=== PATIENT | female | born 1940 | race Caucasian/White ===

== ENCOUNTER → 2019-03-27 | Outpatient (CLI) | payer MEDICARE, OTHER ==
--- NOTE | 2019-03-27 15:55 | XR ---
EXAMINATION TYPE: XR Hip Complete RT DATE OF EXAM: 03/27/2019 CLINICAL HISTORY: Right hip pain and osteoarthritis. TECHNIQUE: Single AP portable view of right hip is obtained immediately postoperatively. COMPARISON: None. FINDINGS: Metallic hardware from right hip arthroplasty is seen and appears satisfactory in alignment and position. There is evidence of recent surgery with subcutaneous gas noted laterally. IMPRESSION: Metallic hardware from right hip arthroplasty is satisfactory in position.
== END | disposition home or self-care (01) ==
LOC: RADXRYALE 15:31
PROVIDERS: ATTEND Orthopaedic Surgery
DX: Z47.1 Aftercare following joint replacement surgery (principal); Z96.641 Presence of right artificial hip joint
CPT/HCPCS: 73502

== ENCOUNTER → 2021-08-08 | Outpatient (CLI) | payer MEDICARE ==
--- NOTE | 2021-08-08 14:10 | CT ---
EXAMINATION TYPE: CT cervical spine wo/w con DATE OF EXAM: 08/08/2021 COMPARISON: None HISTORY: Cspine disorder at C4/5 CT DLP: 606.7 mGycm CONTRAST: Performed without and with IV Contrast, patient injected with 100 mL of Isovue M300. CT of the cervical spine is performed in the axial plane at 2 mm thick sections. Reconstructed image s in the coronal, and sagittal plane are reviewed on the computer. No acute fractures are evident. Vertebral body alignment is normal. There is loss of disc height to the cervical spine. Some endplate Schmorl's node formation may be pre sent at C3. Vertebral body heights are preserved. No spinal canal stenosis is evident Uncovertebral joint hypertrophy is present on the right at C4-C5 with moderate foraminal stenosis. Mi ld bilateral foraminal narrowing is present C5-6 and on the left mildly at C6-7. Following contrast administration no suspicious enhancement is evident. Note is made of calcification of bilateral carotid bifurcations. IMPRESSIONS: 1. Degenerative disc changes through the cervical spine. 2. Some uncovertebral joint hypertrophy is contributing to mild foraminal narrowing discussed above
== END | disposition home or self-care (01) ==
LOC: RADCTMAIN 12:26
PROVIDERS: ATTEND Internal Medicine
DX: M50.30 Other cervical disc degeneration, unspecified cervical region (principal); M50.121 Cervical disc disorder at C4-C5 level with radiculopathy; N28.9 Disorder of kidney and ureter, unspecified
CPT/HCPCS: 82565; 84520; 72127; 36415; Q9967

== ENCOUNTER → 2021-12-10 | Outpatient (CLI) | payer MEDICARE ==
[2021-12-10 11:52] VITALS: BP 145/65; PULSE 62; RESP 18; TEMP 97.7
--- NOTE | 2021-12-10 11:58 | P.CON ---
Consult Note - . Consult date: 12/10/21 Assessment/Plan:: HISTORY OF PRESENT ILLNESS: 81 yr old female as a referral from Dr Le presents today for neck pain. States pain is generally a 5 /10 in intensity, dull and achy in the base of the neck, but sometimes shoots towards the shoulders. With lateral flexion and rotation to the left side, she will feel a cramp & spasm that can last for hours or days. Also admits to on & off tingling in the fingers bilaterally. States this pain has been on & off for about a year. Pt is palliated with medications, patches, heat, physical therapy, massage integrated with physical therapy and use of a soft C collar. PMH: Obesity, Hypothyroidism PSH: Bilateral knee surgeries, Gastric bypass, Hysterectomy, SBO SH: . Denies tobacco or ETOH abuse FH: DM All: See list Meds: See list REVIEW OF ORGAN SYSTEMS: CONSTITUTIONAL: No fevers or chills. No recent weight loss. HEENT: No visual acuity loss, eye pain, difficulties with hearing. No nosebleeds. No difficulty swallowing. RESPIRATORY: Denies any troubles with breathing or dyspnea on exertion. CARDIOVASCULAR: Denies any chest pain, palpitations, or recent heart attacks. GASTROINTESTINAL: Denies fatty food intolerance. Has change in bowel habits and gas bloat. GENITOURINARY: Denies any blood in urine. Has increased urinary frequency. NEUROLOGICAL: + numbness and tingling along the distal extremities. No seizure disorders or headaches. MUSCULOSKELETAL: + back pain SKIN: No skin cancer. No rash. PSYCHIATRIC: Denies current depression or suicidal thoughts. ENDOCRINE: Denies current thyroid disorders. Denies any blood sugar glucose intolerance. HEME/LYMPHATIC: Denies any lumps and bumps around the neck. History of deep venous thrombosis. ALLERGY/IMMUNOLOGY: No immunoglobulin therapy. No immune deficiencies. BREAST: Denies current breast lumps, pain or nipple discharge. Physical Examinations : Constitutional : Cooperative , not in acute distress . HEENT: Neck supple. No Lymphadenopathy. Normal thyroid size . Eyes no ptosis , no icterus, no photophobia . Hearing intact. Normal oropharynx. No Thrush. Respiratory : Chest clear to auscultations bilaterally. No wheezing. No rhonchi. Cardiovascular : Regular rate and rhythm , S1 / S2. No S3 . No S4. Gastrointestinal : Abdomen soft. No tenderness. Bowel sounds x 4. No organomegaly . Genitourinary : Deferred. Neurologic : Cranial nerve II to XII intact. No focal neurological deficits. Psychiatric : alert & oriented x 3. Matching mood & appropriate affect. Judgment & insight intact. Lymphatic No Lymphadenopathy. Musculoskeletal : Cervical Spine Motor strength in the deltoid and biceps: Normal right side. Normal Left side Motor strength biceps and the wrist extensors: Normal right side . Normal left side Motor strength in the triceps muscle: Normal right side. Normal left side Deep tendon reflexes: Normal at the biceps. Normal at Brachioradialis. Normal at triceps Cervical facet loading test: positive on the left at C6 & C7 Spurling test: positive bilaterally Neck distraction test: positive bilaterally Barry sign: positive bilaterally Lumbar spine Motor strength lower extremities ,thigh and legs 5/5 Right side , 5/5 Left side Deep tendon reflexes : Normal Knee Jerk. Normal Ankle Jerk Lumbar facet Loading Test: positive Right / positive Left Range of motion of the lumbar spine Flexion 30 degrees, extension 10 degrees Straight Leg Raise test: Left/ Right positive at degree Lauryn test: positive right / positive left. Severe tenderness over the Sacroiliac joint on the Right / Left sides Gaenslen test: positive bilaterally Seated flexion test: positive bilaterally. Imaging of cervical spine reviewed. Assessment/ Plan : Recommendation of MBB of left C5-C6, C6-C7 Discontinue ASA 5 days prior to procedure May need additional MBBs and/ or RFA based on results Risks/ benefits of procedure discussed and pt verbalized understanding Will follow up 2-4 weeks post procedure for assessment & re evaluation I have spent greater than 50 minutes on patient care today. Dr Graham was available by phone for the evaluation of this patient. The time was used to review the medical records including relevant urine studies and Prescription history (MAPs), review of the available imaging, evaluation and examination of the patient, coordination of care with the medical staff and if applicable referring physicians, as well as creation of the medical record PQRS Measure Charge Sheet Mode of Arrival: Ambulatory - Pain Location Neck Non-Pharmacological Interventions: Heat, Inactivity, Position/Reposition Pharmacological Interventions: PRN Medication, Topical Medication PQRS Narrative: Smoking Status Never smoker Blood Pressure 145/65 Pain Intensity [Neck] 5 Scale Used Numeric (1 - 10) Hx Alcohol Use (MH) Yes Home Medications: Ambulatory Orders Acetaminophen/Diphenhydramine [Tylenol PM 500-25mg] 2 tab PO HS PRN 11/11/15 Multivitamins, Thera [Theragran] 1 each PO DAILY 11/11/15 traMADol HCL [Ultram] 50 mg PO RT-Q12H PRN 11/20/21
== END ==
LOC: PNWHC3 10:24
PROVIDERS: ATTEND Physician Assistant Medical
DX: M54.12 Radiculopathy, cervical region (principal); E03.9 Hypothyroidism, unspecified; Z91.040 Latex allergy status; Z88.8 Allergy status to other drugs, medicaments and biological substances; Z88.6 Allergy status to analgesic agent; Z88.5 Allergy status to narcotic agent; Z91.041 Radiographic dye allergy status
CPT/HCPCS: 99211

== ENCOUNTER 2022-01-23 12:44 | Day surgery (SDC) | payer MEDICARE ==
[2022-01-22 09:42] VITALS: BMI 33.3
--- NOTE | 2022-01-23 13:28 | P.PCN ---
Date of Procedure: 01/23/22 Description of Procedure: Procedure: Cervical Medial Branch Block at left C5 6 and C6-C7 Indications: Neck Pain Diagnosis: Cervical spondylosis without myelopathy Imaging: Fluoroscopy was used, images where saved to the medical record Anesthesia: Per nurse anesthesia please see anesthesia record Description of procedure: The patient was seen and examined in the PO. Symptoms were discussed. I made it very clear that the neck pain and only the neck pain would improve from this procedure, Procedure risks and benefits were fully reviewed with patient. The patient understands this is a diagnostic as well as a therapeutic procedure and that the goal of the procedure is to inject medication on to the medial branch or small nerves that go into the facet joints. In this way, we can hopefully identify which of these joints, if any, may be contributing to their pain. Informed consent for the procedure was obtained. The patient was taken into the office fluoroscopy procedure room and placed supine on the table. Vital signs were closely monitored during the procedure. The skin over the area was prepped with chlorhexidine and draped in usual ster ile manner. Sterile technique was observed throughout procedure. Under fluoroscopic guidance, the target injection areas of the the above noted level's medial branches were visualized in lateral views. Using biplanar fluoroscopy, a 25 gauge 2 inch needle was inserted into proper position where the tip of the needle was located at the midpoint of the quadrangle at each level. After negative aspiration for blood and CSF, 0.5cc of 0.5 % Ropivacaine was injected into each of the targeted areas. The needles were withdrawn intact. No complications were noted during the procedure. The patient tolerated procedure well. The patient was placed in supine position and transferred to the recovery area for observation and remained stable until discharged home. Home discharge instructions given to the patient by the staff. The patient was reexamined prior to discharge. Follow up/plan: If the patient has greater than 80% relief, she should have a second medial branch block done.
[2022-01-23] MEDS ORDERED: LACTATED RINGERS 900 ML IV ONE (13:31)
[2022-01-23] MEDS ORDERED: ROPIVACAINE 5MG/ML 20ML VIAL ONE (13:33)
[2022-01-23] MEDS ORDERED: MIDAZOLAM 2 MG/2 ML VIAL ONE (13:33)
[2022-01-23 13:34] VITALS: TEMP 97.4
[2022-01-23] MEDS ORDERED: IV FLUID CONTINUATION 1,000 ML IV ONE ×2 (13:48)
--- NOTE | 2022-01-23 14:02 | FL ---
Fluoroscopy History: Cervical pain management 5 SEC FL TIME USED CERVICAL FACET
[2022-01-23 14:16] VITALS: BP 139/79; PULSE 75; RESP 16
== END 2022-01-23 14:27 | disposition home or self-care (01) ==
LOC: ORPAIN 12:44
PROVIDERS: ATTEND Hospitalist
DX: M47.812 Spondylosis without myelopathy or radiculopathy, cervical region (principal); Z87.442 Personal history of urinary calculi; Z79.891 Long term (current) use of opiate analgesic; Z88.5 Allergy status to narcotic agent; Z88.8 Allergy status to other drugs, medicaments and biological substances; Z88.6 Allergy status to analgesic agent; Z91.040 Latex allergy status
CPT/HCPCS: 64490; 64491; J2250; J2795

== ENCOUNTER → 2022-03-13 | Day surgery (SDC) | payer MEDICARE ==
[~2022-03-13] MED LIST: DEXAMETHASONE SOD PHOSPHATE 10 MG/ML 1 ML VIAL ONE; IV FLUID CONTINUATION 1,000 ML IV ONE; LACTATED RINGERS 1,000 ML IV SCH; LIDOCAINE 1% (10MG/ML) FOR IV START INTRADERMA PRN; MIDAZOLAM 2 MG/2 ML VIAL ONE; ROPIVACAINE 5MG/ML 20ML VIAL ONE; fentaNYL (PF) 50 MCG/ML 2 ML AMP ONE
[2022-03-13 12:39] VITALS: TEMP 97.2
--- NOTE | 2022-03-13 13:39 | P.PCN ---
Date of Procedure: 03/13/22 Procedure(s) Performed: PREOPERATIVE DIAGNOSIS: 1-Cervical Spondylosis with Facet Arthropathy.without myelopathy. 2-cervical degenerative disc disease POSTOPERATIVE DIAGNOSIS: Same as preoperative diagnosis. PROCEDURES: Diagnostic Left C5 , C6 , C7 medial branch blocks, with fluorosc opic guidance (fluoroscopy images available in radiology department ) ( to target the facet joint at C5- 6, C6-7 )# 2nd ANESTHESIA: Monitored anesthesia care as per anesthesia department . EBL: Minimal PROCEDURE INDICATION: The patient with neck pain secondary to cervical arthropathy unresponsive to more conservative treatments. PROCEDURE DESCRIPTION / TECHNIQUE: The patient was seen and identified in the preoperative area. Risks, benefits, complications, and alternatives were discussed with the patient, the patient agreed to proceed with the procedure and signed the consent. IV was started. Vital signs remained stable throughout the procedure. Patient was taken to the OR and time out was completed. The patient was placed in the lateral position ( left side up )on the procedure table. The cervical area was prepped and draped in the usual sterile fashion. Critical pause was taken. Vital signs were closely monitored during the procedure. Conscious sedation was used during the procedure to decrease patients anxiety. Using cross-table lateral fluoroscopy, the centroid of the trapezoid of left C5 , C6, C7 was identified, marked, and localized with 1% lidocaine 1 ml at each level for skin and Sub Q infiltrations . Subsequently, a 25 G 3spinal needle was advanced guided by fluoroscopy to the centroid of the trapezoid of left C5, C6, C7 . [place] tip position was confirmed at the centroid of the trapezoids of left C5 ,C6, C7 with anteroposterior fluoroscopy. Subsequently, 1.5 ml of preservative-free Ropivacaine 0.5% mixed with Dexamethasone 10 mg and half ml of the mixture was injected after negative aspiration for blood and CSF. [place] was then removed intact. COMPLICATIONS: No acute complications. DISPOSITION / PLANS: The patient was placed in a supine position and transferred to the recovery area in a stable condition for observation and was discharged from the recovery room after meeting discharge criteria. Home discharge instructions given to the patient by the staff. The patient was reexamined prior to discharge. The patient will schedule a follow up in the clinic in 2-4 weeks.
[2022-03-13 13:45] VITALS: BP 148/70; PULSE 78; RESP 12
--- NOTE | 2022-03-13 13:47 | FL ---
Fluoroscopy INDICATION: Pain FINDINGS: Fluoroscopy time: 12 seconds. Images obtained: 2. IMPRESSIONS: 1. Documentation of fluoroscopy.
== END | disposition home or self-care (01) ==
LOC: ORPAIN 12:21
PROVIDERS: ATTEND Specialist
DX: M47.812 Spondylosis without myelopathy or radiculopathy, cervical region (principal); M50.322 Other cervical disc degeneration at C5-C6 level; M19.90 Unspecified osteoarthritis, unspecified site; Z91.040 Latex allergy status; Z88.5 Allergy status to narcotic agent; Z88.2 Allergy status to sulfonamides; Z91.048 Other nonmedicinal substance allergy status; Z79.891 Long term (current) use of opiate analgesic
CPT/HCPCS: 64490; 64491; J2250; J1100; J3010; J2795

== ENCOUNTER → 2022-04-02 | Outpatient (CLI) | payer MEDICARE ==
[2022-04-02 14:18] VITALS: BP 152/88; PULSE 88; RESP 16; TEMP 98.3
--- NOTE | 2022-04-02 14:27 | P.PN ---
Subjective Progress Note Date: 04/02/22 Principal diagnosis: A 82 yr old female with a history of severe and chronic neck pain secondary to cervical degenerative disc diseases and spondylosis with facet arthropathy presents today for evaluation status post facet blocks of the medial branches left C5- C6, C6 -C7 #2. She states she experienced 100% pain relief for 2 days status post procedure. Pain level is currently at 2 out of 10 in intensity, pressure type sensation in the lower aspect of the cervical spine but escalates as high as 10 out of 10 in intensity with extension or with sedentary position. Pain is alleviated with medications, injections, repositioning, stretching and rest. Interventional pain procedures completed include facet blocks of the medial branches left C5-C6, C6-C7 2 Patient is currently on tramadol Patient denies any side effects of the medication(s), denies excessive drowsiness or sleepiness, denies suicidal ideation and reports that the current pain medication is helping to control the pain and improve activities of daily living. Patient denies any motor or sensory deficits. Patient denies any fever or night sweats, denies any change in the bowel movements or urination. Physical Examination: -Constitutional: Cooperative. Not in acute distress . -HEENT: Neck is supple. No lymphadenopathy. No thyromegaly. Normal thyroid size. Eyes: No ptosis , no icterus, no photophobia. ENT: No auditory deficits. Normal oropharynx. No Thrush. - Respiratory: Chest clear to auscultations bilaterally. No wheezing. No rhonchi. - Cardiovascular: Regular rate and rhythm. S1 / S2 , no S3 , no S4. - Gastrointestinal: Abdomen soft no tenderness. Bowel sounds positive in all four quadrants. No organomegaly. - Genitourinary: Deferred. - Neurologic: Cranial nerve II to XII intact. No focal neurological deficits. - Psychatric: Alert & oriented x 3. Matching mood & appropriate affect. Judgment and insight intact. - Lymphatic: No Lymphadenopathy. - Musculoskeletal: Cervical spine: Muscle bulk/ tone/ strength in the bilateral upper extremities normal. Facet loading test cervical area positive on the left Lumbar spine: Motor bulk/ tone/ strength lower extremities , thigh and legs : 5/5 Deep tendon reflexes : Normal Knee Jerk. Normal Ankle Jerk . Vertebral body tenderness to palpation over Lumbar Facet Loading Test positive Straight Leg Raise: positive at 30 degrees right side/ left side Gaenslen's Test positive Sacral spine : Severe tenderness over the Sacroiliac joint: right side / left side Range of motion: Flexion of the lumbar spine <60 degrees Range of motion: Extension of the lumbar spine <20 degrees Gaenslen's Test positive Lauryn test: positive right side / left side Assessment and plan: Chronic neck pain secondary to cervical degenerative disc disease , spondylosis with facet arthropathy without myelopathy Recommendation of R RFA of the left C5-C6, C6 to C7. Risks, benefits of procedure discussed and patient verbalized understanding. Tach coagulant use or medical history of diabetes. All patient questions answered MAPS reviewed and it was appropriate. I have spent 31 minutes on patient care today. Dr Graham was available by phone for the evaluation of this patient. The time was used to review the medical records including relevant urine studies and Prescription history (MAPs), review of the available imaging, evaluation and examination of the patient, coordination of care with the medical staff and if applicable referring physicians, as well as creation of the medical record Objective - Vital Signs Vital signs: Vital Signs Temp 98.3 F 04/02/22 14:01 Pulse 88 04/02/22 14:01 Resp 16 04/02/22 14:01 BP 152/88 04/02/22 14:01 Pulse Ox 95 04/02/22 14:01 Intake & Output 04/01/22 04/02/22 04/02/22 18:59 06:59 18:59 Weight 103.419 kg PQRS Measure Charge Sheet Mode of Arrival: Ambulatory - Pain Location Neck Non-Pharmacological Interventions: Heat, Home Exercise, Inactivity, Physical Therapy, Position/Reposition, Relaxation Technique, Stretching Pharmacological Interventions: Block, Epidural, PRN Medication PQRS Narrative: Smoking Status Never smoker Blood Pressure 152/88 Pain Intensity [Neck] 2 Scale Used Numeric (1 - 10) Hx Alcohol Use (MH) Yes Home Medications: Ambulatory Orders Multivitamins, Thera [Theragran] 2 each PO DAILY 11/11/15 Acetaminophen [Tylenol Extra Strength] 500 mg PO DIRECTED PRN 01/22/22 Vitamin C/Biotin [Hair, Skin and Nails Chew] 1 tab PO DAILY 01/22/22 traMADol HCL [Ultram] 50 mg PO RT-Q6H PRN 3 Days #10 tab 02/09/22 Collagen Powder 1 dose PO DAILY 03/12/22
== END ==
LOC: PNWHC3 13:12
PROVIDERS: ATTEND Specialist
DX: M50.30 Other cervical disc degeneration, unspecified cervical region (principal); G89.29 Other chronic pain; M47.812 Spondylosis without myelopathy or radiculopathy, cervical region; E11.9 Type 2 diabetes mellitus without complications; Z91.040 Latex allergy status; Z88.5 Allergy status to narcotic agent; Z88.2 Allergy status to sulfonamides; Z88.6 Allergy status to analgesic agent; Z88.8 Allergy status to other drugs, medicaments and biological substances; Z91.041 Radiographic dye allergy status
CPT/HCPCS: 99211

== ENCOUNTER 2022-05-08 10:49 | Day surgery (SDC) | payer MEDICARE ==
[2022-05-08] MEDS ORDERED: LACTATED RINGERS 1,000 ML IV SCH (11:02)
[2022-05-08] MEDS ORDERED: LIDOCAINE 1% (10MG/ML) FOR IV START INTRADERMA PRN (11:02)
[2022-05-08 11:14] VITALS: TEMP 97.7
[2022-05-08] MEDS ORDERED: ROPIVACAINE 5MG/ML 20ML VIAL ONE (12:28)
[2022-05-08] MEDS ORDERED: methylPREDNISolone ACETATE 40 MG/ML 1 ML VIAL ONE (12:28)
[2022-05-08] MEDS ORDERED: fentaNYL (PF) 50 MCG/ML 2 ML AMP ONE (12:28)
[2022-05-08] MEDS ORDERED: MIDAZOLAM 2 MG/2 ML VIAL ONE (12:28)
--- NOTE | 2022-05-08 12:59 | P.PCN ---
Date of Procedure: 05/08/22 Procedure(s) Performed: PREOPERATIVE DIAGNOSIS: Cervical spondylosis with Facet Arthropathy without myelopathy. POSTOPERATIVE DIAGNOSIS: Cervical spondylosis with Facet Arthropathy without myelopathy. PROCEDURES: Radiofrequency thermocoagulation, Left C5, C6 , C7 medial branch with Fluroscopy [place](fluoroscopy was available in Radiology department ) (to denervate the facet joint at Left C5- 6, C6-7 ) ANESTHESIA: Monitored anesthesia care as per anesthesia department . EBL: Minimal PROCEDURE INDICATION: The patient with neck pain secondary to cervical arthropathy who had more than 50% relief of her pain with previous diagnostic cervical medial branch block. PROCEDURE DESCRIPTION / TECHNIQUE: The patient was seen and identified in the preoperative area. Risks, benefits, complications, and alternatives were discussed with the patient, the patient agreed to proceed with the procedure and signed the consent. IV was started. Vital signs remained stable throughout the procedure. Patient was taken to the OR and time out was completed. The patient was placed in the Lateral position on the procedure table ( Left side up ). The cervical area was prepped and draped in the usual sterile fashion. Critical pause was taken. Vital signs were closely monitored during the procedure. Conscious sedation was used during the procedure to decrease patients anxiety. Using cross-table lateral fluoroscopy, the centroid of the trapezoid of Left C5, C6 , C7 were identified, marked, and localized with 1% lidocaine. Subsequently, a 20 [id number] radiofrequency cannula with a 10-mm active tip was advanced guided by fluoroscopy to the centroid of the trapezoid of Left C5, C6,C7. Needle tip position was confirmed at the centroid of the trapezoids of Left C5, C6, C7 with anteroposterior fluoroscopy. Each site then underwent sensory testing at 50 Hz and 0 to 1 volt and motor testing at 2 Hz and 0 to 3 volt with local stimulation, but no radicular symptoms down the arm. Thereafter each sites underwent radiofrequency thermocoagulation at 80 degrees celsius for 90 seconds after injecting 0.5 ml of PF Ropivacaine 0.5 %. After thermocoagulation, 1 ml of the block solution containing Depo-Medrol 40 mg and 3 mL of preservative-free normal saline was injected at the Left C5,C6 , C7 levels after negative aspiration of CSF and blood and with no paresthesias. Cannulas were retracted while injecting lidocaine 1% until the needle is out. Skin was cleansed and bandages were applied. COMPLICATIONS: No acute complications. DISPOSITION / PLANS: The patient was placed in a supine position and transferred to the recovery area in a stable condition for observation and was discharged from the recovery room after meeting discharge criteria. Home discharge instructions given to the patient by the staff. The patient was reexamined prior to discharge. The patient will schedule a follow up in the clinic in 2-4 weeks.
[2022-05-08] MEDS ORDERED: IV FLUID CONTINUATION 500 ML IV ONE (13:00)
--- NOTE | 2022-05-08 13:10 | FL ---
EXAMINATION TYPE: FL guided pain mgmt statistic DATE OF EXAM: 05/08/2022 HISTORY: Cerv Rad Freq 7sec fluoro time,2 images to PACS
[2022-05-08 13:22] VITALS: RESP 20
[2022-05-08 13:24] VITALS: BP 152/70; PULSE 70
== END 2022-05-08 13:30 | disposition home or self-care (01) ==
LOC: ORPAIN 10:49
PROVIDERS: ATTEND Specialist
DX: M47.22 Other spondylosis with radiculopathy, cervical region (principal); Z88.2 Allergy status to sulfonamides; Z88.3 Allergy status to other anti-infective agents; Z91.040 Latex allergy status; Z88.5 Allergy status to narcotic agent; Z88.6 Allergy status to analgesic agent; Z91.09 Other allergy status, other than to drugs and biological substances
CPT/HCPCS: 64633; 64634; J2250; J1030; J3010; J2795

== ENCOUNTER → 2022-05-28 | Outpatient (CLI) | payer MEDICARE ==
[2022-05-28 13:27] VITALS: BP 132/90; PULSE 78; RESP 16; TEMP 98
--- NOTE | 2022-05-28 14:12 | P.PAINPG ---
PQRS Measure Charge Sheet Comment: A 82 yr old female with a history of severe and chronic low back pain secondary to lumbar degenerative disc diseases and lumbar spondylosis with facet arthropathy presents today for evaluation status post L RFA C5- C6, C6- C7. She states she experienced approximately 100% pain relief s/p procedure. Pain level is is currently at 1/10 in intensity, localized to the lower aspect of her cervical spine, intermittent, dull/ achy in character. Pain is provoked by L flexion /rotation. Pain is alleviated with medications ( Tramadol, Tylenol ), [place] patches, use of a soft C collar, repositioning and rest. Interventional pain procedures completed include L RFA C5-C6, C6-C7. Patient is currently on Tramadol prn Patient denies any side effects of the medication(s), denies excessive drowsiness or sleepiness, denies suicidal ideation and reports that the current pain medication is helping to control the pain and improve activities of daily living. Patient denies any motor or sensory deficits. Patient denies any fever or night sweats, denies any change in the bowel movements or urination. Physical Examination: -Constitutional: Cooperative. Not in acute distress . - Neurologic: Cranial nerve II to XII intact. No focal neurological deficits. - Psychatric: Alert & oriented x 3. Matching mood & appropriate affect. Judgment and insight intact. - Musculoskeletal: Cervical spine: Muscle bulk/ tone/ strength in the bilateral upper extremities normal Vertebral body tenderness to palpation over C6, C7 Spurling test positive Distraction test positive Facet loading test positive Thoracic spine Muscle bulk / tone/ strength in the bilateral paraspinal muscles normal Vertebral body tender to palpation over Facet loading test positive Lumbar spine: Motor bulk/ tone/ strength lower extremities , thigh and legs : 5/5 Deep tendon reflexes : Normal Knee Jerk. Normal Ankle Jerk . Vertebral body tenderness to palpation over Lumbar Facet Loading Test positive Straight Leg Raise: positive at 30 degrees right side/ left side Gaenslen's Test positive Sacral spine : Severe tenderness over the Sacroiliac joint: right side / left side Range of motion: Flexion of the lumbar spine <60 degrees Range of motion: Extension of the lumbar spine <20 degrees Gaenslen's Test positive Jeremy's Test positive Lauryn test: positive right side / left side Thigh Thrust Test Sacral Thrust Test Assessment and plan: Chronic low back pain secondary to lumbar degenerative disc disease , lumbar spondylosis with facet arthropathy without myelopathy Recommendation of JU C6-C7. May need a series of injections, up to 3 within a 6 mo period for optimal pain relief. Risks, benefits of procedure discussed and pt verbalized understanding. Denies anticoagulant use or medical history of diabetes. All patient questions answered MAPS reviewed and it was appropriate. Prescription for Lidoderm 5% patches QAM #30, 1 refill. Use, side effects and interactions discussed and pt verbalized understanding. I have spent less than 30 minutes on patient care today. Dr Graham was available by phone for the evaluation of this patient. The time was used to review the medical records including relevant urine studies and Prescription history (MAPs), review of the available imaging, evaluation and examination of the patient, coordination of care with the medical staff and if applicable referring physicians, as well as creation of the medical record - Pain Location Lower Neck Non-Pharmacological Interventions: Darkened Room, Distraction, Environmental Control, Heat, Home Exercise, Ice, Physical Therapy, Stretching Pharmacological Interventions: PRN Medication PQRS Narrative: Smoking Status Never smoker Hx Alcohol Use (MH) Yes Home Medications: Ambulatory Orders Multivitamins, Thera [Theragran] 2 each PO DAILY 11/11/15 Acetaminophen [Tylenol Extra Strength] 500 mg PO DIRECTED PRN 01/22/22 Vitamin C/Biotin [Hair, Skin and Nails Chew] 1 tab PO DAILY 01/22/22 traMADol HCL [Ultram] 50 mg PO RT-Q6H PRN 3 Days #10 tab 02/09/22 Collagen Powder 1 dose PO DAILY 03/12/22 Controlled Substance Measures - Controlled Substance Measures Is patient prescribed a controlled substance at discharge?: No
== END ==
LOC: PNWHC3 12:39
PROVIDERS: ATTEND Specialist
DX: M51.36 Other intervertebral disc degeneration, lumbar region (principal); M47.816 Spondylosis without myelopathy or radiculopathy, lumbar region; G89.29 Other chronic pain; Z91.040 Latex allergy status; Z91.041 Radiographic dye allergy status; Z88.5 Allergy status to narcotic agent; Z88.2 Allergy status to sulfonamides; Z88.6 Allergy status to analgesic agent
CPT/HCPCS: 99211

== ENCOUNTER 2022-11-10 09:52 | Emergency (ER) | payer MEDICARE ==
[2022-11-10 10:28] VITALS: RESP 18
--- NOTE | 2022-11-10 11:19 | ED ---
Fall HPI - General Chief Complaint: Fall Stated Complaint: fall - facial injury Time Seen by Provider: 11/10/22 10:52 Source: patient, RN notes reviewed Mode of arrival: ambulatory Limitations: no limitations - History of Present Illness Initial Comments: This an 82-year-old female presents emergency Department chief complaint of trip and fall. Patient states her foot caught causing her fall she did strike her face she has abrasion on the right side of her nose she states her tetanus is up-to-date. She does complain of mild frontal headache, a total pain. Denies any epistaxis. Patient does admit she fell onto her right knee complains of right knee pain. Denies any hip pain or any difficulty ambulating. Patient denies neck pain, back pain upper extremity injury. - Related Data Home Medications Medication Instructions Recorded Confirmed Multivitamins, Thera [Theragran] 2 each PO DAILY 11/11/15 05/28/22 Acetaminophen [Tylenol Extra 500 mg PO DIRECTED PRN 01/22/22 05/28/22 Strength] Vitamin C/Biotin [Hair, Skin and 1 tab PO DAILY 01/22/22 05/28/22 Nails Chew] Collagen Powder 1 dose PO DAILY 03/12/22 05/28/22 Previous Rx's Medication Instructions Recorded traMADol HCL [Ultram] 50 mg PO RT-Q6H PRN 3 Days #10 tab 02/09/22 Allergies Allergy/AdvReac Type Severity Reaction Status Date / Time latex Allergy Severe Swelling Verified 11/10/22 10:28 of Lips, Nodules on skin. povidone-iodine Allergy Unknown Rash/Hives/ Verified 11/10/22 10:28 [From Betadine] itching soap [From Betadine] Allergy Unknown Rash/Hives Verified 11/10/22 10:28 hydrocodone [From [place]] Allergy Itching Verified 11/10/22 10:28 sulfamethoxazole Allergy Rash/Hives Verified 11/10/22 10:28 [From Bactrim] trimethoprim [From Bactrim] Allergy Rash/Hives Verified 11/10/22 10:28 NSAIDS (Non-Steroidal AdvReac Unknown HX OF Verified 11/10/22 10:28 Anti-Inflamma STOMACH ULCER Review of Systems ROS Statement: Those systems with pertinent positive or pertinent negative responses have been documented in the HPI. ROS Other: All systems not noted in ROS Statement are negative. Past Medical History Past Medical History: Osteoarthritis (OA) Additional Past Medical History / Comment(s): HX OF KIDNEY STONES, PEPTIC ULCER , jose m cataracts, COVID VACCINE MODERNA 2ND DOSE 04/08/21, BOOSTER DOSE 10/10/21. History of Any Multi-Drug Resistant Organisms: None Reported Past Surgical History: Bariatric Surgery, Hysterectomy, Joint Replacement, Orthopedic Surgery, Tonsillectomy Additional Past Surgical History / Comment(s): IVC FILTER RIGHT GROIN, GASTRIC BYPASS (NOV 2009) AND 9 DAYS LATER SURGERY FOR BOWEL OBSTRUCTION., JOSE M KNEE REPLACEMENT, CYST LEFT WRIST. RIGHT ROTATOR CUFF REPAIR, rt hip replacement Past Anesthesia/Blood Transfusion Reactions: Motion Sickness Past Psychological History: No Psychological Hx Reported Smoking Status: Never smoker Past Alcohol Use History: None Reported Past Drug Use History: None Reported - Past Family History Mother Family Medical History: Cancer Additional Family Medical History / Comment(s): OVARIAN Sister(s) Family Medical History: Cancer Additional Family Medical History / Comment(s): breast Brother(s) Family Medical History: Cancer Additional Family Medical History / Comment(s): BONE CANCER General Exam Limitations: no limitations General appearance: alert, in no apparent distress Head exam: Present: atraumatic, normocephalic, normal inspection Eye exam: Present: normal appearance, PERRL, EOMI, periorbital swelling (Right ecchymosis), periorbital tenderness (Right). Absent: scleral icterus, conju nctival injection ENT exam: Present: normal oropharynx, mucous membranes moist. Absent: normal exam (Right nasal abrasion, no active bleeding) Neck exam: Present: normal inspection, full ROM. Absent: tenderness, meningismus, lymphadenopathy Respiratory exam: Present: normal lung sounds bilaterally. Absent: respiratory distress, wheezes, rales, rhonchi, stridor Cardiovascular Exam: Present: regular rate, normal rhythm, normal heart sounds. Absent: systolic murmur, diastolic murmur, rubs, gallop, clicks Extremities exam: Present: other (Small area of ecchymosis abrasion to the right knee, tenderness palpation neurovascular intact remaining extremity exam within normal limits) Back exam: Present: full ROM. Absent: tenderness Neurological exam: Present: alert, oriented X3, CN II-XII intact, reflexes normal. Absent: motor sensory deficit Skin exam: Present: warm, dry, intact, normal color. Absent: rash Course Vital Signs 11/10/22 10:25 Temperature 98.5 F Pulse Rate 66 Respiratory 18 Rate Blood Pressure 157/72 O2 Sat by Pulse 98 Oximetry Medical Decision Making - Medical Decision Making 82-year-old presented after a fall. CT and x-rays are obtained no acute abnormality. Patient has a facial abrasion will be cleaned, bacitracin applied. Disposition Clinical Impression: Fall, Closed head injury, Facial contusion, Nasal abrasion Disposition: HOME SELF-CARE Condition: Stable Instructions (If sedation given, give patient instructions): Head Injury (ED) Additional Instructions: Please return to the Emergency Department if symptoms worsen or any other concerns. Is patient prescribed a controlled substance at d/c from ED?: No Referrals: Jackie Perez MD [Primary Care Provider] - 1-2 days Time of Disposition: 11:59
--- NOTE | 2022-11-10 11:41 | CT ---
EXAMINATION TYPE: CT brain lety herndon con DATE OF EXAM: 11/10/2022 COMPARISON: 08/08/2021 HISTORY: Fall-facial injury CT DLP: 1153.[address] of the brain was performed. The ventricles, basal cisterns and sulci overlying the cerebral convexities demonstrate mild enlargem ent. There is no evidence for intracranial hemorrhage or sulcal effacement. There is decreased attenuatio n about the periventricular white matter and deep white matter of both cerebral hemispheres, compatib le with chronic small vessel ischemia. No mass effects are seen. If symptoms persist consider MRI. Osseous calvarium is intact. IMPRESSION: 1. Age related atrophic and chronic small vessel ischemic change without acute intracranial process seen at this time. CT Cervical Spine: Unenhanced CT of the cervical spine was performed with bone and soft tissue window settings submitted . Coronal and sagittal reconstruction is obtained. There is normal alignment and prevertebral soft tissues. No evidence for acute cervical fracture . Scattered degenerative disc disease and spondylosis. Biapical scarring. IMPRESSION: 1. No evidence for acute fracture or subluxation of the cervical spine.
--- NOTE | 2022-11-10 11:45 | CT ---
EXAMINATION TYPE: CT facial bones wo con DATE OF EXAM: 11/10/2022 COMPARISON: None HISTORY: Fall-Facial injury CT DLP: 1153.[address] of the facial bones was performed in the axial and coronal planes. Bone and soft tissu e window settings are submitted. Mild soft tissue swelling about the nasion. I do not see evidence for displaced facial bone fracture or depressed facial bone fracture. The globes are intact. Paranasal sinuses are well-aerated. IMPRESSION: 1. No evidence for depressed or displaced facial bone fracture.
--- NOTE | 2022-11-10 11:47 | XR ---
EXAMINATION TYPE: XR knee complete RT DATE OF EXAM: 11/10/2022 11:33 AM INDICATION: Patient age:Female; 82 years old; Reason for study: trauma; PHH. COMPARISON: None. TECHNIQUE: The Right knee(s) was examined in frontal, lateral, and crosstable lateral projections. FINDINGS: Limited examination due to patient's body habitus. Post surgical changes from the arthroplasty with distal femoral and proximal tibial components. Hardw are appears intact with appropriate alignment. Diffuse bone demineralization was limits evaluation. N o acute fracture or dislocation. No joint effusion. Vascular sclerosis. Diffuse subcutaneous edema. IMPRESSION: 1. No acute osseous pathology. 2. Postsurgical changes from arthroplasty. Hardware appears intact with appropriate alignment. 3. Diffuse subcutaneous edema.
[2022-11-10] MEDS ORDERED: BACITRACIN OINT 1 EACH PACKET TOPICAL ONE (12:05)
[2022-11-10 12:27] VITALS: BP 147/82; PULSE 74; TEMP 98
== END 2022-11-10 12:29 | disposition home or self-care (01) ==
LOC: EC 09:52
DX: S00.83XA Contusion of other part of head, initial encounter (principal); S00.31XA Abrasion of nose, initial encounter; S09.90XA Unspecified injury of head, initial encounter; Z88.1 Allergy status to other antibiotic agents; Z88.2 Allergy status to sulfonamides; Z88.5 Allergy status to narcotic agent; Z88.6 Allergy status to analgesic agent; Z91.040 Latex allergy status; Z88.8 Allergy status to other drugs, medicaments and biological substances; W01.0XXA Fall on same level from slipping, tripping and stumbling without subsequent striking against object, initial encounter
CPT/HCPCS: 70450; 70486; 72125; 99284

== ENCOUNTER 2022-12-01 17:20 | Emergency (ER) | payer MEDICARE ==
[2022-12-01 17:27] VITALS: RESP 18; TEMP 98
[2022-12-01 18:28] LABS: Basophils % (A) 1 %; Eosinophils # (A) 0.1 k/uL (0-0.7); Eosinophils % (A) 3 %; HCT 41.2 % (34.0-46.0); HGB 13.3 gm/dL (11.4-16.0); Hypochromasia Slight; Lymphocytes % (A) 20 %; MCHC 32.4 g/dL (31.0-37.0); Mean Platelet Volume 8.3; Monocytes # (A) 0.4 k/uL (0-1.0); Monocytes % (A) 7 %; Neutrophils # (A) 3.5 k/uL (1.3-7.7); Neutrophils % (A) 68 %; Platelet Count 252 k/uL (150-450); RBC 4.16 m/uL (3.80-5.40); RDW 13.5 % (11.5-15.5); WBC 5.1 k/uL (3.8-10.6)
[2022-12-01 18:40] LABS: Albumin 3.8 g/dL (3.5-5.0); Calcium 8.6 mg/dL (8.4-10.2); Magnesium 2.1 mg/dL (1.6-2.3); Potassium 4.5 mmol/L (3.5-5.1); Total Bilirubin 0.5 mg/dL (0.2-1.3); Total Protein 7.3 g/dL (6.3-8.2)
--- NOTE | 2022-12-01 18:52 | CT ---
EXAMINATION TYPE: CT brain wo con CT DLP: 1190.4 mGycm, Automated exposure control for dose reduction was used. DATE OF EXAM: 12/01/2022 6:39 PM COMPARISON: 11/10/2022 CLINICAL INDICATION:Female, 82 years old with history of fall injury, fall TECHNIQUE: Brain: Axial CT images of the brain were obtained with coronal and sagittal reformats created and rev iewed. Contrast used: None. Oral contrast used: None. FINDINGS: Brain: Extra-axial spaces: No abnormal extra-axial fluid collections. Ventricular system: Within normal limits Cerebral parenchyma: No acute intraparenchymal hemorrhage or mass effect. The suazo-white junction is well differentiated. Scattered hypoattenuating areas are seen within the white matter. Cerebellum: Unremarkable. Mass effect: No evidence of midline shift. Intracranial vasculature: Atherosclerotic calcifications of the intracranial vessels. Soft tissues: Normal. Calvarium/osseous structures: No depressed skull fracture. Paranasal sinuses and mastoid air cells: Mild scattered paranasal sinus disease. Visualized orbits: Bilateral aphakia IMPRESSION: 1. No acute intracranial process. 2. Nonspecific white matter changes, likely secondary to chronic small vessel ischemic disease.
[2022-12-01 18:57] LABS: Partial Thromboplastin Time 24.9 sec (22.0-30.0); Prothrombin Time 10.2 sec (9.0-12.0)
[2022-12-01 19:44] LABS: Appearance,Urine Clear (Clear); Bilirubin,Urine Negative (Negative); Blood,Urine Small (Negative); Color,Urine Light Yellow; Glucose,Urine (UA) Negative (Negative); Ketones,Urine 1+ (Negative); Leukocyte Esterase,Urine Moderate (Negative); Mucus,Urine Rare /hpf; Nitrite,Urine Negative (Negative); PH, Urine 5.5 (5.0-8.0); Protein,Urine Negative (Negative); RBC,Urine 15 /hpf (0-5); Specific Gravity,Urine 1.013 (1.001-1.035); Squamous Epithelial Cell,Urine 1 /hpf (0-4); Urobilinogen,Urine <2.0 mg/dL (<2.0); WBC,Urine 7 /hpf (0-5)
[2022-12-01] MEDS ORDERED: SODIUM CHLORIDE 0.9% 500 ML 500 ML IV STA (20:21)
--- NOTE | 2022-12-01 20:30 | ED ---
Weakness HPI - General Chief complaint: Weakness Stated complaint: dizziness, nausea - post fall Time Seen by Provider: 12/01/22 17:36 Source: patient Mode of arrival: ambulatory Limitations: no limitations - History of Present Illness Initial comments: Patient is an 82-year-old woman who presents to have reevaluation for possible head injury. The patient had a fall and was seen here earlier within the week. She states she had ground level fall did have head injury. No loss consciousness. She has continued to have fatigue, generalized weakness, and some nausea with decreased oral intake. Patient denies change in vision or hearing. No focal weakness or sensory change. MD Complaint: generalized weakness Onset/Timin -: days(s) Location: generalized Severity: mild Quality: dull (Headache) Improves with: none Worsens with: none Associated Symptoms: nausea/vomiting, other (Headache) - Related Data Home Medications Medication Instructions Recorded Confirmed Multivitamins, Thera [Theragran] 1 tab PO DAILY 11/11/15 12/01/22 Acetaminophen [Tylenol Extra 1,000 mg PO HS 01/22/22 12/01/22 Strength] Sleep Aid 2 tab PO HS 12/01/22 12/01/22 Vit C/E/Zn/Coppr/Lutein/Zeaxan 1 cap PO DAILY 12/01/22 12/01/22 [Preservision Areds 2 Softgel] Allergies Allergy/AdvReac Type Severity Reaction Status Date / Time latex Allergy Severe Swelling Verified 12/01/22 20:19 of Lips, Nodules on skin. povidone-iodine Allergy Unknown Rash/Hives/ Verified 12/01/22 20:19 [From Betadine] itching soap [From Betadine] Allergy Unknown Rash/Hives Verified 12/01/22 20:19 hydrocodone [From [place]] Allergy Itching Verified 12/01/22 20:19 sulfamethoxazole Allergy Rash/Hives Verified 12/01/22 20:19 [From Bactrim] trimethoprim [From Bactrim] Allergy Rash/Hives Verified 12/01/22 20:19 NSAIDS (Non-Steroidal AdvReac Unknown HX OF Verified 12/01/22 20:19 Anti-Inflamma STOMACH ULCER Review of Systems ROS Statement: Those systems with pertinent positive or pertinent negative responses have been documented in the HPI. ROS Other: All systems not noted in ROS Statement are negative. Constitutional: Reports: weakness. Denies: fever, chills Eyes: Denies: eye pain, vision change ENT: Denies: epistaxis Respiratory: Denies: cough, dyspnea Cardiovascular: Denies: chest pain, palpitations, syncope Gastrointestinal: Reports: nausea. Denies: abdominal pain, vomiting, diarrhea, melena, hematochezia Genitourinary: Denies: dysuria, hematuria Musculoskeletal: Denies: back pain Skin: Denies: rash Neurological: Reports: headache. Denies: weakness, numbness, paresthesias Past Medical History Past Medical History: Osteoarthritis (OA) Additional Past Medical History / Comment(s): HX OF KIDNEY STONES, PEPTIC ULCER , jose m cataracts, COVID VACCINE MODERNA 2ND DOSE 04/08/21, BOOSTER DOSE 10/10/21. History of Any Multi-Drug Resistant Organisms: None Reported Past Surgical History: Bariatric Surgery, Hysterectomy, Joint Replacement, Orthopedic Surgery, Tonsillectomy Additional Past Surgical History / Comment(s): IVC FILTER RIGHT GROIN, GASTRIC BYPASS (NOV 2009) AND 9 DAYS LATER SURGERY FOR BOWEL OBSTRUCTION., JOSE M KNEE REPLACEMENT, CYST LEFT WRIST. RIGHT ROTATOR CUFF REPAIR, rt hip replacement Past Anesthesia/Blood Transfusion Reactions: Motion Sickness Past Psychological History: No Psychological Hx Reported Smoking Status: Never smoker Past Alcohol Use History: None Reported Past Drug Use History: None Reported - Past Family History Mother Family Medical History: Cancer Additional Family Medical History / Comment(s): OVARIAN Sister(s) Family Medical History: Cancer Additional Family Medical History / Comment(s): breast Brother(s) Family Medical History: Cancer Additional Family Medical History / Comment(s): BONE CANCER General Exam Limitations: no limitations General appearance: alert, in no apparent distress Head exam: Present: atraumatic, normocephalic Eye exam: Present: normal appearance, PERRL, EOMI. Absent: scleral icterus, conjunctival injection ENT exam: Present: normal oropharynx, TM's normal bilaterally, normal external ear exam Neck exam: Present: normal inspection, full ROM. Absent: tenderness Respiratory exam: Present: normal lung sounds bilaterally. Absent: respiratory distress, wheezes, rales, rhonchi, stridor Cardiovascular Exam: Present: regular rate, normal rhythm, normal heart sounds. Absent: systolic murmur, diastolic murmur, rubs, gallop GI/Abdominal exam: Present: soft. Absent: distended, tenderness, guarding, rebound, rigid, mass Extremities exam: Present: normal inspection, normal capillary refill. Absent: pedal edema, calf tenderness Back exam: Present: normal inspection. Absent: CVA tenderness (R), CVA tenderness (L) Neurological exam: Present: alert, oriented X3, CN II-XII intact. Absent: motor sensory deficit Skin exam: Present: warm, dry, intact, normal color. Absent: rash Course Vital Signs 12/01/22 12/01/22 12/01/22 17:22 19:07 20:49 Temperature 98 F Pulse Rate 64 75 77 Respiratory 18 18 18 Rate Blood Pressure 145/75 152/72 144/65 O2 Sat by Pulse 99 98 97 Oximetry Medical Decision Making - Medical Decision Making Reviewed the results with patient. She denies having any urinary symptoms. She states that whenever she has a urine specimen checked there is always a trace of blood in it. She declines treatment related to this. Patient is sent for computed tomography scan of the head, which is interpreted by myself as not showing cranial fracture or intracranial hemorrhage. Patient's 82-year-old woman here to have evaluation if she is having continuing symptoms of nausea, fatigue, generalized weakness following ground-level fall. Symptoms may indeed be accounting representative of mild concussion and will have patient follow with neurology for further evaluation and treatment. Discussed appropriate return parameters and follow-up Was pt. sent in by a medical professional or institution? @ -[No Did you speak to anyone other than the patient for history? @ -[Family Did you review nursing and triage notes? @ -[agree Were old charts reviewed? @ -[Previous emergency visit Differential Diagnosis? @ -[Differential Weakness: Hypoglycemia, shock, sepsis, hyponatremia, anemia, infection, RI, ETOH, adverse medicine reaction, overdose, stroke, head injury, this is not meant to be an all-inclusive list. EKG interpreted by me (3pts min.)? @ -[none] X-rays interpreted by me (1pt min.)? @ -[none] CT interpreted by me (1pt min.)? @ -[See above U/S interpreted by me (1pt. min.)? @ -[none] What testing was considered but not performed? (CT, X-rays, U/S, labs)? Why? @ [ What meds were considered but not given? Why? @ -[none] Did you discuss the management of the patient with other professionals? @ -[None Did you reconcile home meds? @ -[none] Was smoking cessation discussed for >3mins.? @ -[none] Was critical care preformed (if so, how long)? @ -[none] Were there social determinants of health that impacted care today? How? (Homelessness, low income, unemployed, alcoholism, drug addiction, transportation, low edu. Level, literacy, decrease access to med. care, nursing home, rehab)? @ -[None Was there de-escalation of care discussed even if they declined? (Discuss DNR or withdrawal of care, Hospice)? @ -[No What co-morbidities impacted this encounter? (DM, HTN, Smoking, COPD, CAD, Cancer, CVA, Hep., AIDS, mental health diagnosis, sleep apnea, morbid obesity)? @ -[None Was patient admitted / discharged? @ -[Discharged Undiagnosed new problem with uncertain prognosis? @ -[none] Drug Therapy requiring intensive monitoring for toxicity (Heparin, Nitro, Insulin, Cardizem)? @ -[none] Were any procedures done? @ -[none] Diagnosis/symptom? @ -[Closed head injury/concussion Acute, or Chronic, or Acute on Chronic? @ -[Acute Uncomplicated (without systemic symptoms) or Complicated (systemic symptoms)? @ -[Conjugated Side effects of treatment? @ -[none] Exacerbation, Progression, or Severe Exacerbation] @ -[no] Poses a threat to life or bodily function? @ -[no] - Lab Data Result diagrams: 12/01/22 18:18 12/01/22 18:18 Lab Results 12/01/22 12/01/22 12/01/22 Range/Units 18:18 18:18 18:18 WBC 5.1 (3.8-10.6) k/uL RBC 4.16 (3.80-5.40) m/uL Hgb 13.3 (11.4-16.0) gm/dL Hct 41.2 (34.0-46.0) % MCV 99.0 (80.0-100.0) fL MCH 32.0 (25.0-35.0) pg MCHC 32.4 (31.0-37.0) g/dL RDW 13.5 (11.5-15.5) % Plt Count 252 (150-450) k/uL MPV 8.3 Neutrophils % 68 % Lymphocytes % 20 % Monocytes % 7 % Eosinophils % 3 % Basophils % 1 % Neutrophils # 3.5 (1.3-7.7) k/uL Lymphocytes # 1.0 (1.0-4.8) k/uL Monocytes # 0.4 (0-1.0) k/uL Eosinophils # 0.1 (0-0.7) k/uL Basophils # 0.0 (0-0.2) k/uL Hypochromasia Slight PT 10.2 (9.0-12.0) sec INR 1.0 (<1.2) APTT 24.9 (22.0-30.0) sec Sodium 139 (137-145) mmol/L Potassium 4.5 (3.5-5.1) mmol/L Chloride 106 (98-107) mmol/L Carbon Dioxide 28 (22-30) mmol/L Anion Gap 5 mmol/L BUN 23 H (7-17) mg/dL Creatinine 0.86 (0.52-1.04) mg/dL Est GFR (CKD-EPI)AfAm 73 (>60 ml/min/1.73 sqM) Est GFR (CKD-EPI)NonAf 64 (>60 ml/min/1.73 sqM) Glucose 109 H (74-99) mg/dL Plasma Lactic Acid Dao (0.7-2.0) mmol/L Calcium 8.6 (8.4-10.2) mg/dL Magnesium 2.1 (1.6-2.3) mg/dL Total Bilirubin 0.5 (0.2-1.3) mg/dL AST 33 (14-36) U/L ALT 20 (4-34) U/L Alkaline Phosphatase 93 (38-126) U/L Troponin I (0.000-0.034) ng/mL Total Protein 7.3 (6.3-8.2) g/dL Albumin 3.8 (3.5-5.0) g/dL Urine Color Urine Appearance (Clear) Urine pH (5.0-8.0) Ur Specific [place] (1.001-1.035) Urine Protein (Negative) Urine Glucose (UA) (Negative) Urine Ketones (Negative) Urine Blood (Negative) Urine Nitrite (Negative) Urine Bilirubin (Negative) Urine Urobilinogen (<2.0) mg/dL Ur Leukocyte Esterase (Negative) Urine RBC (0-5) /hpf Urine WBC (0-5) /hpf Ur Squamous Epith Cells (0-4) /hpf Urine Mucus (None) /hpf Influenza Type A (PCR) (Not Detectd) Influenza Type B (PCR) (Not Detectd) RSV (PCR) (Not Detectd) SARS-CoV-2 (PCR) (Not Detectd) 12/01/22 12/01/22 12/01/22 Range/Units 18:18 18:18 18:26 WBC (3.8-10.6) k/uL RBC (3.80-5.40) m/uL Hgb (11.4-16.0) gm/dL Hct (34.0-46.0) % MCV (80.0-100.0) fL MCH (25.0-35.0) pg MCHC (31.0-37.0) g/dL RDW (11.5-15.5) % Plt Count (150-450) k/uL MPV Neutrophils % % Lymphocytes % % Monocytes % % Eosinophils % % Basophils % % Neutrophils # (1.3-7.7) k/uL Lymphocytes # (1.0-4.8) k/uL Monocytes # (0-1.0) k/uL Eosinophils # (0-0.7) k/uL Basophils # (0-0.2) k/uL Hypochromasia PT (9.0-12.0) sec INR (<1.2) APTT (22.0-30.0) sec Sodium (137-145) mmol/L Potassium (3.5-5.1) mmol/L Chloride (98-107) mmol/L Carbon Dioxide (22-30) mmol/L Anion Gap mmol/L BUN (7-17) mg/dL Creatinine (0.52-1.04) mg/dL Est GFR (CKD-EPI)AfAm (>60 ml/min/1.73 sqM) Est GFR (CKD-EPI)NonAf (>60 ml/min/1.73 sqM) Glucose (74-99) mg/dL Plasma Lactic Acid Dao 0.9 (0.7-2.0) mmol/L Calcium (8.4-10.2) mg/dL Magnesium (1.6-2.3) mg/dL Total Bilirubin (0.2-1.3) mg/dL AST (14-36) U/L ALT (4-34) U/L Alkaline Phosphatase (38-126) U/L Troponin I <0.012 (0.000-0.034) ng/mL Total Protein (6.3-8.2) g/dL Albumin (3.5-5.0) g/dL Urine Color Urine Appearance (Clear) Urine pH (5.0-8.0) Ur Specific [place] (1.001-1.035) Urine Protein (Negative) Urine Glucose (UA) (Negative) Urine Ketones (Negative) Urine Blood (Negative) Urine Nitrite (Negative) Urine Bilirubin (Negative) Urine Urobilinogen (<2.0) mg/dL Ur Leukocyte Esterase (Negative) Urine RBC (0-5) /hpf Urine WBC (0-5) /hpf Ur Squamous Epith Cells (0-4) /hpf Urine Mucus (None) /hpf Influenza Type A (PCR) Not Detected (Not Detectd) Influenza Type B (PCR) Not Detected (Not Detectd) RSV (PCR) Not Detected (Not Detectd) SARS-CoV-2 (PCR) Not Detected (Not Detectd) 12/01/22 Range/Units 19:07 WBC (3.8-10.6) k/uL RBC (3.80-5.40) m/uL Hgb (11.4-16.0) gm/dL Hct (34.0-46.0) % MCV (80.0-100.0) fL MCH (25.0-35.0) pg MCHC (31.0-37.0) g/dL RDW (11.5-15.5) % Plt Count (150-450) k/uL MPV Neutrophils % % Lymphocytes % % Monocytes % % Eosinophils % % Basophils % % Neutrophils # (1.3-7.7) k/uL Lymphocytes # (1.0-4.8) k/uL Monocytes # (0-1.0) k/uL Eosinophils # (0-0.7) k/uL Basophils # (0-0.2) k/uL Hypochromasia PT (9.0-12.0) sec INR (<1.2) APTT (22.0-30.0) sec Sodium (137-145) mmol/L Potassium (3.5-5.1) mmol/L Chloride (98-107) mmol/L Carbon Dioxide (22-30) mmol/L Anion Gap mmol/L BUN (7-17) mg/dL Creatinine (0.52-1.04) mg/dL Est GFR (CKD-EPI)AfAm (>60 ml/min/1.73 sqM) Est GFR (CKD-EPI)NonAf (>60 ml/min/1.73 sqM) Glucose (74-99) mg/dL Plasma Lactic Acid Dao (0.7-2.0) mmol/L Calcium (8.4-10.2) mg/dL Magnesium (1.6-2.3) mg/dL Total Bilirubin (0.2-1.3) mg/dL AST (14-36) U/L ALT (4-34) U/L Alkaline Phosphatase (38-126) U/L Troponin I (0.000-0.034) ng/mL Total Protein (6.3-8.2) g/dL Albumin (3.5-5.0) g/dL Urine Color Light Yellow Urine Appearance Clear (Clear) Urine pH 5.5 (5.0-8.0) Ur Specific [place] 1.013 (1.001-1.035) Urine Protein Negative (Negative) Urine Glucose (UA) Negative (Negative) Urine Ketones 1+ H (Negative) Urine Blood Small H (Negative) Urine Nitrite Negative (Negative) Urine Bilirubin Negative (Negative) Urine Urobilinogen <2.0 (<2.0) mg/dL Ur Leukocyte Esterase Moderate H (Negative) Urine RBC 15 H (0-5) /hpf Urine WBC 7 H (0-5) /hpf Ur Squamous Epith Cells 1 (0-4) /hpf Urine Mucus Rare H (None) /hpf Influenza Type A (PCR) (Not Detectd) Influenza Type B (PCR) (Not Detectd) RSV (PCR) (Not Detectd) SARS-CoV-2 (PCR) (Not Detectd) - EKG Data -: EKG Interpreted by [place] EKG shows normal: sinus rhythm, axis (Normal), intervals (Normal), QRS complexes (Normal), ST-T waves (Normal) Rate: normal (Rate 67 bpm) Interpretation: normal EKG Disposition Clinical Impression: Closed head injury, Dizziness Disposition: HOME SELF-CARE Condition: Good Instructions (If sedation given, give patient instructions): Dizziness (ED) Is patient prescribed a controlled substance at d/c from ED?: No Referrals: Jackie Perez MD [Primary Care Provider] - 1-2 days Jay Hugo MD [STAFF PHYSICIAN] - 1-2 days
[2022-12-01 20:49] VITALS: BP 144/65; PULSE 77
== END 2022-12-01 20:53 | disposition home or self-care (01) ==
LOC: EC 17:20
DX: S09.90XA Unspecified injury of head, initial encounter (principal); R42 Dizziness and giddiness; M19.90 Unspecified osteoarthritis, unspecified site; Z91.040 Latex allergy status; Z88.2 Allergy status to sulfonamides; Z88.8 Allergy status to other drugs, medicaments and biological substances; Z88.6 Allergy status to analgesic agent; Z20.822 Contact with and (suspected) exposure to COVID-19; W01.0XXA Fall on same level from slipping, tripping and stumbling without subsequent striking against object, initial encounter
CPT/HCPCS: 36415; 70450; 80053; 81001; 83605; 83735; 84484; 85025; 85610; 85730; 87636; 93005; 99285

== ENCOUNTER → 2023-02-05 | Outpatient (CLI) | payer MEDICARE ==
--- NOTE | 2023-02-05 12:57 | US ---
EXAMINATION TYPE: US carotid duplex BILAT DATE OF EXAM: 02/05/2023 COMPARISON: NONE CLINICAL HISTORY: G45.1 CAROTID ARTERY SYNDROME (HEMISPHERIC). TECHNIQUE: Carotid duplex ultrasound examination. Indirect Doppler criteria was utilized. FINDINGS: EXAM MEASUREMENTS: RIGHT: Peak Systolic Velocity (PSV) cm/sec ----- Right CCA: 68.6 ----- Right ICA: 99.1 ----- Right ECA: 66.8 ICA/CCA ratio: 1.4 RIGHT: End Diastole cm/sec ----- Right CCA: 16.4 ----- Right ICA: 42.2 ----- Right ECA: 0.0 LEFT: Peak Systolic Velocity (PSV) cm/sec ----- Left CCA: 83.9 ----- Left ICA: 72.1 ----- Left ECA: 63.0 ICA/CCA ratio: 0.9 LEFT: End Diastole cm/sec ----- Left CCA: 20.9 ----- Left ICA: 20.9 ----- Left ECA: 6.4 VERTEBRALS (direction of flow): Right Vertebral: Antegrade Left Vertebral: Antegrade Rhythm: Normal SOLUTION ANALYST NOTES: Mild plaque visualized bilateral carotid bulbs. No significant velocity elevation s IMPRESSION: Mild bilateral atherosclerotic plaque within the carotid bulbs. No ultrasound evidence for clinically significant stenosis of the bilateral internal carotid arteries. Criteria for Assigning % of Stenosis / Diameter reduction (Estimation based on the indirect measurements of the internal carotid artery velocities (ICA PSV). 1. Normal (no stenosis)=ICA PSV < 125 cm/s: ratio < 2.0: ICA EDV<40 cm/s. 2. Less than 50% stenosis=ICA PSV < 125 cm/s: ratio < 2.0: ICA EDV<40 cm/s. 3. 50 to 69% stenosis=ICA PSV of 125 to 230 cm/s: ration 2.0 ? 4.0: ICA EDV 40-100 cm/s. 4. Greater than 70% stenosis to near occlusion= ICA PSV > 230 cm/s: ratio > 4.0: ICA EDV > 100 cm/s. 5. Near occlusion= ICA PSV velocities may be low or undetectable: variable ratio and ICA EDV. 6. Total occlusion=unable to detect flow.
== END | disposition home or self-care (01) ==
LOC: RADUSWWP 12:16
PROVIDERS: ATTEND Internal Medicine
DX: I65.23 Occlusion and stenosis of bilateral carotid arteries (principal)
CPT/HCPCS: 93880

== ENCOUNTER → 2023-05-04 | Outpatient (CLI) | payer MEDICARE ==
--- NOTE | 2023-05-04 15:59 | US ---
EXAMINATION TYPE: US kidneys/renal and bladder DATE OF EXAM: 05/04/2023 COMPARISON: CT abdomen pelvis 06/20/2013 CLINICAL INDICATION: Female, 83 years old with history of N23 UNSPECIFIED RENAL COLIC; EXAM MEASUREMENTS: Right Kidney: 9.4 x 4.9 x 5.0 cm Left Kidney: 9.4 x 4.9 x 4.6 cm Multiple grayscale ultrasound images of the kidneys and bladder were obtained. Right Kidney: multiple stones with shadowing noted, mild hydro seen Left Kidney: multiple stones with shadowing, lower pole cyst measures 1.9 x 1.9 x 2.3 cm. Bladder: wnl Mild right hydronephrosis. Multiple calculi identified within the right kidney with shadowing. No hyd ronephrosis involving left kidney. Lower pole cyst identified. Multiple calculi identified within the left kidney with shadowing. Urine bladder is anechoic and underdistended. IMPRESSION: 1. Mild right hydronephrosis. 2. Nonobstructive bilateral renal calculi.
--- NOTE | 2023-05-04 16:41 | XR ---
EXAMINATION TYPE: XR KUB DATE OF EXAM: 05/04/2023 COMPARISON: KUB 06/12/2015, CT abdomen and pelvis 06/20/2015, renal ultrasound 05/04/2023. HISTORY: Renal colic TECHNIQUE: Supine KUB view of the abdomen is obtained with 2 radiographs. FINDINGS: Small bowel demonstrates no evidence for dilatation or air fluid levels. Gas and fecal material is seen in non-distended colon. Multiple pelvic phlebolith redemonstrated. At least right renal calculi identified with largest measuring up to 1.4 cm in the mid to lower pole. At least 4 left renal calculi identified with largest measuring up to 1.8 cm. Redemonstration of sev eral calcification along the course of the right ureter which are favored to represent phleboliths se condary to lack of change from prior CT in 2014. Multiple pelvic phleboliths identified. IVC filter demonstrated. Surgical clips at the GE junction. The lung bases are clear. The osseous structures are intact. Postsurgical changes right total hip arthroplasty. Degenerative ch anges of the lumbar spine. IMPRESSION: 1. Multiple bilateral renal calculi. 2. Redemonstration of several calcification along the course of the right ureter which are favored to represent phleboliths secondary to lack of change from prior CT in 2014. This can be further evaluat ed with CT abdomen pelvis as clinically indicated.
== END | disposition home or self-care (01) ==
LOC: RADUSWWP 15:20
PROVIDERS: ATTEND Urology
DX: N13.2 Hydronephrosis with renal and ureteral calculous obstruction (principal); N23 Unspecified renal colic; N85.8 Other specified noninflammatory disorders of uterus
CPT/HCPCS: 74018; 76770

== ENCOUNTER → 2023-05-14 | Outpatient (CLI) | payer MEDICARE, OTHER ==
--- NOTE | 2023-05-16 23:10 | CT ---
EXAMINATION TYPE: CT abdomen pelvis wo con DATE OF EXAM: 05/14/2023 HISTORY: hydronephrosis and renal stones. CT DLP: 1014.5 mGycm. Automated Exposure Control for Dose Reduction was Utilized. TECHNIQUE: CT scan of the abdomen and pelvis is performed without oral or IV contrast. COMPARISON: Prior CT June 20, 2015 and recent ultrasound May 04, 2023 FINDINGS: Within the limitations of a non-contrast study, the following observations are made. LUNG BASES: Prominent calcification at level of mitral and aortic valves are redemonstrated. Coronary artery calcification is redemonstrated. LIVER/GB: Tiny dependent calcified gallstone axial image 38 new from prior. PANCREAS: No significant abnormality is seen. SPLEEN: No significant abnormality is seen. ADRENALS: Low dense thickening to left adrenal gland consistent with benign lipid rich hyperplasia is redemonstrated. KIDNEYS: Bilateral nephrolithiasis redemonstrated. At least 10 calculi bilaterally including several larger calculi. For reference there is 15 mm calculus upper pole right kidney coronal image 57 and a dominant 19 mm calculus in the left renal pelvis coronal image 52. Possible parapelvic cysts bilatera lly and/or mild to moderate right greater than left hydronephrosis. There are additional right ureter calculi and/or phleboliths redemonstrated. No intraluminal calculi and poorly distended bladder. BOWEL: Surgical changes from gastric bypass procedure redemonstrated. No suspicious small or large willam wel dilatation. GENITAL ORGANS: Suboptimal evaluation. Uterus may be surgically absent or atrophic in size LYMPH NODES: No greater than 1cm abdominal or pelvic lymph nodes are appreciated. OSSEOUS STRUCTURES: Metallic artifact from right hip arthroplasty now causes streak artifact limiting evaluation of pelvic structures. Multilevel vacuum disc phenomenon and disc space narrowing. OTHER: Mild to moderate calcified plaque in the ectatic abdominal aorta with more prominent calcified plaque extending within smaller branch vessels of the pelvis. IMPRESSION: Extensive bilateral nephrolithiasis redemonstrated. Mild to moderate bilateral hydronephr osis felt present and/or central parapelvic cysts. Possible right ureter calculi.
== END | disposition home or self-care (01) ==
LOC: RADCTMAIN 14:45
PROVIDERS: ATTEND Urology
DX: N13.2 Hydronephrosis with renal and ureteral calculous obstruction (principal)
CPT/HCPCS: 74176

== ENCOUNTER 2023-07-29 20:28 | Emergency (ER) | payer MEDICARE, OTHER ==
[2023-07-29 20:57] VITALS: BP 125/71; PULSE 90; RESP 18; TEMP 97.9
[2023-07-29] MEDS ORDERED: KETOROLAC 15 MG/ML 1 ML VIAL IVP STA (21:19)
[2023-07-29] MEDS ORDERED: SODIUM CHLORIDE 0.9% 500 ML 500 ML IV STA (21:19)
[2023-07-29 22:31] LABS: ALT 24 U/L (4-34); AST 43 U/L (14-36); African American GFR (CKD) 55 (>60 ml/min/1.73 sqM); Albumin 4.1 g/dL (3.5-5.0); Alkaline Phosphatase 95 U/L (38-126); Anion Gap 11 mmol/L; Blood Urea Nitrogen 34 mg/dL (7-17); Calcium 9.5 mg/dL (8.4-10.2); Carbon Dioxide 24 mmol/L (22-30); Chloride 101 mmol/L (98-107); Glucose 103 mg/dL (74-99); Lipase 249 U/L (23-300); Non-African American GFR(CKD) 47 (>60 ml/min/1.73 sqM); Potassium 4.4 mmol/L (3.5-5.1); Sodium 136 mmol/L (137-145); Total Bilirubin 0.6 mg/dL (0.2-1.3); Total Protein 7.7 g/dL (6.3-8.2)
[2023-07-29 22:40] LABS: Basophils % (A) 0 %; Eosinophils # (A) 0.2 k/uL (0-0.7); Eosinophils % (A) 3 %; HCT 43.7 % (34.0-46.0); HGB 13.7 gm/dL (11.4-16.0); Lymphocytes # (A) 1.4 k/uL (1.0-4.8); Lymphocytes % (A) 17 %; MCH 30.6 pg (25.0-35.0); MCHC 31.4 g/dL (31.0-37.0); MCV 97.2 fL (80.0-100.0); Mean Platelet Volume 9.8; Monocytes # (A) 0.7 k/uL (0-1.0); Monocytes % (A) 8 %; Neutrophils # (A) 5.8 k/uL (1.3-7.7); Neutrophils % (A) 70 %; Platelet Count 223 k/uL (150-450); RDW 14.3 % (11.5-15.5); WBC 8.2 k/uL (3.8-10.6)
--- NOTE | 2023-07-29 23:02 | CT ---
EXAM: CT Abdomen and Pelvis Without Intravenous Contrast CLINICAL HISTORY: ITS.REASON CT Reason: abdominal pain TECHNIQUE: Axial computed tomography images of the abdomen and pelvis without intravenous contrast. CTDI is 22.2 mGy and DLP is 1274 mGy-cm. This CT exam was performed using one or more of the following dose reduction techniques: automated exposure control, adjustment of the mA and/or kV according to patient size, and/or use of iterative reconstruction technique. COMPARISON: No relevant prior studies available. FINDINGS: Lung bases: Unremarkable. No mass. No consolidation. ABDOMEN: Liver: Unremarkable. Gallbladder and bile ducts: Unremarkable. No calcified stones. No ductal dilation. Pancreas: Unremarkable. No ductal dilation. Spleen: Unremarkable. No splenomegaly. Adrenals: Unremarkable. No mass. Kidneys and ureters: 3 sequentially obstructing calculi and LEFT to see order measuring 5 mm, 6 mm, and 5 mm. See coronal image 62. Mild hydronephrosis of the LEFT kidney. Multiple bilateral nonobstructive renal calculi. Stomach and bowel: Diverticulosis, without acute diverticulitis. No small bowel obstruction. No free intraperitoneal air. PELVIS: Appendix: Normal appendix. Bladder: Unremarkable. No stones. Reproductive: Unremarkable as visualized. ABDOMEN and PELVIS: Intraperitoneal space: Unremarkable. No free air. No significant fluid collection. Bones/joints: Evaluation of the RIGHT UPJ is limited due to streak artifact from the patient's RIGHT hip arthroplasty. Degenerative changes of the spine. No acute fracture. No dislocation. Soft tissues: Unremarkable. Vasculature: Atherosclerotic changes of the aorta. IVC filter. No abdominal aortic aneurysm. Lymph nodes: Unremarkable. No enlarged lymph nodes. IMPRESSION: 3 sequentially obstructing calculi and LEFT to see order measuring 5 mm, 6 mm, and 5 mm. See coronal image 62. Mild hydronephrosis of the LEFT kidney. Multiple bilateral nonobstructive renal calculi.
[2023-07-29 23:42] LABS: Appearance,Urine Clear (Clear); Color,Urine Orange
[2023-07-29 23:45] LABS: Bacteria,Urine Rare /hpf; Mucus,Urine Rare /hpf; RBC,Urine 5 /hpf (0-5); Squamous Epithelial Cell,Urine 1 /hpf (0-4); WBC,Urine 5 /hpf (0-5)
--- NOTE | 2023-07-30 00:25 | ED ---
Female Urogenital HPI - General Chief complaint: Urogenital Stated complaint: Kidney stones Time Seen by Provider: 07/29/23 21:05 Source: patient Mode of arrival: wheelchair Limitations: no limitations - History of Present Illness Initial comments: 83-year-old female past history of nephrolithiasis who presents emergency department reporting left-sided flank pain. States that the pain started last night and progressed throughout the day today. It began up in her left flank and now radiates to her left groin. States the pain feels similar when she has passed previous kidney stones. She has never required surgery. States that she is supposed to be having upcoming surgery to remove some kidney stones that are within her kidneys and are quite large in size. She follows with Dr. Villegas. The patient has had increased frequency of urination today. Denies hematuria or dysuria. Denies diarrhea, constipation, black or bloody stools. No fevers. No other alleviating, precipitating or modifying factors - Related Data Home Medications Medication Instructions Recorded Confirmed Multivitamins, Thera [Theragran] 1 tab PO DAILY 11/11/15 12/01/22 Acetaminophen [Tylenol Extra 1,000 mg PO HS 01/22/22 12/01/22 Strength] Sleep Aid 2 tab PO HS 12/01/22 12/01/22 Vit C/E/Zn/Coppr/Lutein/Zeaxan 1 cap PO DAILY 12/01/22 12/01/22 [Preservision Areds 2 Softgel] Previous Rx's Medication Instructions Recorded Ketorolac [Toradol] 10 mg PO Q8HR #15 tab 07/30/23 Allergies Allergy/AdvReac Type Severity Reaction Status Date / Time latex Allergy Severe Swelling Verified 07/29/23 20:57 of Lips, Nodules on skin. povidone-iodine Allergy Unknown Rash/Hives/ Verified 07/29/23 20:57 [From Betadine] itching soap [From Betadine] Allergy Unknown Rash/Hives Verified 07/29/23 20:57 hydrocodone [From [place]] Allergy Itching Verified 07/29/23 20:57 sulfamethoxazole Allergy Rash/Hives Verified 07/29/23 20:57 [From Bactrim] trimethoprim [From Bactrim] Allergy Rash/Hives Verified 07/29/23 20:57 NSAIDS (Non-Steroidal AdvReac Unknown HX OF Verified 07/29/23 20:57 Anti-Inflamma STOMACH ULCER Review of Systems ROS Statement: Those systems with pertinent positive or pertinent negative responses have been documented in the HPI. ROS Other: All systems not noted in ROS Statement are negative. Past Medical History Past Medical History: Osteoarthritis (OA) Additional Past Medical History / Comment(s): HX OF KIDNEY STONES, PEPTIC ULCER , jose m cataracts, COVID VACCINE MODERNA 2ND DOSE 04/08/21, BOOSTER DOSE 10/10/21. History of Any Multi-Drug Resistant Organisms: None Reported Past Surgical History: Bariatric Surgery, Hysterectomy, Joint Replacement, Orthopedic Surgery, Tonsillectomy Additional Past Surgical History / Comment(s): IVC FILTER RIGHT GROIN, GASTRIC BYPASS (NOV 2009) AND 9 DAYS LATER SURGERY FOR BOWEL OBSTRUCTION., JOSE M KNEE REPLACEMENT, CYST LEFT WRIST. RIGHT ROTATOR CUFF REPAIR, rt hip replacement Past Anesthesia/Blood Transfusion Reactions: Motion Sickness Past Psychological History: No Psychological Hx Reported Smoking Status: Never smoker Past Alcohol Use History: None Reported Past Drug Use History: None Reported - Past Family History Mother Family Medical History: Cancer Additional Family Medical History / Comment(s): OVARIAN Sister(s) Family Medical History: Cancer Additional Family Medical History / Comment(s): breast Brother(s) Family Medical History: Cancer Additional Family Medical History / Comment(s): BONE CANCER General Exam Limitations: no limitations General appearance: alert, in no apparent distress Head exam: Present: atraumatic, normocephalic, normal inspection Eye exam: Present: normal appearance, PERRL, EOMI. Absent: scleral icterus, conjunctival injection, periorbital swelling ENT exam: Present: normal exam, mucous membranes moist Neck exam: Present: normal inspection. Absent: tenderness, meningismus, lymphadenopathy Respiratory exam: Present: normal lung sounds bilaterally. Absent: respiratory distress, wheezes, rales, rhonchi, stridor Cardiovascular Exam: Present: regular rate, normal rhythm, normal heart sounds. Absent: systolic murmur, diastolic murmur, rubs, gallop, clicks GI/Abdominal exam: Present: soft, normal bowel sounds. Absent: distended, tend erness, guarding, rebound, rigid Extremities exam: Present: normal inspection, full ROM, normal capillary refill. Absent: tenderness, pedal edema, joint swelling, calf tenderness Back exam: Present: normal inspection Neurological exam: Present: alert, oriented X3, CN II-XII intact Psychiatric exam: Present: normal affect, normal mood Skin exam: Present: warm, dry, intact, normal color. Absent: rash Course Vital Signs 07/29/23 20:52 Temperature 97.9 F Pulse Rate 90 Respiratory 18 Rate Blood Pressure 125/71 O2 Sat by Pulse 96 Oximetry Medical Decision Making - Medical Decision Making Was pt. sent in by a medical professional or institution (, PA, EPITAXIAL REACTOR OPERATOR, urgent care, hospital, or care home...) When possible be specific @ -No Did you speak to anyone other than the patient for history (EMS, parent, family, police, friend...)? What history was obtained from this source @ -No Did you review nursing and triage notes (agree or disagree)? Why? @ -I reviewed and agree with nursing and triage notes Were old charts reviewed (outside hosp., previous admission, EMS record, old EKG, old radiological studies, urgent care reports/EKG's, care home records)? Report findings @ -No old charts were reviewed Differential Diagnosis (chest pain, altered mental status, abdominal pain women, abdominal pain men, vaginal bleeding, weakness, fever, dyspnea, syncope, headache, dizziness, GI bleed, back pain, seizure, CVA, palpatations, mental health, musculoskeletal)? @ -Differential Abdominal Pain Women: Appendicitis, Cholecystitis, diverticulosis, ischemic bowel, pancreatitis, hepatitis, UTI, gastroenteritis, AAA, incarcerated hernia, bowel obstruction, constipation, inflammatory bowel, hepatitis, peptic ulcer disease, splenic infarction, perforated viscus, vulvitis, ovarian torsion, PID, kidney stone, placenta abruption, this is not meant to be an all-inclusive list EKG interpreted by me (3pts min.). @ -Not completed X-rays interpreted by me (1pt min.). @ -None done CT interpreted by me (1pt min.). @ -Yes and demonstrates multiple renal nephrolithiasis. Also demonstrates ureterolithiasis on the left U/S interpreted by me (1pt. min.). @ -None done What testing was considered but not performed or refused? (CT, X-rays, U/S, labs)? Why? @ -None What meds were considered but not given or refused? Why? @ -None Did you discuss the management of the patient with other professionals (professionals i.e. , PA, EPITAXIAL REACTOR OPERATOR, lab, RT, psych nurse, social professionals, care specialist, teacher, freedom of information officer, director case)? Give summary @ -I discussed the patient's case with Dr. Allred. Requesting that the patient have a KUB performed and strain all her urine. She is to call the office in the morning to make an appointment Was smoking cessation discussed for >3mins.? @ -No Was critical care preformed (if so, how long)? @ -No Were there social determinants of health that impacted care today? How? (Brittney elessness, low income, unemployed, alcoholism, drug addiction, transportation, low edu. Level, literacy, decrease access to med. care, [place] [facility], rehab)? @ -No Was there de-escalation of care discussed even if they declined (Discuss DNR or withdrawal of care, Hospice)? DNR status @ -No What co-morbidities impacted this encounter? (DM, HTN, Smoking, COPD, CAD, Cancer, CVA, ARF, Chemo, Hep., AIDS, mental health diagnosis, sleep apnea, morbid obesity)? @ -Nephrolithiasis Was patient admitted / discharged? Hospital course, mention meds given and route, prescriptions, significant lab abnormalities, going to OR and other pertinent info. @ -Upon arrival patient was placed into room 6. A thorough history and physical exam was performed. IV access is established. Laboratory studies are conducted. Patient does provide a urine sample. She is given 15 mg of Toradol for pain control and sent for a CT of her abdomen and pelvis without contrast. Creatinine is mildly bumped. Urinalysis demonstrates rare bacteria. CT demonstrates multiple ureteral stones on the left with mild [place]. She is reevaluated and reports that her pain is almost completely resolved. I did call and speak with Dr. Allred who is on-call for urology. States that if the patient's pain is under control without signs of infection and severe [place] that she may be discharged home. She will be placed on Toradol for pain control. She may take Flomax for which she does have a prescription at home. She is to call the office in the morning to make an appointment with the urologists. Ret urn for any new or worsening symptoms to include fever or inability to urinate. Patient was agreeable to this plan and she was discharged in stable condition Undiagnosed new problem with uncertain prognosis? @ -No Drug Therapy requiring intensive monitoring for toxicity (Heparin, Nitro, Insulin, Cardizem)? @ -No Were any procedures done? @ -No Diagnosis/symptom? @ -Acute left flank pain, acute ureteralithiasis with mild hydronephrosis Acute, or Chronic, or Acute on Chronic? @ -Acute Uncomplicated (without systemic symptoms) or Complicated (systemic symptoms)? @ -complicated Side effects of treatment? @ -No Exacerbation, Progression, or Severe Exacerbation? @ -No Poses a threat to life or bodily function? How? (Chest pain, [place], [place], pneumonia, PE, COPD, DKA, ARF, appy, cholecystitis, CVA, Diverticulitis, Homicidal, Suicidal, threat to staff... and all critical care pts) @ -No - Lab Data Result diagrams: 07/29/23 21:45 07/29/23 21:45 Lab Results 07/29/23 07/29/23 07/29/23 Range/Units 21:45 21:45 23:29 WBC 8.2 (3.8-10.6) k/uL RBC 4.50 (3.80-5.40) m/uL Hgb 13.7 (11.4-16.0) gm/dL Hct 43.7 (34.0-46.0) % MCV 97.2 (80.0-100.0) fL MCH 30.6 (25.0-35.0) pg MCHC 31.4 (31.0-37.0) g/dL RDW 14.3 (11.5-15.5) % Plt Count 223 (150-450) k/uL MPV 9.8 Neutrophils % 70 % Lymphocytes % 17 % Monocytes % 8 % Eosinophils % 3 % Basophils % 0 % Neutrophils # 5.8 (1.3-7.7) k/uL Lymphocytes # 1.4 (1.0-4.8) k/uL Monocytes # 0.7 (0-1.0) k/uL Eosinophils # 0.2 (0-0.7) k/uL Basophils # 0.0 (0-0.2) k/uL Sodium 136 L (137-145) mmol/L Potassium 4.4 (3.5-5.1) mmol/L Chloride 101 (98-107) mmol/L Carbon Dioxide 24 (22-30) mmol/L Anion Gap 11 mmol/L BUN 34 H (7-17) mg/dL Creatinine 1.09 H (0.52-1.04) mg/dL Est GFR (CKD-EPI)AfAm 55 (>60 ml/min/1.73 sqM) Est GFR (CKD-EPI)NonAf 47 (>60 ml/min/1.73 sqM) Glucose 103 H (74-99) mg/dL Calcium 9.5 (8.4-10.2) mg/dL Total Bilirubin 0.6 (0.2-1.3) mg/dL AST 43 H (14-36) U/L ALT 24 (4-34) U/L Alkaline Phosphatase 95 (38-126) U/L Total Protein 7.7 (6.3-8.2) g/dL Albumin 4.1 (3.5-5.0) g/dL Lipase 249 (23-300) U/L Urine Color [place] Urine Appearance Clear (Clear) Urine RBC 5 (0-5) /hpf Urine WBC 5 (0-5) /hpf Ur Squamous Epith Cells 1 (0-4) /hpf Urine Bacteria Rare H (None) /hpf Urine Mucus Rare H (None) /hpf Disposition Clinical Impression: Ureteral stone with hydronephrosis, Flank pain Disposition: HOME SELF-CARE Condition: Stable Instructions (If sedation given, give patient instructions): Kidney Stones (ED) Additional Instructions: Please call the urology office tomorrow to make an appointment. Strain all of your urine. Take the Flomax and Toradol as directed. Return should you have uncontrolled pain or develop a fever Prescriptions: Ketorolac [Toradol] 10 mg PO Q8HR #15 tab Is patient prescribed a controlled substance at d/c from ED?: No Referrals: Jackie Perez MD [Primary Care Provider] - 1-2 days Zafar Villegas MD [STAFF PHYSICIAN] - 1-2 days Time of Disposition: 00:25
--- NOTE | 2023-07-30 00:28 | XR ---
EXAM: XR Abdomen, 1 View CLINICAL HISTORY: ITS.REASON XR Reason: urologist request for management TECHNIQUE: Frontal supine view of the abdomen/pelvis. COMPARISON: No relevant prior studies available. FINDINGS: Gastrointestinal tract: Nonobstructed bowel gas pattern. Organs: Multiple, large bilateral nonobstructing renal calculi. Bones/joints: RIGHT hip arthroplasty. Vasculature: IVC filter. IMPRESSION: 1. Multiple, large bilateral nonobstructing renal calculi. 2. Nonobstructed bowel gas pattern.
== END 2023-07-30 00:44 | disposition home or self-care (01) ==
LOC: EC 20:28
DX: N13.2 Hydronephrosis with renal and ureteral calculous obstruction (principal); Z88.1 Allergy status to other antibiotic agents; Z88.2 Allergy status to sulfonamides; Z88.5 Allergy status to narcotic agent; Z88.6 Allergy status to analgesic agent; Z91.040 Latex allergy status; Z88.8 Allergy status to other drugs, medicaments and biological substances; Z91.09 Other allergy status, other than to drugs and biological substances
CPT/HCPCS: 36415; 80053; 83690; 85025; 81001; 74018; 74176; 99285; 96374; J1885

== ENCOUNTER → 2023-08-05 | Day surgery (SDC) | payer MEDICARE, OTHER ==
[2023-08-04 14:01] VITALS: BMI 34.3
--- NOTE | 2023-08-04 21:59 | P.GSHP ---
History of Present Illness H&P Date: 08/04/23 Chief Complaint: Left renal calculi The patient is an 83-year-old white female with a history of urolithiasis. She presented with right flank pain early this summer, which resolved after she passed a calculus. CT scan showed bilateral large renal calculi. She recently presented with left flank pain and was found to have left hydronephrosis due to 3 ureteral calculi. She has been advised to undergo bilateral percutaneous nephrolithotomies, starting with the left side due to the fact that she has a large renal pelvic calculus on that side. She has passed the left ureteral calculi. - Constitutional Constitutional: Denies chills, Denies fever - Genitourinary (Female) Genitourinary: Reports flank pain, Reports hematuria, Reports kidney stones Past Medical History Past Medical History: GERD/Reflux, Hyperlipidemia, Osteoarthritis (OA) Additional Past Medical History / Comment(s): Current kidney stones. 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 History of Any Multi-Drug Resistant Organisms: None Reported Past Surgical History: Bariatric Surgery, Hysterectomy, Joint Replacement, Orthopedic Surgery, Tonsillectomy Additional Past Surgical History / Comment(s): IVC FILTER RIGHT GROIN, GASTRIC BYPASS (NOV 2009) AND 9 DAYS LATER SURGERY FOR BOWEL OBSTRUCTION, BILATERAL KNEE REPLACEMENTS, CYST REOVED FROM LEFT WRIST, RIGHT ROTATOR CUFF REPAIR, right hip replacement. Past Anesthesia/Blood Transfusion Reactions: No Reported Reaction, Motion Sickness Past Psychological History: Anxiety Additional Psychological History / Comment(s): Some anxiety when son was sick and and when lost her 06/25/23. Smoking Status: Never smoker Past Alcohol Use History: None Reported Past Drug Use History: None Reported - Past Family History Mother Family Medical History: Cancer Additional Family Medical History / Comment(s): OVARIAN Cancer. Sister(s) Family Medical History: Cancer Additional Family Medical History / Comment(s): 2 sisters had cancer. Brother(s) Family Medical History: Cancer Additional Family Medical History / Comment(s): BONE CANCER. Medications and Allergies Home Medications Medication Instructions Recorded Confirmed Type Multivitamins, Thera [Theragran] 2 tab PO DAILY 11/11/15 08/04/23 History Vit C/E/Zn/Coppr/Lutein/Zeaxan 2 cap PO BID 12/01/22 08/04/23 History [Preservision Areds 2 Softgel] [place]/Mag/Vit D/[place] 1 tab PO DAILY 08/04/23 08/04/23 History Ketorolac [Toradol] 10 mg PO Q8HR PRN 08/04/23 08/04/23 History Melatonin (Unknown Dose) 2 tab PO HS 08/04/23 08/04/23 History [place]. 1 tab PO DAILY 08/04/23 08/04/23 History Rosuvastatin Calcium 5 mg PO QAM 08/04/23 08/04/23 History traMADol HCL 50 mg PO Q6H PRN 08/04/23 08/04/23 History Allergies Allergy/AdvReac Type Severity Reaction Status Date / Time latex Allergy Severe Swelling Verified 08/04/23 13:35 of Lips, Nodules on skin. povidone-iodine Allergy Unknown Rash/Hives/ Verified 08/04/23 13:35 [From Betadine] itching soap [From Betadine] Allergy Unknown Rash/Hives Verified 08/04/23 13:35 hydrocodone [From [place]] Allergy Itching Verified 08/04/23 13:35 sulfamethoxazole Allergy Rash/Hives Verified 08/04/23 13:35 [From Bactrim] trimethoprim [From Bactrim] Allergy Rash/Hives Verified 08/04/23 13:35 NSAIDS (Non-Steroidal AdvReac Unknown HX OF Verified 08/04/23 13:35 Anti-Inflamma STOMACH ULCER Surgical - Exam - General well developed, well nourished, no distress - Respiratory normal respiratory effort - Psychiatric oriented to time, oriented to person, oriented to place, speech is normal, memory intact Results - Imaging CT scan - abdomen: report reviewed, image reviewed Assessment and Plan (1) Calculus of kidney Status: Acute Code(s): N20.0 - CALCULUS OF KIDNEY SNOMED Code(s): 61798540 Plan: The patient will undergo insertion of a left percutaneous nephrostomy tube. This will serve to prevent future episodes of left renal colic and expedite the scheduling of a left percutaneous nephrolithotomy. The rationale for this has been reviewed in detail with the patient.
--- NOTE | 2023-08-05 10:06 | US ---
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 Patient states she passed multiple stones last night. EXAM MEASUREMENTS: Right Kidney: 10.4 x 4.8 x 5.1 cm Left Kidney: 9.8 x 4.5 x 4.2 cm Right Kidney: No hydronephrosis. Multiple echogenic foci seen, largest upper pole = 1.6 cm Left Kidney: Multiple echogenic foci seen. Largest lower pole = 1.2 cm. Lower pole cystic appearing lesion = 1.8 x 1.7 x 1.6 cm Bladder: distended, anechoic Bilateral Jets not seen IMPRESSION: 1. Interval resolution of left-sided hydronephrosis. Nephrostomy tube insertion deferred. 2. Bilateral nephrolithiasis.
[2023-08-05 15:58] VITALS: BP 182/77; PULSE 77; RESP 16; TEMP 97.6
== END ==
LOC: CATHCVL 08:17
PROVIDERS: ATTEND Radiology Diagnostic Radiology
DX: N20.0 Calculus of kidney (principal); E78.5 Hyperlipidemia, unspecified; K21.9 Gastro-esophageal reflux disease without esophagitis; M19.90 Unspecified osteoarthritis, unspecified site; Z87.442 Personal history of urinary calculi; Z88.1 Allergy status to other antibiotic agents; Z88.2 Allergy status to sulfonamides; Z88.5 Allergy status to narcotic agent; Z88.6 Allergy status to analgesic agent; Z91.040 Latex allergy status; Z98.84 Bariatric surgery status; Z79.899 Other long term (current) drug therapy; Z88.8 Allergy status to other drugs, medicaments and biological substances
CPT/HCPCS: 76770

== ENCOUNTER → 2023-08-26 | Outpatient (CLI) | payer MEDICARE, OTHER ==
[2023-08-26 16:54] LABS: ALT 32 U/L (8-44); AST 42 U/L (13-35); Blood Urea Nitrogen 37.7 mg/dL (9.0-27.0); Calcium 9.7 mg/dL (8.7-10.3); Carbon Dioxide 24.9 mmol/L (21.6-31.8); Chloride 103 mmol/L (96-109); Chol/HDL Ratio 2.52 Ratio; Glucose 95 mg/dL (70-110); LDL Cholesterol,Calculated 63.3 mg/dL (0.0-131.0); Sodium 140 mmol/L (135-145); VLDL Calculation 16.44 mg/dL (5.00-40.00)
[2023-08-26 17:04] LABS: HCT 40.7 % (37.2-46.3); HGB 12.6 d/dL (12.0-15.0); MCH 30.6 pg (27.0-32.0); MCV 98.8 FL (80.0-97.0); Mean Platelet Volume 12.5 FL (9.5-12.2); NRBC Per 100 WBC 0 X 10*3/uL (0.00-0.01); Platelet Count 208 X 10*3/uL (140-440); RBC 4.12 X 10*6/uL (4.10-5.20); RDW 15.9 % (11.5-14.5); WBC 6.67 X 10*3/uL (4.50-10.00)
== END | disposition home or self-care (01) ==
LOC: LABWHC1 09:23
PROVIDERS: ATTEND Internal Medicine Cardiovascular Disease
DX: E78.2 Mixed hyperlipidemia (principal)
CPT/HCPCS: 36415; 80048; 80061; 84443; 84450; 84460; 85027

== ENCOUNTER → 2023-09-20 | Outpatient (CLI) | payer MEDICARE, OTHER ==
[2023-09-20 16:09] LABS: ALT 26 U/L (8-44); AST 32 U/L (13-35); Albumin 4.2 d/dL (3.8-4.9); Alkaline Phosphatase 91 U/L (41-126); BUN/Creat Ratio 29.33 Ratio (12.00-20.00); Blood Urea Nitrogen 26.4 mg/dL (9.0-27.0); Calcium 9.6 mg/dL (8.7-10.3); Carbon Dioxide 24.7 mmol/L (21.6-31.8); Chloride 103 mmol/L (96-109); Glucose 97 mg/dL (70-110); Potassium 4.5 mmol/L (3.5-5.5); Sodium 140 mmol/L (135-145); Total Bilirubin 0.5 mg/dL (0.3-1.2); Total Protein 7.2 d/dL (6.2-8.2)
[2023-09-20 16:26] LABS: HCT 42.9 % (37.2-46.3); HGB 13.5 d/dL (12.0-15.0); MCH 30.9 pg (27.0-32.0); MCHC 31.5 d/dL (32.0-37.0); MCV 98.2 FL (80.0-97.0); Mean Platelet Volume 12.3 FL (9.5-12.2); NRBC Per 100 WBC 0 X 10*3/uL (0.00-0.01); Platelet Count 224 X 10*3/uL (140-440); RBC 4.37 X 10*6/uL (4.10-5.20); RDW 15.9 % (11.5-14.5); WBC 6.85 X 10*3/uL (4.50-10.00)
[2023-09-20 16:32] LABS: Appearance,Urine Clear (Clear); Bilirubin,Urine Negative (Negative); Blood,Urine Negative (Negative); Color,Urine Yellow (Yellow); Ketones,Urine Negative (Negative); Nitrite,Urine Negative (Negative); Specific Gravity,Urine 1.016 (1.001-1.030); Urobilinogen,Urine 0.2 E.U./DL
[2023-09-20 16:39] LABS: Bacteria,Urine None Seen (None Seen)
== END | disposition home or self-care (01) ==
LOC: LABWHC1 11:06
PROVIDERS: ATTEND Urology
DX: Z01.812 Encounter for preprocedural laboratory examination (principal); N20.0 Calculus of kidney; R31.29 Other microscopic hematuria
CPT/HCPCS: 36415; 80053; 81001; 85027; 86850; 86900; 86901; 87086

== ENCOUNTER 2023-09-27 10:15 | Observation (INO) | payer MEDICARE, OTHER ==
[2023-09-22 15:52] VITALS: BMI 33.1
--- NOTE | 2023-09-26 08:45 | P.GSHP ---
History of Present Illness H&P Date: 09/26/23 83 yo female with a history of stones. She has greater than 3 cm f stone in the left renal pelvis, upper and lower poles. She comes for a pcnl left. the alternatives have been discussed. the risks have been discussed. - Constitutional Constitutional: Denies chills, Denies fever - EENT Eyes: denies blurred vision, denies pain Ears, nose, mouth and throat: Denies headache, Denies sore throat - Cardiovascular Cardiovascular: Denies chest pain, Denies shortness of breath - Respiratory Respiratory: Denies cough, Denies 7 - Gastrointestinal Gastrointestinal: Denies abdominal pain, Denies diarrhea, Denies nausea, Denies vomiting - Genitourinary (Female) Genitourinary: Denies dysuria, Denies hematuria - Genitourinary (Male) Genitourinary: Denies dysuria, Denies hematuria - Musculoskeletal Musculoskeletal: Denies myalgias - Integumentary Integumentary: Denies pruritus, Denies rash - Neurological Neurological: Denies numbness, Denies weakness - Psychiatric Psychiatric: Denies anxiety, Denies depression - Endocrine Endocrine: Denies fatigue, Denies weight change Past Medical History Past Medical History: GERD/Reflux, Hyperlipidemia, Osteoarthritis (OA) Additional Past Medical History / Comment(s): Current kidney stones. HX OF KIDNEY STONES, hx PEPTIC ULCER-resolved,reflux resolved, "bone on bone in neck". History of Any Multi-Drug Resistant Organisms: None Reported Past Surgical History: Bariatric Surgery, Hysterectomy, Joint Replacement, Orthopedic Surgery, Tonsillectomy Additional Past Surgical History / Comment(s): IVC FILTER RIGHT GROIN, GASTRIC BYPASS (NOV 2009) AND 9 DAYS LATER SURGERY FOR BOWEL OBSTRUCTION, BILATERAL KNEE REPLACEMENTS, CYST REOVED FROM LEFT WRIST, RIGHT ROTATOR CUFF REPAIR, right hip replacement. Past Anesthesia/Blood Transfusion Reactions: No Reported Reaction, Motion Sickness Additional Past Anesthesia/Blood Transfusion Reaction / Comment(s): no problems with prior blood transfusion Smoking Status: Never smoker - Past Family History Son(s) Family Medical History: Cancer Mother Family Medical History: Cancer Additional Family Medical History / Comment(s): OVARIAN Cancer. Sister(s) Family Medical History: Cancer Additional Family Medical History / Comment(s): 2 sisters had cancer.(breast,lung) Brother(s) Family Medical History: Cancer Additional Family Medical History / Comment(s): BONE CANCER. Medications and Allergies Home Medications Medication Instructions Recorded Confirmed Type Multivitamins, Thera [Theragran] 2 tab PO DAILY 11/11/15 09/22/23 History Vit C/E/Zn/Coppr/Lutein/Zeaxan 2 cap PO BID 12/01/22 09/22/23 History [Preservision Areds 2 Softgel] Rosuvastatin Calcium 5 mg PO DAILY 08/04/23 09/22/23 History traMADol HCL 50 mg PO BID PRN 08/04/23 09/22/23 History Metoprolol Succinate [Metoprolol 25 mg PO HS 09/22/23 09/22/23 History Succinate ER] Omeprazole [PriLOSEC] 20 mg PO AC-BRKFST PRN 09/22/23 09/22/23 History diphenhydrAMINE [Benadryl] 25 mg PO HS PRN 09/22/23 09/22/23 History Allergies Allergy/AdvReac Type Severity Reaction Status Date / Time latex Allergy Severe Swelling Verified 09/22/23 14:50 of Lips povidone-iodine Allergy Unknown Rash/Hives/ Verified 09/22/23 14:50 [From Betadine] itching soap [From Betadine] Allergy Unknown Rash/Hives Verified 09/22/23 14:50 hydrocodone [From [place]] Allergy Itching Verified 09/22/23 14:50 sulfamethoxazole Allergy Rash/Hives Verified 09/22/23 14:50 [From Bactrim] trimethoprim [From Bactrim] Allergy Rash/Hives Verified 09/22/23 14:50 NSAIDS (Non-Steroidal AdvReac Unknown HX OF Verified 09/22/23 14:50 Anti-Inflamma STOMACH ULCER Surgical - Exam - General well developed, well nourished, no distress - Eyes normal ocular movement, no icteric - ENT no hearing loss, no congestion - Neck no masses, trachea midline - Respiratory normal respiratory effort, clear to auscultation - Abdomen Abdomen: soft, non tender, no guarding, no rigid, no rebound - Integumentary no rash, no abnormal pigmentation - Neurologic no disoriented, no combative - Psychiatric oriented to time, oriented to person, oriented to place, speech is normal, memory intact Results - Imaging CT scan - abdomen: report reviewed, image reviewed CT scan - pelvis: report reviewed, image reviewed Assessment and Plan Assessment: Impression: left clara stones, large, > 3cm Plan: Pcnl left.
[~2023-09-27 10:15] MED LIST changes: +AMPICILLIN 1,000 MG in SODIUM CHLORIDE 0.9% 50 ML IVPB PRN; -DEXAMETHASONE SOD PHOSPHATE 10 MG/ML 1 ML VIAL ONE; +DEXAMETHASONE SOD PHOSPHATE 4 MG/ML 1 ML VIAL IV ONE; +GENTAMICIN 120 MG in SODIUM CHLORIDE 0.9% 100 ML IVPB PRN; +HYDROmorphone 0.5 MG/0.5 ML SYRINGE IVP PRN; -IV FLUID CONTINUATION 1,000 ML IV ONE; -LACTATED RINGERS 1,000 ML IV SCH; -LIDOCAINE 1% (10MG/ML) FOR IV START INTRADERMA PRN; -MIDAZOLAM 2 MG/2 ML VIAL ONE; +ONDANSETRON 4 MG/2 ML VIAL IVP ONE; -ROPIVACAINE 5MG/ML 20ML VIAL ONE; -fentaNYL (PF) 50 MCG/ML 2 ML AMP ONE
--- NOTE | 2023-09-27 10:47 | XR ---
EXAMINATION TYPE: XR KUB DATE OF EXAM: 09/27/2023 COMPARISON: 07/30/2023 INDICATION: Left-sided renal stone TECHNIQUE: Single view abdomen frontal projection FINDINGS: There is a normal bowel gas pattern. Psoas margins are normal. No organomegaly is present. Filters within the midline. There are multiple bilateral renal stones. The largest on the left may be near the renal pelvis measu ring 2.0 x 2 point were centimeters. There are multiple calcifications along the right psoas muscle c ould be ureteral stones. Probable phleboliths within the pelvis. Distal left ureteral stone is not ex cluded IMPRESSION: 1. Multiple bilateral renal stones. 2. Right ureteral stones may be present. 3. Distal left ureteral stone is not excluded.
[2023-09-27] MEDS: LACTATED RINGERS 1,000 ML IV SCH (11:14)
[2023-09-27] MEDS ORDERED: ONDANSETRON 4 MG/2 ML VIAL IVP ONE ×2 (11:15→15:35)
[2023-09-27] MEDS ORDERED: DEXAMETHASONE SOD PHOSPHATE 4 MG/ML 1 ML VIAL IVP ONE (11:15)
[2023-09-27] MEDS ORDERED: GLYCOPYRROLATE 0.2 MG/ML 2 ML VIAL ONE (13:00)
[2023-09-27] MEDS ORDERED: LIDOCAINE 1% INJ 10MG/ML (20 ML MDV) ONE (13:00)
[2023-09-27] MEDS ORDERED: PROPOFOL 10 MG/ML 20 ML VIAL IV ONE (13:00)
[2023-09-27] MEDS ORDERED: SUCCINYLCHOLINE CHLORIDE 200 MG/10 ML VIAL IV ONE (13:00)
[2023-09-27] MEDS ORDERED: ROCURONIUM 10 MG/ML (5 ML VIAL) IV ONE (13:00)
[2023-09-27] MEDS ORDERED: NEOSTIGMINE 1 MG/ML 10 ML VIAL ONE (13:00)
[2023-09-27] MEDS ORDERED: fentaNYL (PF) 50 MCG/ML 2 ML AMP ONE (13:00)
[2023-09-27] MEDS ORDERED: PANTOPRAZOLE 40 MG TABLET PO PRN (14:30)
[2023-09-27] MEDS ORDERED: ACETAMINOPHEN TAB 325 MG TAB PO PRN (14:32)
[2023-09-27] MEDS ORDERED: ONDANSETRON 4 MG/2 ML VIAL IVP PRN (14:32)
[2023-09-27] MEDS ORDERED: MAG HYDROX/AL HYDROX/SIMETH 30 ML CUP PO PRN (14:32)
[2023-09-27] MEDS ORDERED: NALOXONE 0.4 MG/ML 1 ML VIAL IV PRN (14:33)
[2023-09-27] MEDS ORDERED: HYDROmorphone PCA 10 MG/50 ML BAG IV PRN (14:33)
--- NOTE | 2023-09-27 14:36 | FL ---
EXAMINATION TYPE: FL Perc Nephrostomy New Access DATE OF EXAM: 09/27/2023 COMPARISON: 07/29/2023 HISTORY: Left renal stones Procedure had been discussed with the patient by Dr. Villegas, risks, benefits, alternatives, were dis cussed and any questions were answered. Informed consent was obtained. The patient was in a semipro ne position prepped and draped on the OR table in the usual sterile fashion. Utilizing a 15 cm lengt h [place] needle a single pass was made into a lower pole posterior calyx under fluoroscopic guidance. An 0.018 guidewire is passed through the needle and there was placement of a 6-Nigerien catheter sheat h system. There was conversion to a 0.035 system was performed with passage of a guidewire into the ureter utilizing a directional catheter. A second safety wire was placed. Remaining portion of pro cedure performed by . Approximately 4 minutes 49 seconds of fluoroscopy was provided. DAP is 15.684. IMPRESSION: 1. Successful intraoperative left nephrostomy prior to nephrolithotomy.
--- NOTE | 2023-09-27 14:39 | P.OP ---
Date of Procedure: 09/27/23 Preoperative Diagnosis: Left renal stone, large, greater than 2.5 cm Postoperative Diagnosis: Same Procedure(s) Performed: Cystoscopy, placement of occluding balloon catheter, percutaneous nephrostomy left (Dr. phillips), percutaneous nephrostolithotomy with ultrasound left, placement of 10 J nephrostomy tube left Anesthesia: ANNABEL Surgeon: Zafar Villegas Estimated Blood Loss (ml): 50 Pathology: other (Stone) Condition: stable Disposition: PACU Indications for Procedure: The patient is 83. She has bilateral painful renal stones. On the left side there is a 2 cm renal pelvic stone plus several other stones throughout the collecting system of the bifid renal pelvis. She comes for percutaneous nephrostolithotomy left Description of Procedure: Patient brought to the operative suite. Given a general anesthetic. On the transport gurney placed in a frog position with a sterile prep and drape. Cystoscopy Foroblique lens identifies the left ureteral orifice is intubated with a 5-Norwegian occluding balloon catheter passed up into the left renal pelvis. This is secured to a 16-Norwegian Echols. Patient's placed in a prone position with care to airways and extremities. Dr. Phillips of radiology performed percutaneous access to the left upper pole calyx. I then dilate the tract to 30-Norwegian and introduced the rigid sheath into the left collecting system. A few small stones or grasp and removed. The large 200 cm stone was seen in the renal pelvis and using the ultrasonic technique the stone was broken into larger fragments, removed from the collecting system. I then looked throughout the collecting system and identify stone in a posterior lower pole calyx as well as a very difficult located anterior pole calyx and basket multiple 5-7 mm stones. At the end of the procedure I looked throughout the collecting system and see no remaining stone. There is no stone on fluoroscopy. A left 10 J nephrostomy tube was placed over the working wire and irrigates freely. The patient is awakened and returned to recovery in good condition. Blood loss is less than 50 mL.
[2023-09-27] MEDS: DEXTROSE 5%-0.45% NACL 1,000 ML IV SCH (16:30)
[2023-09-27] MEDS: METOPROLOL SUCCINATE (ER) 25 MG TAB.ER.24H PO SCH (20:08)
[2023-09-28] MEDS: DEXTROSE 5%-0.45% NACL 1,000 ML IV SCH ×3 (00:59→20:23)
[2023-09-28] MEDS: LACTATED RINGERS 1,000 ML IV SCH (01:00)
--- NOTE | 2023-09-28 09:10 | P.PN ---
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 She is now reasonably comfortable. Objective - Vital Signs Vital signs: Vital Signs Temp 98.2 F 09/28/23 02:25 Pulse 67 09/28/23 02:25 Resp 18 09/28/23 02:25 BP 104/52 09/28/23 02:25 Pulse Ox 93 L 09/28/23 02:25 FiO2 Intake & Output 09/27/23 09/28/23 09/28/23 18:59 06:59 18:59 Intake Total 450 Output Total 50 500 Balance 400 -500 Weight 101.2 kg Intake: IV 450 Output: Urine 0 500 Estimated Blood Loss 50 Other: Voiding Method Indwelling Catheter - Constitutional General appearance: Present: average body habitus, no acute distress - Gastrointestinal Gastrointestinal Comment(s): Soft, non-tender, non-distended. The nephrostomy tube is draining a small amount of bloody urine without clots. The Echols catheter is draining blood- tinged urine. Assessment and Plan (1) Calculus of kidney Current Visit: No Status: Acute Code(s): N20.0 - CALCULUS OF KIDNEY SNOMED Code(s): 57211781 Plan: - D/C Echols - Continue IV hydration and parenteral analgesics - Irrigate nephrostomy tube as needed - Anticipate discharge home tomorrow
[2023-09-28] MEDS: METOPROLOL SUCCINATE (ER) 25 MG TAB.ER.24H PO SCH (20:24)
[2023-09-29 04:08] VITALS: RESP 18
[2023-09-29] MEDS: DEXTROSE 5%-0.45% NACL 1,000 ML IV SCH (04:14)
--- NOTE | 2023-09-29 09:08 | P.DS ---
Providers Date of admission: 09/28/23 14:01 Expected date of discharge: 09/29/23 Attending physician: Zafar Villegas Primary care physician: Jackie Perez - Discharge Diagnosis(es) (1) Calculus of kidney Current Visit: No Status: Acute Hospital Course: On the day of admission, the patient underwent an uncomplicated left percutaneous nephrolithotomy. The perioperative course was unremarkable. She remained afebrile with stable vital signs. On the first postoperative day, the Echols catheter was removed. At the time of discharge, the nephrostomy tube was draining blood-tinged urine. Her pain was controlled. She stated that her voided urine was bloody without clots. She denied nausea and was tolerating diet. Procedures: Left PCNL on 09/27/2023 Patient Condition at Discharge: Good Plan - Discharge Summary Discharge Rx Participant: No New Discharge Prescriptions: New traMADol HCL 50 mg PO Q6H PRN 3 Days #10 tab PRN Reason: Pain No Action Multivitamins, Thera [Theragran] 2 tab PO DAILY Rosuvastatin Calcium 5 mg PO DAILY diphenhydrAMINE [Benadryl] 25 mg PO HS PRN PRN Reason: sleep Vit C/E/Zn/Coppr/Lutein/Zeaxan [Preservision Areds 2 Softgel] 2 cap PO BID traMADol HCL 50 mg PO BID PRN PRN Reason: Pain Omeprazole [PriLOSEC] 20 mg PO AC-BRKFST PRN PRN Reason: reflux Metoprolol Succinate [Metoprolol Succinate ER] 25 mg PO HS Discharge Medication List Multivitamins, Thera [Theragran] 2 tab PO DAILY 11/11/15 [History] Vit C/E/Zn/Coppr/Lutein/Zeaxan [Preservision Areds 2 Softgel] 2 cap PO BID 12/01/22 [History] Rosuvastatin Calcium 5 mg PO DAILY 08/04/23 [History] traMADol HCL 50 mg PO BID PRN 08/04/23 [History] Metoprolol Succinate [Metoprolol Succinate ER] 25 mg PO HS 09/22/23 [History] Omeprazole [PriLOSEC] 20 mg PO AC-BRKFST PRN 09/22/23 [History] diphenhydrAMINE [Benadryl] 25 mg PO HS PRN 09/22/23 [History] traMADol HCL 50 mg PO Q6H PRN 3 Days #10 tab 09/29/23 [Rx] Follow up Appointment(s)/Referral(s): Zafar Villegas MD [STAFF PHYSICIAN] - 10/01/23 Activity/Diet/Wound Care/Special Instructions: Discharge home with nephrostomy tube. No bathing. Drink plenty of fluids. Discharge Disposition: HOME SELF-CARE
[2023-09-29 14:51] VITALS: BP 118/71; PULSE 89; TEMP 98.9
== END 2023-09-29 17:43 | disposition home or self-care (01) ==
LOC: OR 10:15 → 4SSUR 15:00 → OR 09-28 14:01
PROVIDERS: ADMIT Urology; ATTEND Urology
DX: N20.0 Calculus of kidney (principal); I10 Essential (primary) hypertension; E78.5 Hyperlipidemia, unspecified; K21.9 Gastro-esophageal reflux disease without esophagitis; M19.90 Unspecified osteoarthritis, unspecified site; Z79.899 Other long term (current) drug therapy; Z88.6 Allergy status to analgesic agent; Z88.1 Allergy status to other antibiotic agents; Z91.040 Latex allergy status; Z88.5 Allergy status to narcotic agent; Z88.2 Allergy status to sulfonamides; Z91.048 Other nonmedicinal substance allergy status; Z87.11 Personal history of peptic ulcer disease; Z87.442 Personal history of urinary calculi; Z98.84 Bariatric surgery status; Z90.710 Acquired absence of both cervix and uterus; Z96.653 Presence of artificial knee joint, bilateral; Z96.641 Presence of right artificial hip joint; Z87.19 Personal history of other diseases of the digestive system; Z95.828 Presence of other vascular implants and grafts; Z80.41 Family history of malignant neoplasm of ovary; Z80.3 Family history of malignant neoplasm of breast; Z80.1 Family history of malignant neoplasm of trachea, bronchus and lung; Z80.8 Family history of malignant neoplasm of other organs or systems
CPT/HCPCS: 82365; 50432; 74018; 50080; G0378 ×2; C1769 ×4; C2628; C1894; C1729; J0330; J1100; J2710; J2405; J2001; J3010; J1580; J0290; J2704; J1170

== ENCOUNTER 2023-10-19 13:20 | Emergency (ER) | payer MEDICARE ==
[2023-10-19 14:08] VITALS: RESP 18; TEMP 97.8
--- NOTE | 2023-10-19 14:44 | ED ---
Recheck HPI - General Source: patient, RN notes reviewed Mode of arrival: ambulatory Limitations: no limitations <Efrem Gibson - Last Filed: 10/19/23 14:43> - General Source: patient, RN notes reviewed, old records reviewed <Luis Manuel Lima - Last Filed: 10/20/23 06:59> - General Chief Complaint: Recheck/Abnormal Lab/Rx Stated Complaint: nausea, painful stomach when eating Time Seen by Provider: 10/19/23 14:43 - History of Present Illness Initial Comments: 83-year-old female presents emergency Department chief complaint of nausea, weakness. Patient states that she had a kidney stone removed. Patient states this was performed here inpatient. She states she had multiple stones patient states that she's had increasing nausea, weakness as she's not been able to drink. (Efrem Gibson) Patient originally evaluated as a quick note. I evaluated the patient after she was placed in a room. She is an 83-year-old female with past medical history remarkable for hyperlipidemia, history of kidney stones with recent nephrostomy tube that has been reversed approximately 1 month ago, as well as recent loss of her . Is a history of peptic ulcers as well. Presents complaining of epigastric abdominal discomfort that has been on and off for the last approximate month with intermittent nausea. Saw her PCP was placed on Zofran. She took a Zofran tablet yesterday and she states that this made her symptoms worse. She presents for further evaluation. I evaluated her when she was placed in a room. Currently asymptomatic. States that when she eats, the pain worsens in the epigastric region and improves when she does not. Family and patient were concerned for possible dehydration, presents for further evaluation at this time. (Luis Manuel Lima) - Related Data Home Medications Medication Instructions Recorded Confirmed Multivitamins, Thera [Theragran] 2 tab PO DAILY 11/11/15 09/22/23 Vit C/E/Zn/Coppr/Lutein/Zeaxan 2 cap PO BID 12/01/22 09/22/23 [Preservision Areds 2 Softgel] Rosuvastatin Calcium 5 mg PO DAILY 08/04/23 09/27/23 traMADol HCL 50 mg PO BID PRN 08/04/23 09/27/23 Metoprolol Succinate [Metoprolol 25 mg PO HS 09/22/23 09/27/23 Succinate ER] Omeprazole [PriLOSEC] 20 mg PO AC-BRKFST PRN 09/22/23 09/27/23 diphenhydrAMINE [Benadryl] 25 mg PO HS PRN 09/22/23 09/22/23 Previous Rx's Medication Instructions Recorded traMADol HCL 50 mg PO Q6H PRN 3 Days #10 tab 09/29/23 Cephalexin [Keflex] 500 mg PO Q12HR 5 Days #10 cap 10/20/23 Metoclopramide [Reglan] 5 mg PO BID PRN 5 Days #10 tab 10/20/23 Allergies Allergy/AdvReac Type Severity Reaction Status Date / Time latex Allergy Severe Swelling Verified 10/19/23 13:56 of Lips povidone-iodine Allergy Unknown Rash/Hives/ Verified 10/19/23 13:56 [From Betadine] itching soap [From Betadine] Allergy Unknown Rash/Hives Verified 10/19/23 13:56 hydrocodone [From [place]] Allergy Itching Verified 10/19/23 13:56 sulfamethoxazole Allergy Rash/Hives Verified 10/19/23 13:56 [From Bactrim] trimethoprim [From Bactrim] Allergy Rash/Hives Verified 10/19/23 13:56 NSAIDS (Non-Steroidal AdvReac Unknown HX OF Verified 10/19/23 13:56 Anti-Inflamma STOMACH ULCER ondansetron [From Zofran] AdvReac Nausea & Verified 10/19/23 13:56 Vomiting Review of Systems ROS Other: All systems not noted in ROS Statement are negative. <Efrem Gibson - Last Filed: 10/19/23 14:43> ROS Other: All systems not noted in ROS Statement are negative. <Luis Manuel Lima - Last Filed: 10/20/23 06:59> ROS Statement: Those systems with pertinent positive or pertinent negative responses have been documented in the HPI. Review of Systems: CONST: Denies fever EYES: Denies blurry vision ENT: Denies nasal congestion C/V: Denies Chest pain RESP: Denies shortness of breath GI: Denies abdominal pain : Denies dysuria SKIN: Denies rash. MSK: Denies joint pain. NEURO: Denies headache (Luis Manuel Lima) Past Medical History Past Medical History: Hyperlipidemia Additional Past Medical History / Comment(s): Current kidney stones. 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 History of Any Multi-Drug Resistant Organisms: None Reported Past Surgical History: Bariatric Surgery, Hysterectomy, Joint Replacement, Orthopedic Surgery, Tonsillectomy Additional Past Surgical History / Comment(s): IVC FILTER RIGHT GROIN, GASTRIC BYPASS (NOV 2009) AND 9 DAYS LATER SURGERY FOR BOWEL OBSTRUCTION, BILATERAL KNEE REPLACEMENTS, CYST REOVED FROM LEFT WRIST, RIGHT ROTATOR CUFF REPAIR, right hip replacement. Past Anesthesia/Blood Transfusion Reactions: No Reported Reaction, Motion Sickness Additional Past Anesthesia/Blood Transfusion Reaction / Comment(s): no problems with prior blood transfusion Past Psychological History: Anxiety Smoking Status: Never smoker Past Alcohol Use History: None Reported Past Drug Use History: None Reported - Past Family History Son(s) Family Medical History: Cancer Mother Family Medical History: Cancer Additional Family Medical History / Comment(s): OVARIAN Cancer. Sister(s) Family Medical History: Cancer Additional Family Medical History / Comment(s): 2 sisters had cancer.(breast,lung) Brother(s) Family Medical History: Cancer Additional Family Medical History / Comment(s): BONE CANCER. <Efrem Gibson - Last Filed: 10/19/23 14:43> General Exam <Efrem Gibson - Last Filed: 10/19/23 14:43> <Luis Manuel Lima - Last Filed: 10/20/23 06:59> - General Exam Comments Initial Comments: Visual Physical Exam Vital signs reviewed General: Well-appearing, nontoxic, no acute distress. Head: Normocephalic, atraumatic Eyes: PERRLA, EOMI ENT: Airway patent Chest: Nonlabored breathing Skin: No visual rash, normal skin tone Neuro: Alert and oriented 3 Musculoskeletal: No gross abnormalities (Efrem Gibson) General: Appears in no acute distress. HEAD: Normal with no signs of head trauma. EYES: PERRLA, EOMI, conjunctiva normal, no discharge. ENT: Hearing grossly intact, normal oropharynx. RESPIRATORY: Clear breath sounds bilaterally. No wheezes, rales, or rhonchi. C/V: Regular rate and rhythm. S1 and S2 auscultated, no edema, peripheral pulses 2+ and intact throughout ABD: Abd is soft, nontender, nondistended EXT: Normal range of motion, no obvious deformity SKIN: No rashes or lesions observed on exposed skin. NEURO: Alert and oriented 4. (Luis Manuel Lima) Course Vital Signs 10/19/23 10/20/23 13:48 00:18 Temperature 97.8 F Pulse Rate 84 78 Respiratory 18 18 Rate Blood Pressure 109/64 146/70 O2 Sat by Pulse 99 96 Oximetry Medical Decision Making <Efrem Gibson - Last Filed: 10/19/23 14:43> - Lab Data Result diagrams: 10/19/23 15:08 10/19/23 15:08 <Luis Manuel Lima - Last Filed: 10/20/23 06:59> - Medical Decision Making I completed the quick note portion of this chart signed Efrem Gibson PA-C (Efrem Gibson) Was pt. sent in by a medical professional or institution (BILL Yeh, TICKET ATTENDANT, urgent care, hospital, or residential...) When possible be specific @ -No Did you speak to anyone other than the patient for history (EMS, parent, family, police, friend...)? What history was obtained from this source @ -No Did you review nursing and triage notes (agree or disagree)? Why? @ -I reviewed and agree with nursing and triage notes Were old charts reviewed (outside hosp., previous admission, EMS record, old EKG, old radiological studies, urgent care reports/EKG's, residential records)? Report findings @ -Old charts reviewed Differential Diagnosis (chest pain, altered mental status, abdominal pain women, abdominal pain men, vaginal bleeding, weakness, fever, dyspnea, syncope, headache, dizziness, GI bleed, back pain, seizure, CVA, palpatations, mental health, musculoskeletal)? @ -Differential Abdominal Pain Women: Appendicitis, Cholecystitis, diverticulosis, ischemic bowel, pancreatitis, hepatitis, UTI, gastroenteritis, AAA, incarcerated hernia, bowel obstruction, constipation, inflammatory bowel, hepatitis, peptic ulcer disease, splenic infa rction, perforated viscus, vulvitis, ovarian torsion, PID, kidney stone, placenta abruption, this is not meant to be an all-inclusive list EKG interpreted by me (3pts min.). @ -None done X-rays interpreted by me (1pt min.). @ -None done CT interpreted by me (1pt min.). @ -None done U/S interpreted by me (1pt. min.). @ -None done What testing was considered but not performed or refused? (CT, X-rays, U/S, labs)? Why? @ -Considered ultrasound of the abdomen however patient's asymptomatic at this time with normal laboratory studies. Discussed with patient and they agreed that we'll evaluate with PCP and obtain outpatient ultrasound, as it is late at night and Ultrasound may not be available at this time. What meds were considered but not given or refused? Why? @ -None Did you discuss the management of the patient with other professionals (peggy moser i.e. , PA, TICKET ATTENDANT, lab, RT, psych nurse, psychosocial rehabilitation counselor, bill adjuster, teacher, information officer, casework specialist)? Give summary @ -No Was smoking cessation discussed for >3mins.? @ -No Was critical care preformed (if so, how long)? @ -No Were there social determinants of health that impacted care today? How? (Homelessness, low income, unemployed, alcoholism, drug addiction, transportati on, low edu. Level, literacy, decrease access to med. care, senior living, rehab)? @ -No Was there de-escalation of care discussed even if they declined (Discuss DNR or withdrawal of care, Hospice)? DNR status @ -No What co-morbidities impacted this encounter? (DM, HTN, Smoking, COPD, CAD, Cancer, CVA, ARF, Chemo, Hep., AIDS, mental health diagnosis, sleep apnea, morbid obesity)? @ -None Was patient admitted / discharged? Hospital course, mention meds given and route, prescriptions, significant lab abnormalities, going to OR and other pertinent info. @ -Based on the patient's presentation and physical exam, presents with what sounds like ulcer type pain. Currently asymptomatic. I evaluated the patient after she was placed in a room. She is been in the emergency department all afternoon. Patient's laboratory studies are unremarkable. We discussed at length, and symptoms do seem to be similar to peptic ulcer disease. We discussed the possibility that may be her gallbladder however as it is late at night and patient would like to go home and she is asymptomatic with normal hepatobiliary labs, I believe it is reasonable for her to follow up with their PCP for outpatient help gallbladder ultrasound prescription. She was in agreement this plan. We'll send the urine I will call her with the results. We discussed at length, and it seems like there is a significant stress factor involved with her current symptoms as her recently and she is dealing with it. She does see of the grief counselor. Does seem to be going through the normal grieving process. Recommended she continue with her grief counseling. At this time she'll be discharged home. Strict return precautions discussed. I will provide the patient with a prescription for Keflex, Reglan. I instructed the patient to follow up with their PCP in the next 1-3 days. I explained that the patient should return to the emergency department if they experience any worsening symptoms. Strict return precautions were discussed with the patient. The patient expressed understanding of these instructions. I answered all questions that the patient had. The patient was discharged home in good condition with their prescriptions and follow up information. I attempted to contact the patient and left a voicemail instructing the callback with results of her urine which did show a UTI. Antibiotics sent to her pharmacy.Patient did leave prior to results of urinalysis. Multiple attempts made to contact the patient. I did send antibiotics to her pharmacy. I will fo r spinal still have her call the department back. Undiagnosed new problem with uncertain prognosis? @ -No Drug Therapy requiring intensive monitoring for toxicity (Heparin, Nitro, Insulin, Cardizem)? @ -No Were any procedures done? @ -No Diagnosis/symptom? @ -UTI, GERD Acute, or Chronic, or Acute on Chronic? @ -Acute Uncomplicated (without systemic symptoms) or Complicated (systemic symptoms)? @ -Uncomplicated Side effects of treatment? @ -No Exacerbation, Progression, or Severe Exacerbation? @ -No Poses a threat to life or bodily function? How? (Chest pain, USA, MS, pneumonia, PE, COPD, DKA, ARF, appy, cholecystitis, CVA, Diverticulitis, Homicidal, Suicidal, threat to staff... and all critical care pts) @ -No (Luis Manuel Lima) - Lab Data Lab Results 10/19/23 10/19/23 10/19/23 Range/Units 15:08 15:08 15:08 WBC 8.6 (3.8-10.6) k/uL RBC 4.13 (3.80-5.40) m/uL Hgb 13.1 (11.4-16.0) gm/dL Hct 41.4 (34.0-46.0) % MCV 100.3 H (80.0-100.0) fL MCH 31.8 (25.0-35.0) pg MCHC 31.7 (31.0-37.0) g/dL RDW 14.4 (11.5-15.5) % Plt Count 250 (150-450) k/uL MPV 9.6 Neutrophils % 53 % Lymphocytes % 34 % Monocytes % 6 % Eosinophils % 5 % Basophils % 1 % Neutrophils # 4.5 (1.3-7.7) k/uL Lymphocytes # 2.9 (1.0-4.8) k/uL Monocytes # 0.5 (0-1.0) k/uL Eosinophils # 0.5 (0-0.7) k/uL Basophils # 0.0 (0-0.2) k/uL Hypochromasia Slight Macrocytosis Slight Sodium 138 (137-145) mmol/L Potassium 4.3 (3.5-5.1) mmol/L Chloride 103 (98-107) mmol/L Carbon Dioxide 26 (22-30) mmol/L Anion Gap 9 mmol/L BUN 22 H (7-17) mg/dL Creatinine 0.94 (0.52-1.04) mg/dL Est GFR (CKD-EPI)AfAm 65 (>60 ml/min/1.73 sqM) Est GFR (CKD-EPI)NonAf 56 (>60 ml/min/1.73 sqM) Glucose 108 H (74-99) mg/dL Plasma Lactic Acid Dao 1.0 (0.7-2.0) mmol/L Calcium 9.2 (8.4-10.2) mg/dL Total Bilirubin 0.6 (0.2-1.3) mg/dL AST 29 (14-36) U/L ALT 16 (4-34) U/L Alkaline Phosphatase 78 (38-126) U/L Total Protein 7.1 (6.3-8.2) g/dL Albumin 3.8 (3.5-5.0) g/dL Lipase 139 (23-300) U/L Urine Color Urine Appearance (Clear) Urine pH (5.0-8.0) Ur Specific [place] (1.001-1.035) Urine Protein (Negative) Urine Glucose (UA) (Negative) Urine Ketones (Negative) Urine Blood (Negative) Urine Nitrite (Negative) Urine Bilirubin (Negative) Urine Urobilinogen (<2.0) mg/dL Ur Leukocyte Esterase (Negative) Urine RBC (0-5) /hpf Urine WBC (0-5) /hpf Ur Squamous Epith Cells (0-4) /hpf Calcium Oxalate Crystal (None) /hpf Amorphous Sediment (None) /hpf Urine Bacteria (None) /hpf Hyaline Casts (0-2) /lpf Urine Mucus (None) /hpf 10/20/23 Range/Units 00:19 WBC (3.8-10.6) k/uL RBC (3.80-5.40) m/uL Hgb (11.4-16.0) gm/dL Hct (34.0-46.0) % MCV (80.0-100.0) fL MCH (25.0-35.0) pg MCHC (31.0-37.0) g/dL RDW (11.5-15.5) % Plt Count (150-450) k/uL MPV Neutrophils % % Lymphocytes % % Monocytes % % Eosinophils % % Basophils % % Neutrophils # (1.3-7.7) k/uL Lymphocytes # (1.0-4.8) k/uL Monocytes # (0-1.0) k/uL Eosinophils # (0-0.7) k/uL Basophils # (0-0.2) k/uL Hypochromasia Macrocytosis Sodium (137-145) mmol/L Potassium (3.5-5.1) mmol/L Chloride (98-107) mmol/L Carbon Dioxide (22-30) mmol/L Anion Gap mmol/L BUN (7-17) mg/dL Creatinine (0.52-1.04) mg/dL Est GFR (CKD-EPI)AfAm (>60 ml/min/1.73 sqM) Est GFR (CKD-EPI)NonAf (>60 ml/min/1.73 sqM) Glucose (74-99) mg/dL Plasma Lactic Acid Dao (0.7-2.0) mmol/L Calcium (8.4-10.2) mg/dL Total Bilirubin (0.2-1.3) mg/dL AST (14-36) U/L ALT (4-34) U/L Alkaline Phosphatase (38-126) U/L Total Protein (6.3-8.2) g/dL Albumin (3.5-5.0) g/dL Lipase (23-300) U/L Urine Color Yellow Urine Appearance Cloudy H (Clear) Urine pH 5.0 (5.0-8.0) Ur Specific [place] 1.017 (1.001-1.035) Urine Protein Trace H (Negative) Urine Glucose (UA) Negative (Negative) Urine Ketones Negative (Negative) Urine Blood Negative (Negative) Urine Nitrite Negative (Negative) Urine Bilirubin Negative (Negative) Urine Urobilinogen <2.0 (<2.0) mg/dL Ur Leukocyte Esterase Large H (Negative) Urine RBC 34 H (0-5) /hpf Urine WBC 118 H (0-5) /hpf Ur Squamous Epith Cells 7 H (0-4) /hpf Calcium Oxalate Crystal Moderate H (None) /hpf Amorphous Sediment Occasional H (None) /hpf Urine Bacteria Occasional H (None) /hpf Hyaline Casts 51 H (0-2) /lpf Urine Mucus Moderate H (None) /hpf Disposition <Efrem Gibson - Last Filed: 10/19/23 14:43> Is patient prescribed a controlled substance at d/c from ED?: No Time of Disposition: 23:58 <Luis Manuel Lima - Last Filed: 10/20/23 06:59> Clinical Impression: GERD (gastroesophageal reflux disease), UTI (urinary tract infection) Disposition: HOME SELF-CARE Condition: Good Instructions (If sedation given, give patient instructions): Diet for Stomach Ulcers and Gastritis (ED), GERD (Gastroesophageal Reflux Disease) (ED) Prescriptions: Cephalexin [Keflex] 500 mg PO Q12HR 5 Days #10 cap Metoclopramide [Reglan] 5 mg PO BID PRN 5 Days #10 tab PRN Reason: Nausea Referrals: Jackie Perez MD [Primary Care Provider] - 1-2 days Divine Underwood MD [STAFF PHYSICIAN] - 1-2 days
[2023-10-19 15:22] LABS: Basophils % (A) 1 %; Eosinophils # (A) 0.5 k/uL (0-0.7); Eosinophils % (A) 5 %; HCT 41.4 % (34.0-46.0); HGB 13.1 gm/dL (11.4-16.0); Hypochromasia Slight; Lymphocytes # (A) 2.9 k/uL (1.0-4.8); Lymphocytes % (A) 34 %; MCH 31.8 pg (25.0-35.0); MCHC 31.7 g/dL (31.0-37.0); MCV 100.3 fL (80.0-100.0); Macrocytosis Slight; Mean Platelet Volume 9.6; Monocytes # (A) 0.5 k/uL (0-1.0); Monocytes % (A) 6 %; Neutrophils # (A) 4.5 k/uL (1.3-7.7); Neutrophils % (A) 53 %; Platelet Count 250 k/uL (150-450); RBC 4.13 m/uL (3.80-5.40); RDW 14.4 % (11.5-15.5); WBC 8.6 k/uL (3.8-10.6)
[2023-10-19 15:26] LABS: African American GFR (CKD) 65 (>60 ml/min/1.73 sqM); Anion Gap 9 mmol/L; Blood Urea Nitrogen 22 mg/dL (7-17); Carbon Dioxide 26 mmol/L (22-30); Chloride 103 mmol/L (98-107); Glucose 108 mg/dL (74-99); Non-African American GFR(CKD) 56 (>60 ml/min/1.73 sqM); Potassium 4.3 mmol/L (3.5-5.1); Sodium 138 mmol/L (137-145)
[2023-10-19 15:27] LABS: ALT 16 U/L (4-34); AST 29 U/L (14-36); Albumin 3.8 g/dL (3.5-5.0); Alkaline Phosphatase 78 U/L (38-126); Calcium 9.2 mg/dL (8.4-10.2); Lipase 139 U/L (23-300); Total Bilirubin 0.6 mg/dL (0.2-1.3); Total Protein 7.1 g/dL (6.3-8.2)
[2023-10-20 00:23] VITALS: BP 146/70; PULSE 78
[2023-10-20 00:51] LABS: Amorphous Sediment,Urine Occasional /hpf; Appearance,Urine Cloudy (Clear); Bacteria,Urine Occasional /hpf; Bilirubin,Urine Negative (Negative); Blood,Urine Negative (Negative); Calcium Oxalate Crystals,Urine Moderate /hpf; Color,Urine Yellow; Glucose,Urine (UA) Negative (Negative); Hyaline Casts,Urine 51 /lpf (0-2); Ketones,Urine Negative (Negative); Leukocyte Esterase,Urine Large (Negative); Mucus,Urine Moderate /hpf; Nitrite,Urine Negative (Negative); Protein,Urine Trace (Negative); RBC,Urine 34 /hpf (0-5); Specific Gravity,Urine 1.017 (1.001-1.035); Squamous Epithelial Cell,Urine 7 /hpf (0-4); Urobilinogen,Urine <2.0 mg/dL (<2.0); WBC,Urine 118 /hpf (0-5)
== END 2023-10-20 00:23 | disposition home or self-care (01) ==
LOC: EC 13:20
DX: K21.9 Gastro-esophageal reflux disease without esophagitis (principal); N39.0 Urinary tract infection, site not specified; E78.5 Hyperlipidemia, unspecified; F41.9 Anxiety disorder, unspecified; Z91.040 Latex allergy status; Z88.8 Allergy status to other drugs, medicaments and biological substances; Z88.6 Allergy status to analgesic agent; Z88.2 Allergy status to sulfonamides; Z88.5 Allergy status to narcotic agent; Z79.899 Other long term (current) drug therapy
CPT/HCPCS: 36415; 80053; 81001; 83605; 83690; 85025; 99283

== ENCOUNTER → 2023-11-10 | Outpatient (CLI) | payer MEDICARE ==
[2023-11-10 18:32] LABS: Basophils # (A) 0.08 X 10*3/uL (0.00-0.10); Basophils % (A) 1.3 %; Eosinophils # (A) 0.27 X 10*3/uL (0.04-0.35); Eosinophils % (A) 4.3 %; HCT 42.8 % (37.2-46.3); HGB 13.4 g/dL (12.0-15.0); Lymphocytes # (A) 1.81 X 10*3/uL (0.90-5.00); MCHC 31.3 g/dL (32.0-37.0); MCV 99.1 FL (80.0-97.0); Mean Platelet Volume 12.3 FL (9.5-12.2); Monocytes # (A) 0.71 X 10*3/uL (0.20-1.00); Monocytes % (A) 11.4 %; NRBC Per 100 WBC 0 X 10*3/uL (0.00-0.01); Neutrophils # (A) 3.37 X 10*3/uL (1.80-7.70); Neutrophils % (A) 53.8 %; Platelet Count 275 X 10*3/uL (140-440); RBC 4.32 X 10*6/uL (4.10-5.20); RDW 15.2 % (11.5-14.5); WBC 6.25 X 10*3/uL (4.50-10.00)
[2023-11-10 20:48] LABS: ALT 15 U/L (8-44); AST 28 U/L (13-35); Albumin/Globulin Ratio 1.25 Ratio (1.60-3.17); Alkaline Phosphatase 81 U/L (41-126); Blood Urea Nitrogen 26.6 mg/dL (9.0-27.0); Calcium 9.7 mg/dL (8.7-10.3); Carbon Dioxide 23.7 mmol/L (21.6-31.8); Chloride 104 mmol/L (96-109); Globulin 3.2 g/dL (1.6-3.3); Glucose 99 mg/dL (70-110); Potassium 4.2 mmol/L (3.5-5.5); Sodium 142 mmol/L (135-145); Total Bilirubin 0.4 mg/dL (0.3-1.2); Total Protein 7.2 g/dL (6.2-8.2)
[2023-11-10 22:05] LABS: Appearance,Urine Clear (Clear); Bilirubin,Urine Negative (Negative); Blood,Urine Negative (Negative); Color,Urine Yellow (Yellow); Ketones,Urine Negative (Negative); Nitrite,Urine Negative (Negative); PH, Urine 5.5; Specific Gravity,Urine 1.018 (1.001-1.030); Urobilinogen,Urine 0.2 E.U./DL
[2023-11-10 23:09] LABS: Bacteria,Urine Trace
== END | disposition home or self-care (01) ==
LOC: LABPAT 13:14
PROVIDERS: ATTEND Urology
DX: Z01.812 Encounter for preprocedural laboratory examination (principal); N20.0 Calculus of kidney
CPT/HCPCS: 36415; 80053; 81001; 85025; 86850; 86900; 86901; 87086

== ENCOUNTER 2023-11-17 07:56 | Observation (INO) | payer MEDICARE ==
[2023-11-10 13:17] VITALS: BMI 36.0
--- NOTE | 2023-11-16 08:48 | P.GSHP ---
History of Present Illness H&P Date: 11/16/23 83 yo female with caox kidney stone disease. She had a left pcnl for a staghorn calculous. She now comes for a right pcnl for a staghorn calculous[>3cm] in that kideny. the risks, complications and alternatives have been discussed. - Constitutional Constitutional: Denies chills, Denies fever - EENT Eyes: denies blurred vision, denies pain Ears, nose, mouth and throat: Denies headache, Denies sore throat - Cardiovascular Cardiovascular: Denies chest pain, Denies shortness of breath - Respiratory Respiratory: Denies cough, Denies 7 - Gastrointestinal Gastrointestinal: Denies abdominal pain, Denies diarrhea, Denies nausea, Denies vomiting - Genitourinary (Female) Genitourinary: Denies dysuria, Denies hematuria - Genitourinary (Male) Genitourinary: Denies dysuria, Denies hematuria - Musculoskeletal Musculoskeletal: Denies myalgias - Integumentary Integumentary: Denies pruritus, Denies rash - Neurological Neurological: Denies numbness, Denies weakness - Psychiatric Psychiatric: Denies anxiety, Denies depression - Endocrine Endocrine: Denies fatigue, Denies weight change Past Medical History Past Medical History: GERD/Reflux, Hyperlipidemia, Osteoarthritis (OA) Additional Past Medical History / Comment(s): Current kidney stones. 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 History of Any Multi-Drug Resistant Organisms: None Reported Past Surgical History: Bariatric Surgery, Hysterectomy, Joint Replacement, Orthopedic Surgery, Tonsillectomy Additional Past Surgical History / Comment(s): IVC FILTER RIGHT GROIN, GASTRIC BYPASS (NOV 2009) AND 9 DAYS LATER SURGERY FOR BOWEL OBSTRUCTION, BILATERAL KNEE REPLACEMENTS, CYST REOVED FROM LEFT WRIST, RIGHT ROTATOR CUFF REPAIR, right hip replacement, left percutaneous nephrostolithotomy. Past Anesthesia/Blood Transfusion Reactions: No Reported Reaction, Motion Si ckness Additional Past Anesthesia/Blood Transfusion Reaction / Comment(s): No problems with prior blood transfusion. Past Psychological History: Anxiety Additional Psychological History / Comment(s): Some anxiety when son was sick and and when lost her 06/25/23. Smoking Status: Never smoker Past Alcohol Use History: None Reported Past Drug Use History: None Reported - Past Family History Son(s) Family Medical History: Cancer Mother Family Medical History: Cancer Additional Family Medical History / Comment(s): OVARIAN Cancer. Sister(s) Family Medical History: Cancer Additional Family Medical History / Comment(s): 2 sisters had cancer(breast,lung). Brother(s) Family Medical History: Cancer Additional Family Medical History / Comment(s): BONE CANCER. Medications and Allergies Home Medications Medication Instructions Recorded Confirmed Type Multivitamins, Thera [Theragran] 2 tab PO DAILY 11/11/15 11/10/23 History Vit C/E/Zn/Coppr/Lutein/Zeaxan 2 cap PO BID 12/01/22 11/10/23 History [Preservision Areds 2 Softgel] Allergies Allergy/AdvReac Type Severity Reaction Status Date / Time latex Allergy Severe Swelling Verified 11/10/23 13:12 of Lips povidone-iodine Allergy Unknown Rash/Hives/ Verified 11/10/23 13:12 [From Betadine] itching soap [From Betadine] Allergy Unknown Rash/Hives Verified 11/10/23 13:12 hydrocodone [From [place]] Allergy Itching Verified 11/10/23 13:12 sulfamethoxazole Allergy Rash/Hives Verified 11/10/23 13:12 [From Bactrim] trimethoprim [From Bactrim] Allergy Rash/Hives Verified 11/10/23 13:12 NSAIDS (Non-Steroidal AdvReac Unknown HX OF Verified 11/10/23 13:12 Anti-Inflamma STOMACH ULCER ondansetron [From Zofran] AdvReac Nausea & Verified 11/10/23 13:12 Vomiting Surgical - Exam - General well developed, well nourished, no distress - Eyes normal ocular movement, no icteric - ENT no hearing loss, no congestion - Neck no masses, trachea midline - Respiratory normal respiratory effort, clear to auscultation - Abdomen Abdomen: soft, non tender, no guarding, no rigid, no rebound - Integumentary no rash, no abnormal pigmentation - Neurologic no disoriented, no combative - Psychiatric oriented to time, oriented to person, oriented to place, speech is normal, memory intact Results - Imaging Abdominal x-ray: report reviewed, image reviewed CT scan - abdomen: report reviewed, image reviewed CT scan - pelvis: report reviewed, image reviewed Assessment and Plan Assessment: 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
[~2023-11-17 07:56] MED LIST changes: +GENTAMICIN 110 MG in SODIUM CHLORIDE 0.9% 100 ML IVPB PRN; -GENTAMICIN 120 MG in SODIUM CHLORIDE 0.9% 100 ML IVPB PRN; -HYDROmorphone 0.5 MG/0.5 ML SYRINGE IVP PRN; +LIDOCAINE 1% (10MG/ML) FOR IV START INTRADERMA PRN; -ONDANSETRON 4 MG/2 ML VIAL IVP ONE; +droPERidol 5 MG/2 ML VIAL IVP ONE
--- NOTE | 2023-11-17 08:31 | XR ---
EXAMINATION TYPE: XR KUB DATE OF EXAM: 11/17/2023 8:13 AM CLINICAL INDICATION:Female, 83 years old with history of Right kidney stone; [facility] COMPARISON: Radiograph 09/27/2023 TECHNIQUE: Supine radiographic view/s of the abdomen/pelvis obtained. FINDINGS: Unremarkable bowel gas pattern. Psoas margins and properitoneal fat stripes margins are maintained. No organomegaly is suggested. Retrievable IVC filter just right of midline at the L2-L3 level. Moderate to severe degenerative changes of the lumbar spine. Right total hip arthroplasty unremarkabl e. Moderate arterial vascular calcifications. Redemonstration of multiple bilateral renal calculi. The largest on the left which measured 24 x 20 m m is no longer present. Other calcifications seen before over the left kidney are also no longer seen , were likely renal calculi. Largest suspected calculus currently on the left is about 3.3 mm. Pelvic phleboliths are redemonstrated. Slight increase in small calcifications in the left pelvis, could po tentially represent distal left ureteral stone fragments and/or bladder calculi. Multiple right renal calculi are again seen, some slightly shifted in position but overall stable. Th e largest are 17 x 15 mm projected over the region of the renal pelvis and 15 x 14 mm projected over the upper pole. Lower pole smaller calculi are also present. Multiple calculi again seen projecting c raniocaudally over the right psoas, likely represent [place] within the proximal and mid ureter, the largest superiorly is 10 x 7 mm. No clear-cut distal ureteral calculi can be identified but renetta ot be ruled out due to the multiplicity of phleboliths.. IMPRESSION: 1. Left renal calculi seen previously are no longer identified. Largest suspected calculus on the le ft is now about 3.3 mm. 2. Possible small distal left ureteral calculi/stone fragments versus bladder calculi. 3. Multiple right renal and ureteral calculi, essentially stable from the prior exam. Largest is 17 x 15 mm projected over the renal pelvis.
[2023-11-17] MEDS: LACTATED RINGERS 1,000 ML IV SCH (09:55)
[2023-11-17] MEDS ORDERED: HYDROmorphone (PF) 1 MG/ML ONE (11:27)
[2023-11-17] MEDS ORDERED: LIDOCAINE 1% INJ 10MG/ML (20 ML MDV) ONE (11:27)
[2023-11-17] MEDS ORDERED: SUCCINYLCHOLINE CHLORIDE 200 MG/10 ML VIAL IV ONE (11:27)
[2023-11-17] MEDS ORDERED: ROCURONIUM 10 MG/ML (5 ML VIAL) IV ONE (11:27)
[2023-11-17] MEDS ORDERED: NEOSTIGMINE 1 MG/ML 10 ML VIAL ONE (11:27)
[2023-11-17] MEDS ORDERED: GLYCOPYRROLATE 0.2 MG/ML 2 ML VIAL ONE (11:27)
[2023-11-17] MEDS ORDERED: PROPOFOL 10 MG/ML 20 ML VIAL IV ONE (11:27)
[2023-11-17] MEDS ORDERED: fentaNYL (PF) 50 MCG/ML 2 ML AMP ONE (11:27)
[2023-11-17] MEDS ORDERED: IOPAMIDOL-370 100ML BTL MISCELLANE ONE (11:29)
[2023-11-17] MEDS ORDERED: LACTATED RINGERS 1,000 ML IV ONE (12:45)
[2023-11-17] MEDS ORDERED: MAG HYDROX/AL HYDROX/SIMETH 30 ML CUP PO PRN (13:16)
[2023-11-17] MEDS ORDERED: ACETAMINOPHEN TAB 325 MG TAB PO PRN (13:16)
[2023-11-17] MEDS ORDERED: HYDROmorphone PCA 10 MG/50 ML BAG IV PRN (13:17)
[2023-11-17] MEDS ORDERED: NALOXONE 0.4 MG/ML 1 ML VIAL IV PRN (13:17)
--- NOTE | 2023-11-17 13:23 | P.OP ---
Date of Procedure: 11/17/23 Preoperative Diagnosis: Renal stones, large, right (greater than 3 cm Postoperative Diagnosis: Same Procedure(s) Performed: Cystoscopy, placement of occluding balloon catheter right, percutaneous nephrostomy (Dr. Villegas), percutaneous nephrostolithotomy to ultrasound, placement of 24-Persian reentry nephrostomy tube Anesthesia: ANNABEL Surgeon: Zafar Villegas Estimated Blood Loss (ml): 50 Pathology: none sent Condition: stable Disposition: PACU Indications for Procedure: Patient is 83. She has active calcium oxalate urolithiasis. She had a percutaneous nephrostolithotomy on the left. The stones were removed. She has 3 large stones each about a centimeter and a half totaling 4 and half centimeters in the right kidney. She comes for percutaneous nephrostolithotomy. Description of Procedure: A shunt brought to the operating suite. Given a general anesthetic on the transport gurney. Place in a frog position. Cystoscopy Foroblique lens and 21- Persian sheath identifies a right ureteral orifice which is intubated and passed up into the renal pelvis. Secured to a 16-Persian Echols The patient's placed in a prone position. perCutaneous nephrostomy is placed and will be dictated separately. I then dilate the nephrostomy tract to 30-Persian it is an upper pole track between ribs 12 and 11. I passed the rigid nephroscope into the collecting system. It bleeds easily is edematous and tears very easily. Identify the renal pelvic stone which is large. With the ultrasound I [however break easily due to the size and age of the stone. Drops into a lower pole calyx. I then identify the upper pole calyx stone attempt to break it but it falls into the renal pelvis which is edematous and somewhat torn. I thus elected terminate the procedure not so as not to lose that stone. A 24-Persian reentry nephrostomy tube was placed and I will do a secondary nephrostolithotomy to remove may need stones. Blood loss is 50 mL. She tolerated procedure well. She'll be placed in the hospital postoperatively and set up for a secondary nephrostolithotomy next week.
--- NOTE | 2023-11-17 13:26 | P.PCN ---
Date of Procedure: 11/17/23 Preoperative Diagnosis: Right renal stones, large,greater than 3 cm Postoperative Diagnosis: Same Procedure(s) Performed: Percutaneous access for nephrostolithotomy right Anesthesia: GETA Surgeon: Zafar Villegas Description of Procedure: Patient is prepped and draped sterilely. A previously placed occluding balloon catheter in the right proximal ureter. Under fluoroscopy there are 3 large stones identified. I attempted to go after posterior middle pole calyx but the 12th rib is in the way. I then identify an upper pole calyx that is posterior. With the Chiba needle I passed down to the calyx of. It is placed in the upper pole calyx and seen in 2 views of fluoroscopy. The cope wires and passed through the needle into the upper ureter. Over the wire then pass a 3-[place] dilating catheter. The inner sheath is removed. I then pass an 035 wire down the ureter and advance the 3-[place] dilating catheter over the wire. Then pass an 035 super if wire down the ureter. Then dilate the tract from 8-10-[place]an. A second wires passed down the ureter. I then over the Super Stiff wire pass the nephrostomy tract dilating balloon which is insufflated to 30-[place]an. The working sheath is placed into the collecting system.
[2023-11-17] MEDS: fentaNYL (PF) 50 MCG/ML 2 ML AMP IV PRN ×2 (13:50→14:08)
--- NOTE | 2023-11-17 15:03 | FL ---
EXAMINATION TYPE: FL Perc Nephrostomy New Access Intraoperative/procedural fluoroscopic services were provided. Total fluoroscopy time is 12.07 minutes with a total of 4 submitted images to PACS. Please see the operative/procedural note for further details. DAP: 90.635 Gycm2
[2023-11-17] MEDS: DEXTROSE 5%-0.45% NACL 1,000 ML IV SCH ×2 (17:12→23:07)
[2023-11-17] MEDS: CIPROFLOXACIN HCL 500 MG TAB PO SCH (20:56)
[2023-11-18] MEDS: LACTATED RINGERS 1,000 ML IV SCH (05:38)
[2023-11-18] MEDS: CIPROFLOXACIN HCL 500 MG TAB PO SCH ×2 (07:36→19:44)
--- NOTE | 2023-11-18 07:38 | P.PN ---
Subjective Progress Note Date: 11/18/23 The patient is in her first postoperative day from a right percutaneous nephrostolithotomy. The procedure was not completely finished due to edema mucosal tearing. A nephrostomy tube was placed. She will need a secondary percutaneous nephrostolithotomy. Objective - Vital Signs Vital signs: Vital Signs Temp 98.5 F 11/18/23 00:41 Pulse 96 11/18/23 00:41 Resp 16 11/18/23 00:41 BP 166/78 11/18/23 00:41 Pulse Ox 93 L 11/18/23 00:41 FiO2 Intake & Output 11/17/23 11/18/23 11/18/23 18:59 06:59 18:59 Intake Total 1952.75 Output Total 650 850 Balance 1302.75 -850 Weight 95.3 kg Intake: IV 1951.75 Output: Drainage 50 Right Back 50 Urine 550 850 Estimated Blood Loss 50 Other: Voiding Method Indwelling Catheter - Constitutional General appearance: Present: cooperative, no acute distress - Respiratory Details: Normal respirations - Cardiovascular Rhythm: regular - Gastrointestinal Gastrointestinal Comment(s): Soft and nontender, right nephrostomy tube draining urine. Old blood in the tubing but appears to be clearing - Genitourinary Genitourinary Comment(s): Echols catheter with light tea urine Assessment and Plan Assessment: Impression: Postoperative day #1 from right percutaneous nephrostolithotomy,, incomplete Recommendations. I did discuss with the patient the status of the incomplete stone removal and the need for a secondary nephrostolithotomy. I'll schedule her for a week from today allowing the nephrostomy tract to mature. This should allow us to remove the remaining stone without creating a new tract. At present she is not comfortable enough or mobile enough to be discharged. We will continue with postoperative care
[2023-11-18] MEDS: NYSTATIN 100,000 UNIT/GM POWD 15 GM TOPICAL SCH ×2 (08:04→22:51)
[2023-11-18] MEDS: DEXTROSE 5%-0.45% NACL 1,000 ML IV SCH ×2 (10:09→20:07)
[2023-11-18] MEDS: ONDANSETRON 4 MG/2 ML VIAL IVP PRN ×2 (13:45→19:44)
[2023-11-18] MEDS: ALPRAZolam 0.5 MG TAB PO PRN (20:03)
[2023-11-19] MEDS: DEXTROSE 5%-0.45% NACL 1,000 ML IV SCH ×2 (05:19→14:24)
[2023-11-19] MEDS: LACTATED RINGERS 1,000 ML IV SCH (05:45)
--- NOTE | 2023-11-19 07:38 | P.PN ---
Subjective Progress Note Date: 11/19/23 The patient is in her second postoperative day from an incomplete removal of kidney stone percutaneously on 11/17/23 from the right kidney. Urine is clearing. Her appetite is still limited with some nausea. She is extremely anxious with regards to the incomplete removal and the need for a secondary nep hrostolithotomy. Her vital signs are stable she is afebrile. Objective - Vital Signs Vital signs: Vital Signs Temp 98.3 F 11/19/23 07:00 Pulse 93 11/19/23 07:00 Resp 18 11/19/23 07:00 BP 147/74 11/19/23 07:00 Pulse Ox 94 L 11/19/23 07:00 FiO2 Intake & Output 11/18/23 11/19/23 11/19/23 18:59 06:59 18:59 Intake Total 375 Output Total 100 600 Balance 275 -600 Intake: Oral 50 Tube Feeding 325 Output: Urine 100 600 Other: Voiding Method Indwelling Catheter Indwelling Catheter # Bowel Movements 0 - Constitutional General appearance: Present: morbidly obese - Cardiovascular Rhythm: regular - Gastrointestinal General gastrointestinal: Present: soft - Genitourinary Genitourinary Comment(s): Clear urine nephrostomy and bladder - Musculoskeletal Musculoskeletal: Present: generalized weakness Assessment and Plan Assessment: Impression: Postoperative day percutaneous nephrostolithotomy right. Recommendations: The patient will continue with recuperation. We'll encourage ambulation and continue with slow recuperation of her diet. I anticipate discharge home in the next 24-48 hours. Secondary nephrostolithotomy which has been discussed at length with the patient will be performed through the established nephrostomy track next week on .
[2023-11-19] MEDS: NYSTATIN 100,000 UNIT/GM POWD 15 GM TOPICAL SCH ×2 (08:58→19:58)
[2023-11-19] MEDS: CIPROFLOXACIN HCL 500 MG TAB PO SCH ×2 (08:58→19:58)
[2023-11-19] MEDS: ALPRAZolam 0.5 MG TAB PO PRN (09:12)
[2023-11-19] MEDS: ONDANSETRON 4 MG/2 ML VIAL IVP PRN (17:38)
[2023-11-20] MEDS: DEXTROSE 5%-0.45% NACL 1,000 ML IV SCH ×2 (00:50→15:18)
[2023-11-20] MEDS: ALPRAZolam 0.5 MG TAB PO PRN (04:32)
[2023-11-20] MEDS ORDERED: DILTIAZEM DRIP BOLUS FROM BAG 1 MG SOLN IV ONE (04:58)
[2023-11-20] MEDS ORDERED: DILTIAZEM 125 MG in SODIUM CHLORIDE 0.9% 100 ML IV SCH (05:00)
[2023-11-20] MEDS: LACTATED RINGERS 1,000 ML IV SCH (05:46)
--- NOTE | 2023-11-20 09:31 | P.PN ---
Subjective Progress Note Date: 11/20/23 Patient is in her third postoperative day from a right percutaneous nephrostolithotomy, incomplete. He has slowly been progressing and would've been ready to be discharged home today but went into atrial fibrillation last night. According the patient she has been having some questionable cardiac issues and had been on metoprolol and stopped it due to effects. She wasn't distinctly diagnosed with A. fib but it sounds as if she may have been starting to have problems. Weekly she feels well. She is on Cardizem. I'm holding her anticoagulation as I do have to do a secondary percutaneous nephrostolithotomy next week. Objective - Vital Signs Vital signs: Vital Signs Temp 99 F 11/20/23 08:00 Pulse 96 11/20/23 09:00 Resp 18 11/20/23 09:00 BP 115/63 11/20/23 09:00 Pulse Ox 92 L 11/20/23 09:00 FiO2 Intake & Output 11/19/23 11/20/23 11/20/23 18:59 06:59 18:59 Intake Total 118 Output Total 475 900 Balance -357 -900 Intake: Oral 118 Output: Urine 475 900 Other: Voiding Method Indwelling Catheter Indwelling Catheter # Bowel Movements 0 - Cardiovascular Rhythm: irregularly irregular - Gastrointestinal Gastrointestinal Comment(s): Soft and nontender - Genitourinary Genitourinary Comment(s): Light tea-colored urine Assessment and Plan Assessment: Impression: Status post percutaneous nephrostolithotomy right incomplete. No onset atrial fibrillation Recommendations: Cardiology has been consult would in that started Cardizem. I want to hold anticoagulation until her surgery next week. Clinically she is stable. I will discontinue her Echols later today as well as her IV fluids based on cardiology's recommendations. I wish to hold anticoagulation for now. She is still scheduled for a secondary percutaneous nephrostolithotomy next week
[2023-11-20] MEDS: CIPROFLOXACIN HCL 500 MG TAB PO SCH (09:58)
[2023-11-20] MEDS: NYSTATIN 100,000 UNIT/GM POWD 15 GM TOPICAL SCH ×2 (10:00→19:53)
[2023-11-20] MEDS ORDERED: traMADol 50 MG TAB PO PRN (10:15)
[2023-11-20] MEDS ORDERED: METOPROLOL SUCCINATE (ER) 25 MG TAB.ER.24H PO STA (11:38)
[2023-11-20] MEDS ORDERED: METOPROLOL TARTRATE 25 MG TAB PO STA (11:49)
[2023-11-20 12:00] LABS: Basophils % (A) 0 %; Eosinophils # (A) 0.1 k/uL (0-0.7); Eosinophils % (A) 1 %; HGB 12.5 gm/dL (11.4-16.0); Hypochromasia Slight; Lymphocytes # (A) 1.4 k/uL (1.0-4.8); Lymphocytes % (A) 15 %; MCH 31.2 pg (25.0-35.0); MCHC 31.4 g/dL (31.0-37.0); MCV 99.5 fL (80.0-100.0); Mean Platelet Volume 9.2; Monocytes # (A) 0.9 k/uL (0-1.0); Monocytes % (A) 10 %; Neutrophils # (A) 6.8 k/uL (1.3-7.7); Neutrophils % (A) 72 %; Platelet Count 198 k/uL (150-450); RBC 4.02 m/uL (3.80-5.40); RDW 13.4 % (11.5-15.5); WBC 9.4 k/uL (3.8-10.6)
[2023-11-20 12:19] LABS: ALT 11 U/L (4-34); AST 19 U/L (14-36); African American GFR (CKD) 42 (>60 ml/min/1.73 sqM); Alkaline Phosphatase 73 U/L (38-126); Anion Gap 11 mmol/L; Blood Urea Nitrogen 28 mg/dL (7-17); Calcium 8.6 mg/dL (8.4-10.2); Carbon Dioxide 22 mmol/L (22-30); Chloride 104 mmol/L (98-107); Glucose 86 mg/dL (74-99); Magnesium 1.9 mg/dL (1.6-2.3); Non-African American GFR(CKD) 37 (>60 ml/min/1.73 sqM); Potassium 4.4 mmol/L (3.5-5.1); Sodium 137 mmol/L (137-145); Total Bilirubin 0.8 mg/dL (0.2-1.3)
[2023-11-20 12:25] LABS: NT-Pro-B-Type Natriuretic Pept 2590 pg/mL
--- NOTE | 2023-11-20 13:19 | P.CRDCN ---
History of Present Illness Consult date: 11/20/23 History of present illness: HISTORY OF PRESENTING ILLNESS 83 year old female with no prior cardiovascular history was seen by Dr. Rogel as a part of preoperative evaluation for a bilateral kidney stone removal surgery. She had an outpatient nuclear stress test and an echocardiogram. She was given clearance for the surgery and patient underwent right renal nephrectomy with nephrolithotomy tube in place at this time. Postoperatively day 2 in the nighttime patient started having fluttering sensation in the chest along with not feeling good. She was found to be in atrial fibrillation with rapid ventricular response. Her initial ECG showed irregular pulse with a heart rate of 140 beats a minute. At this time on evaluating her she is in atrial fibrillation with a heart rate in 160s. She is currently on Cardizem drip 10 mg. Her labs were performed which showed hemoglobin of 12.5, WBC 9.4, platelets 198, BUN 28, creatinine 1.3, troponin 0.038. She is not on IV heparin drip. Surgery team has recommended not to start IV heparin as she still has a nephrolithostomy tube in place REVIEW OF SYSTEMS 14 point review of system is negative except what is mentioned above in HPI. PHYSICAL EXAMINATION Vital signs reviewed. Head: Normocephalic. Eyes: Sclerae nonicteric. Neck: Brisk carotid upstroke, no jugular venous distention. Lungs: Clear to auscultation. Heart: irregular rate and rhythm, S1-S2, no S3, no murmur or rub. Abdomen: tender in right lower quadrant, positive bowel sounds no organomegaly. Extremities: No edema, intact distal pulses. Neuro: Alert, oritented, no focal deficits ASSESSMENT New-onset atrial fibrillation with rapid ventricular response. Elevated [id number] score Symptomatic atrial ablation with palpitations Bilateral renal stones status post right renal nephrolithostomy 11/17/23 ROJAS PLAN Increase Cardizem drip to 15 m/h , start metoprolol 25 mg twice a day, obtain limited echocardiogram. Transferred to 3 S. floor. Obtain limited echocardiogram. Start Amiodarone drip 1mg/hr for 6 hr and after 6 hr reduce to 0.5 mg/hr. Patient is not on anticoagulation at this time. We will touch base with surgery team and see if it's okay to start anticoagulation, Past Medical History Past Medical History: Hyperlipidemia Additional Past Medical History / Comment(s): Current kidney stones. 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 History of Any Multi-Drug Resistant Organisms: None Reported Past Surgical History: Bariatric Surgery, Hysterectomy, Joint Replacement, Orthopedic Surgery, Tonsillectomy Additional Past Surgical History / Comment(s): IVC FILTER RIGHT GROIN, GASTRIC BYPASS (NOV 2009) AND 9 DAYS LATER SURGERY FOR BOWEL OBSTRUCTION, BILATERAL KNEE REPLACEMENTS, CYST REOVED FROM LEFT WRIST, RIGHT ROTATOR CUFF REPAIR, right hip replacement. Past Anesthesia/Blood Transfusion Reactions: No Reported Reaction, Motion Sickness Additional Past Anesthesia/Blood Transfusion Reaction / Comment(s): no problems with prior blood transfusion Past Psychological History: Anxiety Additional Psychological History / Comment(s): Some anxiety when son was sick and and when lost her 06/25/23. Smoking Status: Never smoker Past Alcohol Use History: None Reported Past Drug Use History: None Reported - Past Family History Son(s) Family Medical History: Cancer Mother Family Medical History: Cancer Additional Family Medical History / Comment(s): OVARIAN Cancer. Sister(s) Family Medical History: Cancer Additional Family Medical History / Comment(s): 2 sisters had cancer(breast,lung). Brother(s) Family Medical History: Cancer Additional Family Medical History / Comment(s): BONE CANCER. Medications and Allergies Home Medications Medication Instructions Recorded Confirmed Type Multivitamins, Thera [Theragran] 2 tab PO DAILY 11/11/15 11/17/23 History Vit C/E/Zn/Coppr/Lutein/Zeaxan 2 cap PO BID 12/01/22 11/17/23 History [Preservision Areds 2 Softgel] Allergies Allergy/AdvReac Type Severity Reaction Status Date / Time latex Allergy Severe Swelling Verified 11/17/23 09:05 of Lips povidone-iodine Allergy Unknown Rash/Hives/ Verified 11/17/23 09:05 [From Betadine] itching soap [From Betadine] Allergy Unknown Rash/Hives Verified 11/17/23 09:05 hydrocodone [From [place]] Allergy Itching Verified 11/17/23 09:05 sulfamethoxazole Allergy Rash/Hives Verified 11/17/23 09:05 [From Bactrim] trimethoprim [From Bactrim] Allergy Rash/Hives Verified 11/17/23 09:05 NSAIDS (Non-Steroidal AdvReac Unknown HX OF Verified 11/17/23 09:05 Anti-Inflamma STOMACH ULCER ondansetron [From Zofran] AdvReac Nausea & Verified 11/17/23 09:05 Vomiting Physical Exam Vitals: Vital Signs Temp Pulse Resp BP BP Pulse Ox 11/20/23 12:42 118 H 11/20/23 12:14 18 110/74 92 L 11/20/23 09:30 141 H 18 124/85 92 L 11/20/23 09:00 96 18 115/63 92 L 11/20/23 08:30 18 93/59 92 L 11/20/23 08:00 99 F 71 18 104/73 90 L 11/20/23 05:35 129 H 129/90 11/20/23 05:30 119 H 138/76 11/20/23 05:27 70 136/98 11/20/23 02:00 99.1 F 117 H 18 144/77 92 L 11/19/23 20:00 98.1 F 99 16 149/72 92 L 11/19/23 15:00 97.8 F 97 19 153/70 93 L Intake and Output 11/19/23 11/20/23 11/20/23 22:59 06:59 14:59 Output Total 900 Balance -900 Output: Urine 900 Other: Voiding Method Indwelling Catheter Indwelling Catheter Indwelling Catheter # Bowel Movements 0 Results 11/20/23 11:40 11/20/23 11:40 Cardiac Enzymes 11/20/23 11/20/23 Range/Units 11:40 11:40 AST 19 (14-36) U/L Troponin I 0.038 H* (0.000-0.034) ng/mL CBC 11/20/23 Range/Units 11:40 WBC 9.4 (3.8-10.6) k/uL RBC 4.02 (3.80-5.40) m/uL Hgb 12.5 (11.4-16.0) gm/dL Hct 40.0 (34.0-46.0) % Plt Count 198 (150-450) k/uL Comprehensive Metabolic Panel 11/20/23 Range/Units 11:40 Sodium 137 (137-145) mmol/L Potassium 4.4 (3.5-5.1) mmol/L Chloride 104 (98-107) mmol/L Carbon Dioxide 22 (22-30) mmol/L BUN 28 H (7-17) mg/dL Creatinine 1.34 H (0.52-1.04) mg/dL Glucose 86 (74-99) mg/dL Calcium 8.6 (8.4-10.2) mg/dL AST 19 (14-36) U/L ALT 11 (4-34) U/L Alkaline Phosphatase 73 (38-126) U/L Total Protein 6.0 L (6.3-8.2) g/dL Albumin 3.0 L (3.5-5.0) g/dL Current Medications Generic Name Dose Route Start Last Admin Trade Name Freq PRN Reason Stop Dose Admin Acetaminophen 650 mg 11/17/23 13:16 Acetaminophen Tab 325 Mg Tab PO 12/17/23 13:17 Q4HR PRN Fever and/ or Pain Al Hydroxide/Mg Hydroxide 30 ml 11/17/23 13:16 Mag Hydrox/Al Hydrox/Simeth 30 Ml Cup PO 12/17/23 13:17 QID PRN Indigestion Alprazolam 0.5 mg 11/18/23 19:49 11/20/23 04:32 Alprazolam 0.5 Mg Tab PO 0.5 mg DAILY PRN Administration Anxiety Ciprofloxacin 500 mg 11/17/23 21:00 11/20/23 09:58 Ciprofloxacin Hcl 500 Mg Tab PO 12/17/23 21:01 500 mg BID CRISTY Administration Protocol Lactated Ringer's 1,000 mls @ 20 mls/hr 11/17/23 06:25 11/20/23 05:46 Lactated Ringers IV 12/17/23 06:26 Not Given .Q24H CRISTY Dextrose/Sodium Chloride 1,000 mls @ 100 mls/hr 11/17/23 13:30 11/20/23 00:50 Dextrose 5%-1/2ns Iv Soln IV 12/17/23 13:31 Not Given .Q10H CRISTY Diltiazem HCl 125 mg/ Sodium 125 mls @ 10 mls/hr 11/20/23 05:00 11/20/23 05:09 Chloride IV 10 mg/hr .[id number] CRISTY 10 mls/hr Administration 10 MG/HR Diltiazem HCl 125 mg/ Sodium 125 mls @ 15 mls/hr 11/20/23 13:00 Chloride IV .Q8H20M CRISTY 15 MG/HR Lidocaine HCl 0.1 ml 11/17/23 06:25 11/17/23 09:55 Lidocaine 1% (10mg/Ml) For Iv Start INTRADERMA 12/17/23 06:26 0.1 ml PER PROTOCOL PRN Administration IV Start Naloxone HCl 0.2 mg 11/17/23 13:17 Naloxone 0.4 Mg/Ml 1 Ml Vial IV 12/17/23 13:18 Q2M PRN Opioid Reversal Nystatin 1 applic 11/18/23 09:00 11/20/23 10:00 Nystatin 100,000 Unit/Gm Powd 15 Gm TOPICAL 1 applic BID CRISTY Administration Protocol Ondansetron HCl 4 mg 11/17/23 13:16 11/19/23 17:38 Ondansetron 4 Mg/2 Ml Vial IVP 12/17/23 13:17 4 mg Q6HR PRN Administration Nausea And Vomiting Tramadol HCl 50 mg 11/20/23 10:15 Tramadol 50 Mg Tab PO QID PRN Pain Intake and Output 11/19/23 11/20/23 11/20/23 22:59 06:59 14:59 Output Total 900 Balance -900 Output: Urine 900 Other: Voiding Method Indwelling Catheter Indwelling Catheter Indwelling Catheter # Bowel Movements 0 11/20/23 11:40 11/20/23 11:40
[2023-11-20] MEDS ORDERED: AMIODARONE 360 MG in DEXTROSE 5% IN WATER 200 ML IV ONE ×2 (14:30)
[2023-11-20] MEDS: ONDANSETRON 4 MG/2 ML VIAL IVP PRN (14:52)
[2023-11-20] MEDS: DILTIAZEM 125 MG in SODIUM CHLORIDE 0.9% 100 ML IV SCH ×2 (15:01→22:32)
--- NOTE | 2023-11-20 19:05 | CA ---
Transthoracic Echo Report Name: Aline Pascal Age: 83 Gender: F : 1940 Exam Date: 11/20/2023 13:58 Exam Location: [facility] Ht (in): 64 Wt (lb): 210 Ordering Physician: Ernie Russo MD ([email or web address]) Attending/Referring Phys: Superintendent Building Cleeste Sam RDCS Procedure CPT: Indications: Afib with RVR Cardiac Hx: limited study Technical Quality: Fair Contrast 1: Total Dose (mL): Contrast 2: Total Dose (mL): MEASUREMENTS (Male / Female) Normal Values 2D ECHO LV Diastolic Volume MOD BP 75.3 cm??? 67 - 155 / 56 - 104 cm??? LV Systolic Volume MOD BP 35.9 cm??? 22 - 58 / 19 - 49 cm??? LV Ejection Fraction MOD BP 52.3 % >= 55 % LV Cardiac Index MOD BP 1973.2 cm???/min???m??? LV Diastolic Volume MOD 4C 68.1 cm??? LV Systolic Volume MOD 4C 41.8 cm??? LV Ejection Fraction MOD 4C 38.6 % LV Cardiac Index MOD 4C 1316.7 cm???/min???m??? LV Diastolic Length 4C 7.4 cm LV Systolic Length 4C 6.9 cm LV Diastolic Volume MOD 2C 72.6 cm??? LV Systolic Volume MOD 2C 25.8 cm??? LV Ejection Fraction MOD 2C 64.5 % LV Cardiac Index MOD 2C 2344.2 cm???/min???m??? LV Diastolic Length 2C 7.5 cm LV Systolic Length 2C 6.1 cm DOPPLER TR Peak Velocity 236.4 cm/s TR Peak Gradient 22.3 mmHg Right Ventricular Systolic Press 27.3 mmHg FINDINGS Left Ventricle Left ventricular ejection fraction is estimated at 50-55 %. Right Ventricle Right ventricular systolic pressure within normal limits. Right Atrium Left Atrium Mitral Valve Mitral valve thickened. Mild mitral annular calcification. No mitral stenosis, regurgitation or prolapse. Aortic Valve Trileaflet aortic valve. Aortic valve sclerosis. Tricuspid Valve Structurally normal tricuspid valve. Mild tricuspid regurgitation. Pulmonic Valve Pulmonic valve not well visualized. No pulmonic regurgitation. Pericardium No pericardial effusion. Aorta CONCLUSIONS Limited echocardiogram LVEF 50-55%. Estimation is limited because of rapid A. fib No obvious regional wall motion abnormality Moderate LA dilatation Mild mitral regurgitation with no stenosis or regurgitation Aortic valve sclerosis but no stenosis No pericardial effusion Previewed by: Dr Ernie Russo (Electronically Signed) Final Date: 20 November 2023 19:05
[2023-11-20] MEDS ORDERED: AMIODARONE 450 MG in DEXTROSE 5% IN WATER 250 ML IV SCH ×2 (20:30)
[2023-11-21] MEDS ORDERED: CIPROFLOXACIN HCL 500 MG TAB PO SCH (09:00)
[2023-11-21] MEDS ORDERED: METOPROLOL TARTRATE 25 MG TAB PO SCH (09:00)
[2023-11-21] MEDS: DEXTROSE 5%-0.45% NACL 1,000 ML IV SCH (09:25)
[2023-11-21] MEDS: LACTATED RINGERS 1,000 ML IV SCH (09:25)
[2023-11-21] MEDS: NYSTATIN 100,000 UNIT/GM POWD 15 GM TOPICAL SCH (09:28)
--- NOTE | 2023-11-21 09:29 | P.PN ---
Subjective Progress Note Date: 11/21/23 The patient is status post right percutaneous nephrostolithotomy, incomplete. Her recuperation has been slow. She went into A. fib yesterday but has converted back to normal sinus rhythm. She has a secondary nephrostolithotomy scheduled for Objective - Vital Signs Vital signs: Vital Signs Temp 98.0 F 11/20/23 14:15 Pulse 81 11/21/23 03:49 Resp 18 11/21/23 03:49 BP 107/63 11/21/23 03:49 Pulse Ox 91 L 11/21/23 03:49 FiO2 Intake & Output 11/20/23 11/21/23 11/21/23 18:59 06:59 18:59 Intake Total 315.167 Output Total 450 200 Balance -450 115.167 Intake: Intake, IV Titration 75.167 Amount Diltiazem 125 mg In 75.167 Sodium Chloride 0.9% 100 ml @ 10 MG/HR 10 mls/hr IV .[id number] [facility] Rx#: [id number] Oral 240 Output: Drainage 75 Right Back 75 Urine 375 200 Other: Voiding Method Indwelling Catheter Indwelling Catheter - Labs CBC & Chem 7: 11/20/23 11:40 11/20/23 11:40 Labs: Abnormal Lab Results - Last 24 Hours (Table) 11/20/23 11/20/23 11/20/23 Range/Units 11:40 11:40 15:04 BUN 28 H (7-17) mg/dL Creatinine 1.34 H (0.52-1.04) mg/dL Troponin I 0.038 H* 0.058 H* (0.000-0.034) ng/mL Total Protein 6.0 L (6.3-8.2) g/dL Albumin 3.0 L (3.5-5.0) g/dL Assessment and Plan Assessment: Impression: Status post percutaneous nephrostolithotomy right incomplete. Atrial fibrillation, controlled and converted. Recommendations: I will discontinue her catheter. From urologic standpoint she can be discharged home. She is scheduled for for secondary nephrostolithotomy. I do not want blood thinners until after surgery.
[2023-11-21 10:35] VITALS: TEMP 97.5
[2023-11-21 12:51] VITALS: BP 116/64; PULSE 72; RESP 17
--- NOTE | 2023-11-21 15:45 | P.DS ---
Providers Date of admission: 11/18/23 14:02 Attending physician: Zafar Villegas Consults: 11/20/23 04:47 Consult Physician Routine Consulting Provider: Alexandre Ball Consult Reason/Comments: new onset afib rvr Do you want consulting provider notified?: Yes, Notify in am Primary care physician: Jackie Perez [facility] Course: 83 yo female admitted to the hospital 11/17/2023 for a right pcnl She underwent this but the surgery was incomplete. Her post op course was slow due to some, pain and subsequent atr.ial fibrillation. SHe was seen by cardiology and fortunately converted back to sinus rhythm. She will be discharged home today with the nephrostomy tube. She is set up for a secondary pcnl on 11/25/2023. Her condition is good. SHe will be given new meds by cardiology. We will contact her for fu next week. Patient Condition at Discharge: Good Plan - Discharge Summary Discharge Rx Participant: No New Discharge Prescriptions: New Ciprofloxacin HCl [Cipro] 500 mg PO BID 4 Days #8 tab Amiodarone [Cordarone] 200 mg PO DAILY #70 tab Metoprolol Tartrate 25 mg PO BID 30 Days #60 tab No Action Multivitamins, Thera [Multivitamin (formulary)] 2 tab PO DAILY Vit C/E/Zn/Coppr/Lutein/Zeaxan [Preservision Areds 2 Softgel] 2 cap PO BID Discharge Medication List Multivitamins, Thera [Multivitamin (formulary)] 2 tab PO DAILY 11/11/15 [History] Vit C/E/Zn/Coppr/Lutein/Zeaxan [Preservision Areds 2 Softgel] 2 cap PO BID 12/01/22 [History] Amiodarone [Cordarone] 200 mg PO DAILY #70 tab 11/21/23 [Rx] Ciprofloxacin HCl [Cipro] 500 mg PO BID 4 Days #8 tab 11/21/23 [Rx] Metoprolol Tartrate 25 mg PO BID 30 Days #60 tab 11/21/23 [Rx] Follow up Appointment(s)/Referral(s): [facility] [NON-STAFF] - 1 Week Jackie Perez MD [Primary Care Provider] - 1 Week Zafar Villegas MD [STAFF PHYSICIAN] - 1 Week (home with n tube. We have arranged for secondary pcnl on at 1130, 11/25/2023. Home with the nephrostomy tube) Patient Instructions/Handouts: Kidney Stones (DC), Echols Catheter Placement and Care (DC), Nephrostomy Tube Care (DC) Discharge Disposition: HOME SELF-CARE
== END 2023-11-21 16:15 | disposition home or self-care (01) ==
LOC: OR 07:56 → 6NMEDSUR 13:01 → OR 11-18 14:02 → 6NMEDSUR 11-18 14:02 → 3SCARD 11-20 14:02
PROVIDERS: ADMIT Urology; ATTEND Urology
DX: N20.0 Calculus of kidney (principal); R11.0 Nausea; I48.91 Unspecified atrial fibrillation; K21.9 Gastro-esophageal reflux disease without esophagitis; E78.5 Hyperlipidemia, unspecified; M19.90 Unspecified osteoarthritis, unspecified site; Z87.11 Personal history of peptic ulcer disease; Z87.442 Personal history of urinary calculi; Z90.710 Acquired absence of both cervix and uterus; Z96.653 Presence of artificial knee joint, bilateral; F41.9 Anxiety disorder, unspecified; Z98.84 Bariatric surgery status; Z96.643 Presence of artificial hip joint, bilateral; Z88.1 Allergy status to other antibiotic agents; Z91.040 Latex allergy status; Z88.2 Allergy status to sulfonamides; Z88.8 Allergy status to other drugs, medicaments and biological substances; Z91.048 Other nonmedicinal substance allergy status; Z80.41 Family history of malignant neoplasm of ovary; Z80.3 Family history of malignant neoplasm of breast; Z80.1 Family history of malignant neoplasm of trachea, bronchus and lung; Z80.8 Family history of malignant neoplasm of other organs or systems
CPT/HCPCS: 96376; 96365; 96366 ×2; 94760 ×2; 93308; 97162; 97166; 83880; 80053; 84443; 83735; 84484; 85025; 50432; 74018; G0378 ×5; C1769 ×4; C2628; C1729; C1894; J0330; J1100; J2710; J0282 ×2; J2405 ×3; J2001; J3010; J1580; J0290; J1170 ×2; J2704; Q9967; J1790

== ENCOUNTER 2023-11-25 09:44 | Day surgery (SDC) | payer MEDICARE ==
--- NOTE | 2023-11-24 12:48 | P.GSHP ---
History of Present Illness H&P Date: 11/24/23 83 yo female sp incomplete right pcnl last week who comes for a secondary pcnl thru the established n tube track. She had post op afib that converted to sinus with medications from cardiology. - Constitutional Constitutional: Denies chills, Denies fever - EENT Eyes: denies blurred vision, denies pain Ears, nose, mouth and throat: Denies headache, Denies sore throat - Cardiovascular Cardiovascular: Denies chest pain, Denies shortness of breath - Respiratory Respiratory: Denies cough, Denies 7 - Gastrointestinal Gastrointestinal: Denies abdominal pain, Denies diarrhea, Denies nausea, Denies vomiting - Genitourinary (Female) Genitourinary: Denies dysuria, Denies hematuria - Genitourinary (Male) Genitourinary: Denies dysuria, Denies hematuria - Musculoskeletal Musculoskeletal: Denies myalgias - Integumentary Integumentary: Denies pruritus, Denies rash - Neurological Neurological: Denies numbness, Denies weakness - Psychiatric Psychiatric: Denies anxiety, Denies depression - Endocrine Endocrine: Denies fatigue, Denies weight change Past Medical History Past Medical History: Atrial Fibrillation, Hyperlipidemia Additional Past Medical History / Comment(s): Current kidney stones. 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 ivc filter in 2009 ? dvt ? History of Any Multi-Drug Resistant Organisms: None Reported Past Surgical History: Bariatric Surgery, Hysterectomy, Joint Replacement, Orthopedic Surgery, Tonsillectomy Additional Past Surgical History / Comment(s): IVC FILTER RIGHT GROIN, GASTRIC BYPASS (NOV 2009) AND 9 DAYS LATER SURGERY FOR BOWEL OBSTRUCTION, BILATERAL KNEE REPLACEMENTS, CYST REOVED FROM LEFT WRIST, RIGHT ROTATOR CUFF REPAIR, right hip replacement. bibi cataract surgery Past Anesthesia/Blood Transfusion Reactions: No Reported Reaction, Motion Sickness Additional Past Anesthesia/Blood Transfusion Reaction / Comment(s): no problems with prior blood transfusion Smoking Status: Never smoker - Past Family History Son(s) Family Medical History: Cancer Mother Family Medical History: Cancer Additional Family Medical History / Comment(s): OVARIAN Cancer. Sister(s) Family Medical History: Cancer Additional Family Medical History / Comment(s): 2 sisters had cancer(breas t,lung). Brother(s) Family Medical History: Cancer Additional Family Medical History / Comment(s): BONE CANCER. Medications and Allergies Home Medications Medication Instructions Recorded Confirmed Type Multivitamins, Thera [Multivitamin 2 tab PO DAILY 11/11/15 11/23/23 History (formulary)] Vit C/E/Zn/Coppr/Lutein/Zeaxan 2 cap PO BID 12/01/22 11/23/23 History [Preservision Areds 2 Softgel] Amiodarone [Cordarone] 200 mg PO DAILY #70 tab 11/21/23 11/23/23 Rx Apixaban [Eliquis] 5 mg PO BID #60 tab 11/21/23 11/23/23 Rx Ciprofloxacin HCl [Cipro] 500 mg PO BID 4 Days #8 tab 11/21/23 11/23/23 Rx Metoprolol Tartrate 25 mg PO BID 30 Days #60 tab 11/21/23 11/23/23 Rx Allergies Allergy/AdvReac Type Severity Reaction Status Date / Time latex Allergy Severe Swelling Verified 11/23/23 08:48 of Lips povidone-iodine Allergy Unknown Rash/Hives/ Verified 11/23/23 08:48 [From Betadine] itching soap [From Betadine] Allergy Unknown Rash/Hives Verified 11/23/23 08:48 hydrocodone [From [place]] Allergy Itching Verified 11/23/23 08:48 sulfamethoxazole Allergy Rash/Hives Verified 11/23/23 08:48 [From Bactrim] trimethoprim [From Bactrim] Allergy Rash/Hives Verified 11/23/23 08:48 NSAIDS (Non-Steroidal AdvReac Unknown HX OF Verified 11/23/23 08:48 Anti-Inflamma STOMACH ULCER ondansetron [From Zofran] AdvReac Nausea & Verified 11/23/23 08:48 Vomiting Surgical - Exam - General well developed, well nourished, no distress - Eyes normal ocular movement, no icteric - ENT no hearing loss, no congestion - Neck no masses, trachea midline - Respiratory normal respiratory effort, clear to auscultation - Abdomen right nephrostomy tube Abdomen: soft, non tender, no guarding, no rigid, no rebound - Integumentary no rash, no abnormal pigmentation - Neurologic no disoriented, no combative - Psychiatric oriented to time, oriented to person, oriented to place, speech is normal, memory intact Assessment and Plan Assessment: Impression: retained right renal stones Plan: secondary nephrostolithotmy right
[~2023-11-25 09:44] MED LIST changes: -AMPICILLIN 1,000 MG in SODIUM CHLORIDE 0.9% 50 ML IVPB PRN; -GENTAMICIN 110 MG in SODIUM CHLORIDE 0.9% 100 ML IVPB PRN; -LIDOCAINE 1% (10MG/ML) FOR IV START INTRADERMA PRN; +MIDAZOLAM 2 MG/2 ML VIAL IV PRN; +ONDANSETRON 4 MG/2 ML VIAL IVP ONE; -droPERidol 5 MG/2 ML VIAL IVP ONE; +fentaNYL (PF) 50 MCG/ML 2 ML AMP IV PRN
--- NOTE | 2023-11-25 10:17 | XR ---
EXAMINATION TYPE: XR KUB DATE OF EXAM: 11/25/2023 9:59 AM CLINICAL INDICATION:Female, 83 years old with history of kidney stones; [facility] COMPARISON: 11/17/2023.. TECHNIQUE: One radiographic view of the abdomen was obtained. FINDINGS/IMPRESSION: 1. Nephrostomy tubing projects over the expected location of the right ureter and terminates in the distal right ureter. Multiple renal calculi noted on the right. 2. Calcific densities project over the left kidney likely relating to renal stones. 3. Surgical changes with IVC filter noted. 4. Right hip arthroplasty appears intact. 5. Multilevel degeneration changes of the spine.
[2023-11-25] MEDS: LACTATED RINGERS 1,000 ML IV SCH (10:57)
[2023-11-25 11:03] VITALS: TEMP 98.2
[2023-11-25] MEDS: DEXAMETHASONE SOD PHOSPHATE 4 MG/ML 1 ML VIAL IVP ONE (11:03)
[2023-11-25] MEDS: ONDANSETRON 4 MG/2 ML VIAL IVP ONE (11:03)
[2023-11-25] MEDS ORDERED: PROPOFOL 10 MG/ML 20 ML VIAL IV ONE (11:41)
[2023-11-25] MEDS ORDERED: LIDOCAINE 1% INJ 10MG/ML (20 ML MDV) ONE (11:41)
[2023-11-25] MEDS ORDERED: PHENYLEPHRINE-0.9% NACL SYG 1,000 MCG/10 ML SYRINGE ONE (11:41)
[2023-11-25] MEDS ORDERED: fentaNYL (PF) 50 MCG/ML 2 ML AMP ONE (11:41)
[2023-11-25] MEDS ORDERED: SUCCINYLCHOLINE CHLORIDE 200 MG/10 ML VIAL IV ONE (11:41)
[2023-11-25] MEDS: AMPICILLIN 1,000 MG in SODIUM CHLORIDE 0.9% 50 ML IVPB PRN (11:46)
[2023-11-25] MEDS: GENTAMICIN 100 MG in SODIUM CHLORIDE 0.9% 100 ML IVPB PRN (12:24)
--- NOTE | 2023-11-25 14:01 | P.OP ---
Date of Procedure: 11/25/23 Preoperative Diagnosis: Retained right renal calculi post percutaneous nephrostolithotomy right Postoperative Diagnosis: Same Procedure(s) Performed: Secondary nephrostolithotomy laser lithotripsy and stone basketing placement of 6 x 26 stent Anesthesia: ANNABEL Surgeon: Zafar Villegas Estimated Blood Loss (ml): 0 Pathology: other Condition: stable (Stone) Disposition: PACU Indications for Procedure: Patient is 83. She underwent a percutaneous nephrostolithotomy on the right side last week due to edema and swelling is unable to remove all the stone. She comes for secondary nephrostolithotomy Description of Procedure: Patient brought to the operating suite. Given a general anesthetic. On the transport gurney is a Echols catheters placed sterilely. She's placed in a prone position with care to airways and extremities. Through the established right nephrostomy tube and 035 wires passed down to the right ureter into the bladder. I removed the nephrostomy tube and passed the flexible nephroscope into the collecting system. I first go to the lower pole and identify several stones and require laser lithotripsy to break and remove. I then identify some small stones in the upper pole calyx that are removed. I then moved to the renal pelvis and break up the large stone remaining with laser lithotripsy and stone basketing. Due to significant edema in the amount of stone fragments a stent will be placed. Over the 035 wire a 6 x 26 catheters placed down into the bladder. The wires removed. Coils in the bladder in the right renal pelvis. The bladder the Echols catheter is removed. The patient is awakened and returned recovery room good condition. Blood loss is minimal. She'll be discharged home upon recovery.
[2023-11-25 15:00] VITALS: RESP 16
[2023-11-25 15:23] VITALS: BP 159/75; PULSE 66
--- NOTE | 2023-11-25 15:24 | FL ---
Fluoroscopy INDICATION: Pain FINDINGS: Fluoroscopy time: 1 minute 28 seconds. Total dose area product (DAP) in uGy*m?, mGy*cm? (or similar): 10.402 Images obtained: 8. IMPRESSION: 1. Documentation of fluoroscopy.
== END 2023-11-25 16:10 | disposition home or self-care (01) ==
LOC: OR 09:44
PROVIDERS: ATTEND Urology
DX: N20.0 Calculus of kidney (principal); E78.5 Hyperlipidemia, unspecified; I48.91 Unspecified atrial fibrillation; Z79.01 Long term (current) use of anticoagulants; Z88.5 Allergy status to narcotic agent; Z88.2 Allergy status to sulfonamides; Z88.6 Allergy status to analgesic agent; Z88.8 Allergy status to other drugs, medicaments and biological substances; Z91.040 Latex allergy status; Z98.84 Bariatric surgery status; Z87.442 Personal history of urinary calculi; Z88.1 Allergy status to other antibiotic agents; Z91.041 Radiographic dye allergy status
CPT/HCPCS: 52318; 50080; 82365; 74018; C2625; C1769 ×4; C2628; C1729; J0330; J1100; J2405; J2001; J3010; J1580; J0290; J2704; J2371

== ENCOUNTER → 2024-03-01 | Outpatient (CLI) | payer MEDICARE ==
--- NOTE | 2024-03-01 15:38 | XR ---
EXAMINATION TYPE: XR KUB DATE OF EXAM: 03/01/2024 HISTORY: Pain Comparison: 11/25/2023Single KUB is submitted for interpretation. Findings: Right renal calculi: Several 5 mm calculi overlie the right kidney. Right ureteral calculi: Calculi noted along the expected course of the right ureter with the largest measuring 7.2 mm transverse dimension. These calculi are noted within the mid right ureteral jet. Left renal calculi: 7 mm calculus mid to lower pole left kidney. Left ureteral calculi: None Visualized. Pelvic calcifications: Yes Bowel gas pattern is unremarkable. No free air. No mass effects. IMPRESSION: 1. As above
== END | disposition home or self-care (01) ==
LOC: RADXRMAIN 14:57
PROVIDERS: ATTEND Urology
DX: N20.2 Calculus of kidney with calculus of ureter (principal)
CPT/HCPCS: 74018

== ENCOUNTER → 2024-04-06 | Outpatient (CLI) | payer MEDICARE, OTHER ==
--- NOTE | 2024-04-06 11:55 | CT ---
EXAMINATION TYPE: CT abdomen pelvis wo con DATE OF EXAM: 04/06/2024 COMPARISON: 07/29/2023 HISTORY: post op lithotripsy, nausea and vomitting CT DLP: 777 mGycm Examination of the solid and hollow viscera is limited given the lack of contrast. FINDINGS: LUNG BASES: No evidence for nodule. No evidence for infiltrate. LIVER/GB: The gallbladder is unremarkable. No space-occupying hepatic lesion. PANCREAS: No pancreatic mass identified. No inflammatory process seen. SPLEEN: No evidence for splenomegaly. No intrasplenic lesions seen. ADRENALS: No adrenal nodules identified. No evidence for thickening. KIDNEYS: 7 day calculi right kidney measuring up to 6.8 mm upper pole right kidney. The left kidney d emonstrates approximately 14 calculi the largest within the lower pole measures 8.7 mm. Mild pelvic c aliectasis seen bilaterally without arnulfo hydronephrosis. No definite hydroureters. Limited evaluatio n urinary bladder demonstrate artifact from right hip prosthesis.Hyperdense lesion upper pole left ki dney likely reflects proteinaceous or hemorrhagic cyst. BOWEL: Nonvisualization of the appendix. No evidence of bowel obstruction. No inflammatory process. Lymph nodes: No evidence for adenopathy greater than 1 cm. Abdominal aorta: Atheromatous changes seen. No evidence for aneurysm. IVC filter noted. Genital organs: Hysterectomy changes. Other: No significant abnormality. IMPRESSION: 1. Bilateral nonobstructing nephrolithiasis. 2. Hyperdense lesion upper pole left kidney likely reflects proteinaceous or hemorrhagic cyst.
== END | disposition home or self-care (01) ==
LOC: RADCTMAIN 11:14
PROVIDERS: ATTEND Urology
DX: N20.0 Calculus of kidney (principal); N28.9 Disorder of kidney and ureter, unspecified
CPT/HCPCS: 74176

== ENCOUNTER → 2024-05-15 | Outpatient (CLI) | payer MEDICARE ==
--- NOTE | 2024-05-15 13:50 | XR ---
EXAMINATION TYPE: XR thoracic spine 2V DATE OF EXAM: 05/15/2024 CLINICAL HISTORY: pain TECHNIQUE: Frontal, lateral, and swimmer's view of thoracic spine are obtained. COMPARISON: None. FINDINGS: Curvature convex to the left. Moderate to severe multilevel degenerative disc space narrowi ng. No evidence for compression fracture or malalignment. IMPRESSION: No acute fracture or dislocation is seen in the thoracic spine. ICD 10 NO FRACTURE, INIT IAL EVALUATION
--- NOTE | 2024-05-15 13:51 | XR ---
EXAMINATION TYPE: XR lumbar spine 2 or 3V DATE OF EXAM: 05/15/2024 CLINICAL HISTORY: pain TECHNIQUE: Three views of the lumbar spine are submitted. COMPARISON: None. FINDINGS: Severe degenerative disc space narrowing lumbar spine with vacuum disc and endplate sclerosis. Ventra l and dorsal spondylosis. Moderate facet joint arthropathy. Alignment is within normal limits. Mild r otoscoliosis convex to the left. No fracture or bony lesion. IMPRESSION: No acute fracture or dislocation is seen in the lumbar spine. ICD 10 NO FRACTURE, INITIAL EVALUATION
== END | disposition home or self-care (01) ==
LOC: RADXRYALE 13:12
PROVIDERS: ATTEND Internal Medicine
DX: M54.51 Vertebrogenic low back pain (principal)
CPT/HCPCS: 72070; 72100

== ENCOUNTER → 2024-05-22 | Outpatient (CLI) | payer MEDICARE ==
--- NOTE | 2024-05-22 15:44 | XR ---
EXAMINATION TYPE: XR KUB DATE OF EXAM: 05/22/2024 Comparison: 03/01/2024 Clinical History: 84-year-old female N20.0 CALCULUS OF KIDNEY Findings: Lung bases are clear. No dilated small bowel loops. Moderate stool in the pelvis. A string of right abdominal calcification s measuring up to 7 mm in standing approximately 7 cm is redemonstrated without significant change. Partially visualized right total hip arthroplasty. Surgical clips left paramedian mid abdomen. IVC fi lter. Impression: Redemonstrated string of right mid abdominal calcifications spanning nearly 7 cm with individual calc ifications measuring up to 7 mm. Equivocal for ureteral stones versus gonadal vein phleboliths.
== END | disposition home or self-care (01) ==
LOC: RADXRMAIN 13:44
PROVIDERS: ATTEND Urology
DX: N20.0 Calculus of kidney (principal)
CPT/HCPCS: 74018

== ENCOUNTER 2024-07-24 14:15 | Observation (INO) | payer MEDICARE ==
--- NOTE | 2024-07-24 14:40 | ED ---
General Adult HPI - General Source: patient, RN notes reviewed, old records reviewed Mode of arrival: ambulatory Limitations: no limitations <Mykel Bailey - Last Filed: 07/24/24 15:44> <Tamika King - Last Filed: 07/25/24 01:34> - General Chief complaint: Abdominal Pain Stated complaint: Abdominal Pain Time Seen by Provider: 07/24/24 14:20 - History of Present Illness Initial comments: This is an 84-year-old female who presents to the emergency department complaining of right-sided back pain in the area of her kidney. Patient states in September she had multiple surgeries on her kidney for kidney stones. Patient states the pain has been on and off since she had the surgery but the last couple of days been quite significant and during the night she seems to be fine but when she gets up and moves around the pain is much worse. Patient denies any dysuria hematuria urinary frequency. Patient has any fever or chills. Patient has any trauma to the area. Patient denies any anterior abdom inal pain patient has nausea vomiting or diarrhea. (Mykel Bailey) - Related Data Home Medications Medication Instructions Recorded Confirmed Multivitamins, Thera [Multivitamin 1 tab PO DAILY 11/11/15 07/24/24 (formulary)] ALPRAZolam [Xanax] 0.5 mg PO BID 07/24/24 07/24/24 Omeprazole 20 mg PO DAILY 07/24/24 07/24/24 Prevagen 1 tab PO DAILY 07/24/24 07/24/24 atenoloL [Tenormin] 12.5 mg PO HS 07/24/24 07/24/24 traMADol HCL 50 mg PO DAILY PRN 07/24/24 07/24/24 Previous Rx's Medication Instructions Recorded Apixaban [Eliquis] 5 mg PO BID #60 tab 11/21/23 Allergies Allergy/AdvReac Type Severity Reaction Status Date / Time latex Allergy Severe Swelling Verified 07/24/24 18:35 of Lips povidone-iodine Allergy Unknown Rash/Hives/ Verified 07/24/24 18:35 [From Betadine] itching soap [From Betadine] Allergy Unknown Rash/Hives Verified 07/24/24 18:35 hydrocodone [From [place]] Allergy Itching Verified 07/24/24 18:35 sulfamethoxazole Allergy Rash/Hives Verified 07/24/24 18:35 [From Bactrim] trimethoprim [From Bactrim] Allergy Rash/Hives Verified 07/24/24 18:35 NSAIDS (Non-Steroidal AdvReac Unknown HX OF Verified 07/24/24 18:35 Anti-Inflamma STOMACH ULCER Review of Systems ROS Other: All systems not noted in ROS Statement are negative. <Mykel Bailey - Last Filed: 07/24/24 15:44> ROS Other: All systems not noted in ROS Statement are negative. <Tamika King - Last Filed: 07/25/24 01:34> ROS Statement: Those systems with pertinent positive or pertinent negative responses have been documented in the HPI. Past Medical History Past Medical History: Hyperlipidemia Additional Past Medical History / Comment(s): Current kidney stones. 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 History of Any Multi-Drug Resistant Organisms: None Reported Past Surgical History: Bariatric Surgery, Orthopedic Surgery Additional Past Surgical History / Comment(s): IVC FILTER RIGHT GROIN, GASTRIC BYPASS (NOV 2009) AND 9 DAYS LATER SURGERY FOR BOWEL OBSTRUCTION, BILATERAL KNEE REPLACEMENTS, CYST REOVED FROM LEFT WRIST, RIGHT ROTATOR CUFF REPAIR, right hip replacement. Past Anesthesia/Blood Transfusion Reactions: No Reported Reaction, Motion Sickness Additional Past Anesthesia/Blood Transfusion Reaction / Comment(s): no problems with prior blood transfusion Past Psychological History: Anxiety Smoking Status: Never smoker - Past Family History Son(s) Family Medical History: Cancer Mother Family Medical History: Cancer Additional Family Medical History / Comment(s): OVARIAN Cancer. Sister(s) Family Medical History: Cancer Additional Family Medical History / Comment(s): 2 sisters had cancer(breast,lung). Brother(s) Family Medical History: Cancer Additional Family Medical History / Comment(s): BONE CANCER. <Mykel Bailey - Last Filed: 07/24/24 15:44> General Exam Limitations: no limitations <Mykel Bailey - Last Filed: 07/24/24 15:44> - General Exam Comments Initial Comments: GENERAL: Patient is well-developed and well-nourished. Patient is nontoxic and well-hydr ated and is in mild distress. ENT: Neck is soft and supple. No significant lymphadenopathy is noted. Oropharynx is clear. Moist mucous membranes. Neck has full range of motion without eliciting any pain. EYES: The sclera were anicteric and conjunctiva were pink and moist. Extraocular movements were intact and pupils were equal round and reactive to light. Eyelids were unremarkable. PULMONARY: Unlabored respirations. Good breath sounds bilaterally. No audible rales rhonchi or wheezing was noted. CARDIOVASCULAR: There is a regular rate and rhythm without any murmurs gallops or rubs. ABDOMEN: Soft and nontender with normal bowel sounds. SKIN: Skin is clear with no lesions or rashes and otherwise unremarkable. NEUROLOGIC: Patient is alert and oriented x3. Cranial nerves II through XII are grossly intact. Motor and sensory are also intact. Normal speech, volume and content. Symmetrical smile. MUSCULOSKELETAL: Normal extremities with adequate strength and full range of motion. No lower extremity swelling or edema. No calf tenderness. Patient has mild CVA tendern ess in the right side LYMPHATICS: No significant lymphadenopathy is noted PSYCHIATRIC: Normal psychiatric evaluation. (Mykel Bailey) Course Vital Signs 07/24/24 07/24/24 07/24/24 14:17 17:19 21:34 Temperature 97.7 F Pulse Rate 68 58 L 59 L Respiratory 16 16 16 Rate Blood Pressure 155/78 135/64 124/71 O2 Sat by Pulse 99 99 98 Oximetry 07/24/24 22:29 Temperature 98.3 F Pulse Rate 66 Respiratory 16 Rate Blood Pressure 124/58 O2 Sat by Pulse 98 Oximetry Medical Decision Making - Lab Data Result diagrams: 07/24/24 14:57 07/24/24 14:57 <Mykel Bailey - Last Filed: 07/24/24 15:44> - Lab Data Result diagrams: 07/24/24 14:57 07/24/24 14:57 <Tamika King - Last Filed: 07/25/24 01:34> - Medical Decision Making Was pt. sent in by a medical professional or institution (, BILL, CHILD AND FAMILY SERVICES SPECIALIST, urgent care, hospital, or residential...) When possible be specific @ -[No] Did you speak to anyone other than the patient for history (EMS, parent, family, police, friend...)? What history was obtained from this source @ -[No] Did you review nursing and triage notes (agree or disagree)? Why? @ -[I reviewed and agree with nursing and triage notes] Were old charts reviewed (outside hosp., previous admission, EMS record, old EKG, old radiological studies, urgent care reports/EKG's, residential records)? Report findings @ -[No old charts were reviewed] Differential Diagnosis? @ -Urinary tract infection, pyelonephritis, kidney stone, lumbar strain, this is not an all-inclusive list EKG interpreted by me (3pts min.). @ -[As above] X-rays interpreted by me (1pt min.). @ -[None done] CT interpreted by me (1pt min.). @ -[None done] U/S interpreted by me (1pt. min.). @ -[None done] What testing was considered but not performed or refused? (CT, X-rays, U/S, labs)? Why? @ -[None] What meds were considered but not given or refused? Why? @ -[None] Did you discuss the management of the patient with other professionals (professionals i.e. , PA, CHILD AND FAMILY SERVICES SPECIALIST, lab, RT, psych nurse, secondary social studies teacher, x ray technologist, teacher, forest fire control officer, bilingual patient support caseworker)? Give summary @ -[No] Was smoking cessation discussed for >3mins.? @ -[No] Was critical care preformed (if so, how long)? @ -[No] Were there social determinants of health that impacted care today? How? (Homelessness, low income, unemployed, alcoholism, drug addiction, transportation, low edu. Level, literacy, decrease access to med. care, mcc, rehab)? @ -[No] Was there de-escalation of care discussed even if they declined (Discuss DNR or withdrawal of care, Hospice)? DNR status @ -[No] What co-morbidities impacted this encounter? (DM, HTN, Smoking, COPD, CAD, Cancer, CVA, ARF, Chemo, Hep., AIDS, mental health diagnosis, sleep apnea, morbid obesity)? @ -[None] Was patient admitted / discharged? Hospital course, mention meds given and route, prescriptions, significant lab abnormalities, going to OR and other pertinent info. @ -Patient was given Toradol for her pain. Patient will be signed out to Dr. King at 4 PM. (Mykel Bailey) @ -Hospital course Admitted, patient signed out to myself by Dr. Bailey at 4 PM pending urinalysis and CT read. Urinalysis did show large leukocyte esterase, 7 squamous cells, 32 white blood cells, no comment on any bacteria, negative nitrites. CT significant for left hydronephrosis and hydroureter without obvious obstructing lesion. On my reassessment patient states she is still in a significant amount of pain. She is tearful regarding persistence of pain. Though urine could be potentially contaminated, given large LE, 32 WBC, flank pain/ CVA TTP, will treat for pyelonephritis with cefepime and admit. Of note, right flank pain could be MSK in nature, as patient states it will worsen with after remaining seated for long periods of time and improve when reclined or laying down. Ordered zanaflex to trial for pain control. Patient agreeable plan for admission. Discussed with Dr. Morgan. who kindly accepted patient for admission. Undiagnosed new problem with uncertain prognosis? @ -No Drug Therapy requiring intensive monitoring for toxicity (Heparin, Nitro, Insu josefina, Cardizem)? @ -No Were any procedures done? @ -No Diagnosis/symptom? @ -Right flank pain, pyelonephritis Acute, or Chronic, or Acute on Chronic? @ -Acute Uncomplicated (without systemic symptoms) or Complicated (systemic symptoms)? @ -Uncomplicated Side effects of treatment? @ -No Exacerbation, Progression, or Severe Exacerbation? @ -No Poses a threat to life or bodily function? How? (Chest pain, [place], [place], pneumonia, PE, COPD, DKA, ARF, appy, cholecystitis, CVA, Diverticulitis, Homicidal, Justina cidal, threat to staff... and all critical care pts) @ -Potentially, if truly pyelonephritis, could progress to sepsis. (Tamika King) - Lab Data Lab Results 07/24/24 07/24/24 07/24/24 Range/Units 14:57 14:57 15:38 WBC 7.8 (3.8-10.6) k/uL RBC 3.79 L (3.80-5.40) m/uL Hgb 11.7 (11.4-16.0) gm/dL Hct 36.7 (34.0-46.0) % MCV 96.7 (80.0-100.0) fL MCH 30.8 (25.0-35.0) pg MCHC 31.8 (31.0-37.0) g/dL RDW 15.2 (11.5-15.5) % Plt Count 226 (150-450) k/uL MPV 9.4 Neutrophils % 54 % Lymphocytes % 32 % Monocytes % 6 % Eosinophils % 5 % Basophils % 1 % Neutrophils # 4.2 (1.3-7.7) k/uL Lymphocytes # 2.5 (1.0-4.8) k/uL Monocytes # 0.5 (0-1.0) k/uL Eosinophils # 0.4 (0-0.7) k/uL Basophils # 0.1 (0-0.2) k/uL Hypochromasia Moderate Sodium 138 (137-145) mmol/L Potassium 4.3 (3.5-5.1) mmol/L Chloride 106 (98-107) mmol/L Carbon Dioxide 27 (22-30) mmol/L Anion Gap 5 mmol/L BUN 27 H (7-17) mg/dL Creatinine 1.09 H (0.52-1.04) mg/dL Est GFR (CKD-EPI)AfAm 54 (>60 ml/min/1.73 sqM) Est GFR (CKD-EPI)NonAf 47 (>60 ml/min/1.73 sqM) Glucose 98 (74-99) mg/dL Calcium 9.1 (8.4-10.2) mg/dL Total Bilirubin 0.6 (0.2-1.3) mg/dL AST 32 (14-36) U/L ALT 20 (4-34) U/L Alkaline Phosphatase 82 (38-126) U/L Total Protein 6.8 (6.3-8.2) g/dL Albumin 3.7 (3.5-5.0) g/dL Amylase 57 (30-110) U/L Lipase 217 (23-300) U/L Urine Color Colorless Urine Appearance Cloudy H (Clear) Urine pH 5.5 (5.0-8.0) Ur Specific [place] 1.006 (1.001-1.035) Urine Protein Negative (Negative) Urine Glucose (UA) Negative (Negative) Urine Ketones Negative (Negative) Urine Blood Negative (Negative) Urine Nitrite Negative (Negative) Urine Bilirubin Negative (Negative) Urine Urobilinogen <2.0 (<2.0) mg/dL Ur Leukocyte Esterase Large H (Negative) Urine WBC 32 H (0-5) /hpf Ur Squamous Epith Cells 7 H (0-4) /hpf Amorphous Sediment Occasional H (None) /hpf Urine Mucus Rare H (None) /hpf Disposition <Mykel Bailey - Last Filed: 07/24/24 15:44> <Tamika King - Last Filed: 07/25/24 01:34> Clinical Impression: Pyelonephritis Disposition: ADMITTED IP TO THIS HOSP
[2024-07-24] MEDS: SODIUM CHLORIDE 0.9% 500 ML 500 ML IV STA (14:45)
[2024-07-24] MEDS: KETOROLAC 15 MG/ML 1 ML VIAL IVP STA (14:48)
[2024-07-24 15:09] LABS: Basophils # (A) 0.1 k/uL (0-0.2); Basophils % (A) 1 %; Eosinophils # (A) 0.4 k/uL (0-0.7); Eosinophils % (A) 5 %; HCT 36.7 % (34.0-46.0); HGB 11.7 gm/dL (11.4-16.0); Hypochromasia Moderate; Lymphocytes # (A) 2.5 k/uL (1.0-4.8); Lymphocytes % (A) 32 %; MCH 30.8 pg (25.0-35.0); MCHC 31.8 g/dL (31.0-37.0); MCV 96.7 fL (80.0-100.0); Mean Platelet Volume 9.4; Monocytes # (A) 0.5 k/uL (0-1.0); Monocytes % (A) 6 %; Neutrophils # (A) 4.2 k/uL (1.3-7.7); Neutrophils % (A) 54 %; Platelet Count 226 k/uL (150-450); RBC 3.79 m/uL (3.80-5.40); RDW 15.2 % (11.5-15.5); WBC 7.8 k/uL (3.8-10.6)
[2024-07-24 15:18] LABS: ALT 20 U/L (4-34); AST 32 U/L (14-36); African American GFR (CKD) 54 (>60 ml/min/1.73 sqM); Albumin 3.7 g/dL (3.5-5.0); Alkaline Phosphatase 82 U/L (38-126); Amylase 57 U/L (30-110); Anion Gap 5 mmol/L; Blood Urea Nitrogen 27 mg/dL (7-17); Calcium 9.1 mg/dL (8.4-10.2); Carbon Dioxide 27 mmol/L (22-30); Chloride 106 mmol/L (98-107); Glucose 98 mg/dL (74-99); Lipase 217 U/L (23-300); Non-African American GFR(CKD) 47 (>60 ml/min/1.73 sqM); Potassium 4.3 mmol/L (3.5-5.1); Sodium 138 mmol/L (137-145); Total Bilirubin 0.6 mg/dL (0.2-1.3); Total Protein 6.8 g/dL (6.3-8.2)
--- NOTE | 2024-07-24 15:48 | CT ---
EXAMINATION TYPE: CT abdomen pelvis wo con DATE OF EXAM: 07/24/2024 COMPARISON: 04/06/2024 INDICATION: left flank pain that radiates into the front/ recent kidney stones DLP: 887 mGycm, Automated exposure control for dose reduction was used. CONTRAST: 0 mL of Isovue 300. Study performed without Oral Contrast TECHNIQUE: Axial images were obtained from above the diaphragm to the pubic rami in the axial plane a t 5 mm thick sections. Reconstructed images are reviewed on the computer in the coronal plane. FINDINGS: Limited CT sections are obtained the lung bases. The lung bases are clear. Coronary artery calcific ation is present. CT ABDOMEN: Liver: Normal Spleen: Normal Pancreas: Normal Adrenal glands: The adrenal glands are normal. Gallbladder: Normal Kidneys: No masses are evident. No hydronephrosis is present. There is a hyperdense lesion from the posterior superior left kidney. Multiple bilateral nonobstructing renal stones are evident. There is some mild left hydronephrosis and minimal left hydroureter. Punctate calcification is in the left h emipelvis, a distal left ureteral stone at this level is not excluded. Multiple phleboliths are also present within the pelvis. This left lower quadrant calcification appears to be present previously wi thout hydronephrosis and hydroureter. Aorta: Vascular calcification is within the aorta. Some mild fusiform prominence is present. Inferior vena cava: Inferior vena cava filter is present CT PELVIS: Loops of bowel within the abdomen and pelvis are normal. Fecal debris is within the colon. The bill dy is lateral contrast limiting bowel evaluation. Appendix: Not identified. No dilated tubular structure or inflammatory changes evident. Urinary bladder: Limited due to beam hardening artifact from right hip prosthesis. Genitourinary structures: Uterus and adnexa appear within normal limits as visualized. Osseous structures: No suspicious lytic or sclerotic lesions. IMPRESSION: 1. Multiple nonobstructing bilateral renal stones. 2. There is some mild left hydronephrosis and hydroureter. Punctate calcification is in the left ngozi pelvis. No obstructing renal or ureteral stone is otherwise evident. There is limitation in the lower pelvis due to left hip prosthesis artifact
[2024-07-24 16:19] LABS: Amorphous Sediment,Urine Occasional /hpf; Appearance,Urine Cloudy (Clear); Bilirubin,Urine Negative (Negative); Blood,Urine Negative (Negative); Color,Urine Colorless; Glucose,Urine (UA) Negative (Negative); Ketones,Urine Negative (Negative); Leukocyte Esterase,Urine Large (Negative); Mucus,Urine Rare /hpf; Nitrite,Urine Negative (Negative); PH, Urine 5.5 (5.0-8.0); Protein,Urine Negative (Negative); Specific Gravity,Urine 1.006 (1.001-1.035); Squamous Epithelial Cell,Urine 7 /hpf (0-4); Urobilinogen,Urine <2.0 mg/dL (<2.0); WBC,Urine 32 /hpf (0-5)
[2024-07-24] MEDS: LIDOCAINE 4% PATCH TOPICAL ONE (17:20)
[2024-07-24] MEDS: tiZANidine 4 MG TAB PO PRN (17:24)
[2024-07-24] MEDS ORDERED: NALOXONE 0.4 MG/ML 1 ML VIAL IV PRN (18:23)
[2024-07-24] MEDS ORDERED: MAG HYDROX/AL HYDROX/SIMETH 30 ML CUP PO PRN (18:23)
[2024-07-24] MEDS ORDERED: CALCIUM CARBONATE 500 MG CHEWABLE PO PRN (18:23)
[2024-07-24] MEDS ORDERED: ONDANSETRON 4 MG/2 ML VIAL IVP PRN (18:23)
[2024-07-24] MEDS ORDERED: ACETAMINOPHEN TAB 325 MG TAB PO PRN (18:23)
[2024-07-24] MEDS: CEFEPIME 2 GM in SODIUM CHLORIDE 0.9% 100 ML IVPB STA (19:02)
[2024-07-24] MEDS: atenoloL 25 MG TAB PO SCH (20:44)
[2024-07-24] MEDS: APIXABAN 5 MG TAB PO SCH (20:44)
[2024-07-24] MEDS: FAMOTIDINE 20 MG TAB PO SCH (20:44)
[2024-07-24] MEDS: traMADol 50 MG TAB PO PRN (23:41)
[2024-07-25] MEDS: MULTIVITAMINS, THERA 1 EACH TAB PO SCH (08:03)
[2024-07-25] MEDS: FAMOTIDINE 20 MG TAB PO SCH (08:04)
--- NOTE | 2024-07-25 12:42 | P.CNOR ---
History of Present Illness - [facility] Consult date: 07/25/24 Requesting physician: Tamika King Consult reason: other (Right back pain, poss. MSK) History of present illness: Patient is an 84 old female who presents to the emergency department due to right-sided flank pain/back pain. Patient states in October 2023 she had multiple surgeries performed by Dr. Villegas on her kidneys due to kidney stones. Patient denies any falls/traumas over the past several months. Patient says the pain is mostly located on the right side of the back at the bottom of her rib cage and there is sometimes radiation to the front of her abdomen. She says she does live at home alone since her about a year ago. She states she thinks she has lost about 40 pounds. Patient says she is having a difficult time keeping any food down and says even when she has been trying to drink water it has been upsetting her stomach. Patient denies any fever/chills. Patient denies any urinary issues. Patient has no previous orthopedic surgical history. She states she has seen Dr. Le in the past for back pain. Past Medical History Past Medical History: Hyperlipidemia Additional Past Medical History / Comment(s): Current kidney stones. 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 History of Any Multi-Drug Resistant Organisms: None Reported Past Surgical History: Bariatric Surgery, Orthopedic Surgery Additional Past Surgical History / Comment(s): IVC FILTER RIGHT GROIN, GASTRIC BYPASS (NOV 2009) AND 9 DAYS LATER SURGERY FOR BOWEL OBSTRUCTION, BILATERAL KNEE REPLACEMENTS, CYST REOVED FROM LEFT WRIST, RIGHT ROTATOR CUFF REPAIR, right hip replacement. Past Anesthesia/Blood Transfusion Reactions: No Reported Reaction, Motion Sickness Additional Past Anesthesia/Blood Transfusion Reaction / Comm: no problems with prior blood transfusion Past Psychological History: Anxiety Additional Psychological History / Comment(s): Some anxiety when son was sick and and when lost her 06/25/23. Smoking Status: Never smoker Past Alcohol Use History: None Reported Past Drug Use History: None Reported - Past Family History Son(s) Family Medical History: Cancer Mother Family Medical History: Cancer Additional Family Medical History / Comment(s): OVARIAN Cancer. Sister(s) Family Medical History: Cancer Additional Family Medical History / Comment(s): 2 sisters had cancer(breast,lung). Brother(s) Family Medical History: Cancer Additional Family Medical History / Comment(s): BONE CANCER. Medications and Allergies Home Medications Medication Instructions Recorded Confirmed Type Multivitamins, Thera [Multivitamin 1 tab PO DAILY 11/11/15 07/24/24 History (formulary)] Apixaban [Eliquis] 5 mg PO BID #60 tab 11/21/23 07/24/24 Rx ALPRAZolam [Xanax] 0.5 mg PO BID 07/24/24 07/24/24 History Omeprazole 20 mg PO DAILY 07/24/24 07/24/24 History Prevagen 1 tab PO DAILY 07/24/24 07/24/24 History atenoloL [Tenormin] 12.5 mg PO HS 07/24/24 07/24/24 History traMADol HCL 50 mg PO DAILY PRN 07/24/24 07/24/24 History Allergies Allergy/AdvReac Type Severity Reaction Status Date / Time latex Allergy Severe Swelling Verified 07/24/24 18:35 of Lips povidone-iodine Allergy Unknown Rash/Hives/ Verified 07/24/24 18:35 [From Betadine] itching soap [From Betadine] Allergy Unknown Rash/Hives Verified 07/24/24 18:35 hydrocodone [From [place]] Allergy Itching Verified 07/24/24 18:35 sulfamethoxazole Allergy Rash/Hives Verified 07/24/24 18:35 [From Bactrim] trimethoprim [From Bactrim] Allergy Rash/Hives Verified 07/24/24 18:35 NSAIDS (Non-Steroidal AdvReac Unknown HX OF Verified 07/24/24 18:35 Anti-Inflamma STOMACH ULCER Physical Examination Negative for any open fractures, erythema, ecchymosis, open wounds. Hyperlordosis of the lumbar spine. Patient is equal, symmetric, bilateral intact throughout the upper and lower extremities on exam. There is moderate amount of tenderness to palpation over the upper right flank. Some very generalized minimal tenderness to palpation diffusely throughout the lumbar spine at midline. Patient does have good range of motion throughout bilateral upper and lower extremities on exam. 4/5 in all major motor groups in bilateral upper and lower extremities. Radial pulse intact, 2+ bilaterally. Cap refill under 3 seconds in digits of upper extremities. Negative Homans bilaterally. Negative clonus bilaterally. Results - Labs Labs: Abnormal Lab Results - Last 24 Hours (Table) 07/24/24 07/24/24 07/24/24 Range/Units 14:57 14:57 15:38 RBC 3.79 L (3.80-5.40) m/uL BUN 27 H (7-17) mg/dL Creatinine 1.09 H (0.52-1.04) mg/dL Urine Appearance Cloudy H (Clear) Ur Leukocyte Esterase Large H (Negative) Urine WBC 32 H (0-5) /hpf Ur Squamous Epith Cells 7 H (0-4) /hpf Amorphous Sediment Occasional H (None) /hpf Urine Mucus Rare H (None) /hpf H & H 07/24/24 Range/Units 14:57 Hgb 11.7 (11.4-16.0) gm/dL Hct 36.7 (34.0-46.0) % Result Diagrams: 07/24/24 14:57 07/24/24 14:57 - Diagnostic results Comments: CT of the abdomen pelvis is negative for any fractures throughout the spine. Evidence for degenerative disc disease as well as spondylosis throughout the spine. Assessment and Plan Assessment: 1. Right-sided flank pain; right upper quadrant pain; lumbar spo ndylosis/degenerative disc disease Plan: 1. Right-sided flank pain; right upper quadrant pain; lumbar spondylosis/degenerative disc disease - CT of the abdomen pelvis is negative for any fractures throughout the spine. Evidence for degenerative disc disease as well as spondylosis throughout the spine. I did review the findings of the imaging and exam with my attending, Dr. Pena. At this time we are not recommending any orthopedic surgical intervention. We do recommend conservative measures with the use of pain medication as needed. We have consulted general surgery and urology due to the flank pain and right upper quadrant pain. Patient may weight-bear as tolerated with walker and assistance as needed. Patient is okay to perform gentle range of motion exercises while resting in bed. From orthopedic standpoint, patient is stable for discharge. Patient may follow-up as needed for back pain. At this time orthopedics is signing off. Please do not hesitate to contact us for any further questions. 2. Appreciate medical, urology, general surgery management 3. Pain management -tizanidine; tramadol; Tylenol 4. DVT prophylaxis -Eliquis 5. GI prophylaxis -Pepcid 6. PT/OT -weightbearing as tolerated with walker and assistance as needed 7. Encourage incentive spirometer use 8. Appreciate consult Time with Patient: Less than 30
[2024-07-25] MEDS: ALPRAZolam 0.25 MG TAB PO PRN (13:46)
--- NOTE | 2024-07-25 14:15 | P.GSCN ---
History of Present Illness Consult date: 07/25/24 Reason for Consult: Right flank pain History of present illness: 84-year-old female came to the hospital complaining of pain in the right upper back/flank region. Patient with history of kidney stones. No recent trauma. Patient states after her most recent right kidney surgery she had an open wound on her back that lasted for several months. Patient describes frequent nausea and decreased satiety. Describes a 40 pound weight loss. Patient had gastric bypass in the past. Patient had a CAT scan performed demonstrating kidney stones and possible left ureteral lithiasis. Urology consulted and that is pending. Her urinalysis is apparently suspicious for urinary infection. CAT scan reviewed and shows mild gallbladder distention. No obvious stones or inflammatory changes present. Patient states she is considering leaving the ostal AMA at this time. Patient states she just passed a kidney stone again about 1 week ago.Most of her pain has resolved since admission. Review of Systems The patient denies any acute changes in vision or hearing, no dysphagia or odynophagia, no chest pain or shortness of breath, no headache, no runny nose, no rectal bleeding or melena Past Medical History Past Medical History: Hyperlipidemia Additional Past Medical History / Comment(s): Current kidney stones. 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 History of Any Multi-Drug Resistant Organisms: None Reported Past Surgical History: Bariatric Surgery, Orthopedic Surgery Additional Past Surgical History / Comment(s): IVC FILTER RIGHT GROIN, GASTRIC BYPASS (NOV 2009) AND 9 DAYS LATER SURGERY FOR BOWEL OBSTRUCTION, BILATERAL KNEE REPLACEMENTS, CYST REOVED FROM LEFT WRIST, RIGHT ROTATOR CUFF REPAIR, right hip replacement. Past Anesthesia/Blood Transfusion Reactions: No Reported Reaction, Motion Si ckness Additional Past Anesthesia/Blood Transfusion Reaction / Comm: no problems with prior blood transfusion Past Psychological History: Anxiety Additional Psychological History / Comment(s): Some anxiety when son was sick a nd and when lost her 06/25/23. Smoking Status: Never smoker Past Alcohol Use History: None Reported Past Drug Use History: None Reported - Past Family History Son(s) Family Medical History: Cancer Mother Family Medical History: Cancer Additional Family Medical History / Comment(s): OVARIAN Cancer. Sister(s) Family Medical History: Cancer Additional Family Medical History / Comment(s): 2 sisters had cancer(breast,lung). Brother(s) Family Medical History: Cancer Additional Family Medical History / Comment(s): BONE CANCER. Medications and Allergies Home Medications Medication Instructions Recorded Confirmed Type Multivitamins, Thera [Multivitamin 1 tab PO DAILY 11/11/15 07/24/24 History (formulary)] Apixaban [Eliquis] 5 mg PO BID #60 tab 11/21/23 07/24/24 Rx ALPRAZolam [Xanax] 0.5 mg PO BID 07/24/24 07/24/24 History Omeprazole 20 mg PO DAILY 07/24/24 07/24/24 History Prevagen 1 tab PO DAILY 07/24/24 07/24/24 History atenoloL [Tenormin] 12.5 mg PO HS 07/24/24 07/24/24 History traMADol HCL 50 mg PO DAILY PRN 07/24/24 07/24/24 History Allergies Allergy/AdvReac Type Severity Reaction Status Date / Time latex Allergy Severe Swelling Verified 07/24/24 18:35 of Lips povidone-iodine Allergy Unknown Rash/Hives/ Verified 07/24/24 18:35 [From Betadine] itching soap [From Betadine] Allergy Unknown Rash/Hives Verified 07/24/24 18:35 hydrocodone [From [place]] Allergy Itching Verified 07/24/24 18:35 sulfamethoxazole Allergy Rash/Hives Verified 07/24/24 18:35 [From Bactrim] trimethoprim [From Bactrim] Allergy Rash/Hives Verified 07/24/24 18:35 NSAIDS (Non-Steroidal AdvReac Unknown HX OF Verified 07/24/24 18:35 Anti-Inflamma STOMACH ULCER Surgical - Exam Vital Signs Temp Pulse Resp BP Pulse Ox 97.7 F 68 16 155/78 99 07/24/24 14:17 07/24/24 14:17 07/24/24 14:17 07/24/24 14:17 07/24/24 14:17 Physical exam: General: Well-developed, well-nourished HEENT: Normocephalic, sclerae nonicteric Abdomen: Mild right CVA tenderness, no abdominal tenderness, nondistended Extremities: No edema Neuro: Alert and oriented Results - Labs 07/24/24 14:57 07/24/24 14:57 Abnormal Lab Results - Last 24 Hours (Table) 07/24/24 07/24/24 07/24/24 Range/Units 14:57 14:57 15:38 RBC 3.79 L (3.80-5.40) m/uL BUN 27 H (7-17) mg/dL Creatinine 1.09 H (0.52-1.04) mg/dL Urine Appearance Cloudy H (Clear) Ur Leukocyte Esterase Large H (Negative) Urine WBC 32 H (0-5) /hpf Ur Squamous Epith Cells 7 H (0-4) /hpf Amorphous Sediment Occasional H (None) /hpf Urine Mucus Rare H (None) /hpf Diabetes panel 07/24/24 Range/Units 14:57 Sodium 138 (137-145) mmol/L Potassium 4.3 (3.5-5.1) mmol/L Chloride 106 (98-107) mmol/L Carbon Dioxide 27 (22-30) mmol/L BUN 27 H (7-17) mg/dL Creatinine 1.09 H (0.52-1.04) mg/dL Glucose 98 (74-99) mg/dL Calcium 9.1 (8.4-10.2) mg/dL AST 32 (14-36) U/L ALT 20 (4-34) U/L Alkaline Phosphatase 82 (38-126) U/L Total Protein 6.8 (6.3-8.2) g/dL Albumin 3.7 (3.5-5.0) g/dL Calcium panel 07/24/24 Range/Units 14:57 Calcium 9.1 (8.4-10.2) mg/dL Albumin 3.7 (3.5-5.0) g/dL Pituitary panel 07/24/24 Range/Units 14:57 Sodium 138 (137-145) mmol/L Potassium 4.3 (3.5-5.1) mmol/L Chloride 106 (98-107) mmol/L Carbon Dioxide 27 (22-30) mmol/L BUN 27 H (7-17) mg/dL Creatinine 1.09 H (0.52-1.04) mg/dL Glucose 98 (74-99) mg/dL Calcium 9.1 (8.4-10.2) mg/dL Adrenal panel 07/24/24 Range/Units 14:57 Sodium 138 (137-145) mmol/L Potassium 4.3 (3.5-5.1) mmol/L Chloride 106 (98-107) mmol/L Carbon Dioxide 27 (22-30) mmol/L BUN 27 H (7-17) mg/dL Creatinine 1.09 H (0.52-1.04) mg/dL Glucose 98 (74-99) mg/dL Calcium 9.1 (8.4-10.2) mg/dL Total Bilirubin 0.6 (0.2-1.3) mg/dL AST 32 (14-36) U/L ALT 20 (4-34) U/L Alkaline Phosphatase 82 (38-126) U/L Total Protein 6.8 (6.3-8.2) g/dL Albumin 3.7 (3.5-5.0) g/dL Assessment and Plan (1) Right flank discomfort Narrative/Plan: 84-year-old female with right flank pain. Etiology unclear. She says she was worried about her gallbladder when she came to the hospital because of a family history of gallbladder disease. Patient with history of previous gastric bypass and now describes several month history of nausea, intermittent vomiting, and early satiety. Patient will benefit from upper endoscopy at some point. This could be performed as an outpatient. Will order ultrasound gallbladder at this time. Await urology evaluation. Continue antibiotics for possible UTI. Current Visit: Yes Status: Acute Code(s): R10.9 - UNSPECIFIED ABDOMINAL PAIN SNOMED Code(s): 893626611
[2024-07-25] MEDS: LIDOCAINE 4% PATCH TOPICAL SCH (17:56)
--- NOTE | 2024-07-26 00:28 | P.HPIM ---
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 Patient presents to ER with complaints of right-sided mid back pain. Patient tried heat pad and took Tylenol yesterday but could not sleep for the past couple of days. Patient gets worse with getting up and moving around. Patient presents to ER due to pain not getting better. Otherwise denied any fever or chills. No dysuria or hematuria. No history of trauma. No fall. Denies any nausea vomiting abdominal pain or diarrhea. CT of the abdomen pelvis showed multiple nonobstructing bilateral renal stones. There is some mild left hydronephrosis and hydroureter. Punctate calcification in the left hemipelvis. No obstructing renal or atrial stone is otherwise evident. There is limitation in the lower pelvis due to left hip prosthesis artifact. Laboratory data showed WBC 7.8 hemoglobin 11.7 and platelets 226 sodium 138 potassium 4.3 chloride 106 bicarb is 27 BUN 27 creatinine 1.09. Liver enzymes are not reviewed. Urinalysis showed cloudy with large leukocyte esterase and elevated WBCs and squamous epithelial cells 7. Review of Systems Constitutional: Patient denies any fever or chills . No generalized weakness or weight loss. Abdomen: Patient denied nausea vomiting and diarrhea and abdominal pain. Cardiovascular: Patient denies any chest pain or short of breath no palpitations. Respiratory: patient denied any cough or sputum production. No shortness of breath Neurologic: Patient denied any numbness or tingling. no headache. Musculoskeletal: Patient denies any complaints of joint swelling or deformity. Back pain/flank pain Skin: Negative Psychiatric: Negative Endocrine: No heat or cold intolerance. No recent weight gain. Genitourinary: No dysuria or hematuria. All other 14 point ROS negative except the above Past Medical History Past Medical History: Hyperlipidemia Additional Past Medical History / Comment(s): Current kidney stones. 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 History of Any Multi-Drug Resistant Organisms: None Reported Past Surgical History: Bariatric Surgery, Orthopedic Surgery Additional Past Surgical History / Comment(s): IVC FILTER RIGHT GROIN, GASTRIC BYPASS (NOV 2009) AND 9 DAYS LATER SURGERY FOR BOWEL OBSTRUCTION, BILATERAL KNEE REPLACEMENTS, CYST REOVED FROM LEFT WRIST, RIGHT ROTATOR CUFF REPAIR, right hip replacement. Past Anesthesia/Blood Transfusion Reactions: No Reported Reaction, Motion Sick ness Additional Past Anesthesia/Blood Transfusion Reaction / Comment(s): no problems with prior blood transfusion Past Psychological History: Anxiety Additional Psychological History / Comment(s): Some anxiety when son was sick and and when lost her 06/25/23. Smoking Status: Never smoker Past Alcohol Use History: None Reported Past Drug Use History: None Reported - Past Family History Son(s) Family Medical History: Cancer Mother Family Medical History: Cancer Additional Family Medical History / Comment(s): OVARIAN Cancer. Sister(s) Family Medical History: Cancer Additional Family Medical History / Comment(s): 2 sisters had cancer(breast,lung). Brother(s) Family Medical History: Cancer Additional Family Medical History / Comment(s): BONE CANCER. Medications and Allergies Home Medications Medication Instructions Recorded Confirmed Type Multivitamins, Thera [Multivitamin 1 tab PO DAILY 11/11/15 07/24/24 History (formulary)] Apixaban [Eliquis] 5 mg PO BID #60 tab 11/21/23 07/24/24 Rx ALPRAZolam [Xanax] 0.5 mg PO BID 07/24/24 07/24/24 History Omeprazole 20 mg PO DAILY 07/24/24 07/24/24 History Prevagen 1 tab PO DAILY 07/24/24 07/24/24 History atenoloL [Tenormin] 12.5 mg PO HS 07/24/24 07/24/24 History traMADol HCL 50 mg PO DAILY PRN 07/24/24 07/24/24 History Allergies Allergy/AdvReac Type Severity Reaction Status Date / Time latex Allergy Severe Swelling Verified 07/24/24 18:35 of Lips povidone-iodine Allergy Unknown Rash/Hives/ Verified 07/24/24 18:35 [From Betadine] itching soap [From Betadine] Allergy Unknown Rash/Hives Verified 07/24/24 18:35 hydrocodone [From [place]] Allergy Itching Verified 07/24/24 18:35 sulfamethoxazole Allergy Rash/Hives Verified 07/24/24 18:35 [From Bactrim] trimethoprim [From Bactrim] Allergy Rash/Hives Verified 07/24/24 18:35 NSAIDS (Non-Steroidal AdvReac Unknown HX OF Verified 07/24/24 18:35 Anti-Inflamma STOMACH ULCER Physical Exam Vitals: Vital Signs Temp Pulse Pulse Resp BP BP Pulse Ox 07/25/24 07:00 97.9 F 63 16 159/74 97 07/25/24 01:41 98.4 F 59 L 16 148/78 97 07/24/24 23:36 98.1 F 57 L 18 146/86 99 07/24/24 22:29 98.3 F 66 16 124/58 98 07/24/24 21:34 59 L 16 124/71 98 07/24/24 17:19 58 L 16 135/64 99 Intake and Output 07/24/24 07/25/24 07/25/24 22:59 06:59 14:59 Intake Total 120 480 Balance 120 480 Intake: Oral 120 480 Other: Voiding Method Toilet # Voids 1 Weight 84.822 kg PHYSICAL EXAMINATION: Patient is lying in the bed comfortably, no acute distress, awake alert and oriented.. HEENT: Normocephalic. Neck is supple. Pupils reactive. Nostrils clear. Oral cavity is moist. Neck reveals no JVD, carotid bruits, or thyromegaly. CHEST EXAMINATION: Trachea is central. Symmetrical expansion. Lung mark clear to auscultation and percussion. Patient does have tenderness over the paraspinal region right upper back below scapula.. CARDIAC: Normal S1, S2 with no gallops. No murmurs ABDOMEN: Soft. Bowel sounds normal. No organomegaly. No abdominal bruits. Extremities: reveal no edema. No clubbing or cyanosis. Neurologically awake, alert, oriented x3 with well-coordinated movements. No focal deficits noted Skin: No rash or skin lesions. Psychiatric: Coperative. Nonsuicidal Musculoskeletal: No joint swelling or deformity. Normal range of motion. Results CBC & Chem 7: 07/24/24 14:57 07/24/24 14:57 Labs: Abnormal Lab Results - Last 24 Hours (Table) 07/24/24 07/24/24 07/24/24 Range/Units 14:57 14:57 15:38 RBC 3.79 L (3.80-5.40) m/uL BUN 27 H (7-17) mg/dL Creatinine 1.09 H (0.52-1.04) mg/dL Urine Appearance Cloudy H (Clear) Ur Leukocyte Esterase Large H (Negative) Urine WBC 32 H (0-5) /hpf Ur Squamous Epith Cells 7 H (0-4) /hpf Amorphous Sediment Occasional H (None) /hpf Urine Mucus Rare H (None) /hpf Thrombosis Risk Factor Assmnt - DVT/VTE Prophylaxis DVT/VTE Prophylaxis: Pharmacologic Prophylaxis ordered Assessment and Plan Assessment: Right flank pain with tenderness over the right posterior ribs. Different etiology not known at this time. Recent history of bilateral renal stones status post right renal nephrolithotomy on 11/17/2023 and secondary nephrolithotomy right laser lithotripsy and stone basketing and placement of 6 x 26 stent on 11/25/2023 due to retained right renal calculi. Follow urinary tract infection Paroxysmal atrial fibrillation on anticoagulation with Eliquis History of gastric bypass in November 2009 History of IVC filter placement to right groin History of peptic ulcer disease likely due to NSAID use several years ago Anxiety DVT prophylaxis heparin subcu Plan: Patient will be continued on IV hydration with normal saline. Continue with antibiotics ceftriaxone. With pain management with clonidine patch and heat pack. CT of the abdomen pelvis report as above. Ultrasound of the gallbladder was ordered to rule out etiology. General surgery and urology was consulted. Continue home medications and follow-up closely. Time with Patient: Greater than 30
[2024-07-26] MEDS: SODIUM CHLORIDE 0.9% 1,000 ML IV SCH (04:56)
[2024-07-26 07:22] VITALS: TEMP 98.3
--- NOTE | 2024-07-26 08:18 | US ---
EXAMINATION TYPE: US gallbladder DATE OF EXAM: 07/26/2024 COMPARISON: 07/24/2024 CT CLINICAL INDICATION: Female, 84 years old with history of Right flank pain; Hx renal stones. TECHNIQUE: Multiple sonographic images of the right upper quadrant are obtained. FINDINGS: EXAM MEASUREMENTS: Liver Length: 15.4 cm Gallbladder Wall: 0.2 cm CBD: 0.7 cm Right Kidney: 10.4 x 4.7 x 5.0 cm TWISTER OPERATOR NOTES:Suboptimal due to overlying bowel gas Pancreas: Obscured by bowel gas Liver: Limited visualization, no prominent masses or lesions seen Gallbladder: Upper limits of normal in size, no stones or wall thickening seen Evidence for sonographic Girard's sign: neg CBD: wnl Right Kidney: peripelvic anechoic lesions seen. Echogenic foci seen with largest upper - 0.6 cm and lower - 0.7 cm IMPRESSION: 1. No evidence for acute process. 2. Right Parapelvic renal cysts and nonobstructing calculi as seen on CT 07/24/2024.
[2024-07-26 08:49] LABS: Basophils # (A) 0.07 X 10*3/uL (0.00-0.10); Basophils % (A) 1.2 %; Eosinophils # (A) 0.42 X 10*3/uL (0.04-0.35); Eosinophils % (A) 7.2 %; HCT 31.7 % (37.2-46.3); HGB 9.9 g/dL (12.0-15.0); Lymphocytes # (A) 2.15 X 10*3/uL (0.90-5.00); Lymphocytes % (A) 36.7 %; MCH 30.4 pg (27.0-32.0); MCHC 31.2 g/dL (32.0-37.0); MCV 97.2 FL (80.0-97.0); Monocytes # (A) 0.81 X 10*3/uL (0.20-1.00); Monocytes % (A) 13.8 %; NRBC Per 100 WBC 0 X 10*3/uL (0.00-0.01); Neutrophils % (A) 40.9 %; Platelet Count 184 X 10*3/uL (140-440); RBC 3.26 X 10*6/uL (4.10-5.20); RDW 16.7 % (11.5-14.5); WBC 5.86 X 10*3/uL (4.50-10.00)
[2024-07-26 09:08] LABS: BUN/Creat Ratio 24.33 Ratio (12.00-20.00); Blood Urea Nitrogen 21.9 mg/dL (9.0-27.0); Calcium 8.4 mg/dL (8.7-10.3); Carbon Dioxide 22.9 mmol/L (21.6-31.8); Chloride 111 mmol/L (96-109); Glucose 91 mg/dL (70-110); Potassium 4.2 mmol/L (3.5-5.5); Sodium 142 mmol/L (135-145)
--- NOTE | 2024-07-26 11:28 | P.PN ---
Subjective Progress Note Date: 07/26/24 Principal diagnosis: Pain, nausea Patient feels better today. No pain currently. Ultrasound showed no gallbladder disease. Mild distention noted. Mild nausea earlier today. P atient is still anxious to go home. Objective - Vital Signs Vital signs: Vital Signs Temp 98.3 F 07/26/24 07:00 Pulse 73 07/26/24 07:00 Resp 16 07/26/24 07:00 BP 133/68 07/26/24 07:00 Pulse Ox 95 07/26/24 07:00 FiO2 Intake & Output 07/25/24 07/26/24 07/26/24 18:59 06:59 18:59 Intake Total 1440 236 Balance 1440 236 Intake: Oral 1440 236 Other: Voiding Method Toilet # Voids 3 2 - Exam Abdomen: Soft, nondistended, nontender - Labs CBC & Chem 7: 07/26/24 02:43 07/26/24 02:43 Labs: Abnormal Lab Results - Last 24 Hours (Table) 07/26/24 07/26/24 Range/Units 02:43 02:43 RBC 3.26 L (4.10-5.20) X 10*6/uL Hgb 9.9 L (12.0-15.0) g/dL Hct 31.7 L (37.2-46.3) % MCV 97.2 H (80.0-97.0) FL MCHC 31.2 L (32.0-37.0) g/dL RDW 16.7 H (11.5-14.5) % MPV 13.0 H (9.5-12.2) FL Eosinophils # 0.42 H (0.04-0.35) X 10*3/uL Chloride 111 H (96-109) mmol/L BUN/Creatinine Ratio 24.33 H (12.00-20.00) Ratio Calcium 8.4 L (8.7-10.3) mg/dL Assessment and Plan (1) Right flank discomfort Narrative/Plan: 84-year-old female with intractable nausea and some weight loss. Patient with history of previous gastric bypass. She and I discussed options of proceeding with upper endoscopy. She would like to have this performed as outpatient. Patient will contact office to schedule as outpatient. Will sign off for now. Please reconsult if needed. Stable for discharge. Current Visit: Yes Status: Acute Code(s): R10.9 - UNSPECIFIED ABDOMINAL PAIN SNOMED Code(s): 640091321
[2024-07-26 14:12] VITALS: BP 118/71; PULSE 100; RESP 17
== END 2024-07-26 15:13 | disposition home or self-care (01) ==
LOC: EC 14:15 → 6NMEDSUR 18:23
PROVIDERS: ADMIT Internal Medicine; ATTEND Internal Medicine
DX: N13.6 Pyonephrosis (principal); M47.816 Spondylosis without myelopathy or radiculopathy, lumbar region; M51.36 Other intervertebral disc degeneration, lumbar region; K82.8 Other specified diseases of gallbladder; E78.5 Hyperlipidemia, unspecified; I48.0 Paroxysmal atrial fibrillation; M19.90 Unspecified osteoarthritis, unspecified site; F41.9 Anxiety disorder, unspecified; Z79.01 Long term (current) use of anticoagulants; Z79.899 Other long term (current) drug therapy; Z88.6 Allergy status to analgesic agent; Z88.1 Allergy status to other antibiotic agents; Z91.040 Latex allergy status; Z88.5 Allergy status to narcotic agent; Z88.2 Allergy status to sulfonamides; Z88.8 Allergy status to other drugs, medicaments and biological substances; Z91.048 Other nonmedicinal substance allergy status; Z63.4 Disappearance and death of family member; Z98.84 Bariatric surgery status; Z87.11 Personal history of peptic ulcer disease; Z86.718 Personal history of other venous thrombosis and embolism; Z95.828 Presence of other vascular implants and grafts; Z87.442 Personal history of urinary calculi; N13.30 Unspecified hydronephrosis
CPT/HCPCS: 36415; 74176; 76705; 80048; 80053; 81001; 82150; 83690; 85025; 96365; 96367; 96375; 99285

== ENCOUNTER → 2024-11-16 | Day surgery (SDC) | payer MEDICARE ==
--- NOTE | 2024-07-26 20:09 | P.GSCN ---
History of Present Illness Consult date: 07/26/24 Reason for Consult: right Sided renal stone History of present illness: This is an 84-year-old female well-known patient to Dr. Villegas with history of recurrent kidney stones, had a percutaneous nephrolithotomy earlier this year by Dr. Villegas. Presented to the hospital with right sided posterior chest pain. Had a CT scan done in the emergency department that showed evidence of bilateral nonobstructive renal stones,there is also question some questionable small ureteral calculi in the right ureter, but no hydronephrosis appreciated on the right side. Her creatinine is at 0.9., Pain has subsequently improved since hospital admission. She indicated the pain is not similar to her kidney stones and she is not having any flank tenderness. Denies any gross hematuria or dysuria, indicated she has passed some small stones since her PCNL. Review of Systems - Constitutional Denies fever, Denies weight loss - Gastrointestinal Reports abdominal pain, Denies nausea, Denies vomiting - Neurological Denies headaches, Denies syncope Past Medical History Past Medical History: Hyperlipidemia Additional Past Medical History / Comment(s): Current kidney stones. 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 History of Any Multi-Drug Resistant Organisms: None Reported Past Surgical History: Bariatric Surgery, Orthopedic Surgery Additional Past Surgical History / Comment(s): IVC FILTER RIGHT GROIN, GASTRIC BYPASS (NOV 2009) AND 9 DAYS LATER SURGERY FOR BOWEL OBSTRUCTION, BILATERAL KNEE REPLACEMENTS, CYST REOVED FROM LEFT WRIST, RIGHT ROTATOR CUFF REPAIR, right hip replacement. Past Anesthesia/Blood Transfusion Reactions: No Reported Reaction, Motion Sickness Additional Past Anesthesia/Blood Transfusion Reaction / Comm: no problems with prior blood transfusion Past Psychological History: Anxiety Additional Psychological History / Comment(s): Some anxiety when son was sick and and when lost her 06/25/23. Smoking Status: Never smoker Past Alcohol Use History: None Reported Past Drug Use History: None Reported - Past Family History Son(s) Family Medical History: Cancer Mother Family Medical History: Cancer Additional Family Medical History / Comment(s): OVARIAN Cancer. Sister(s) Family Medical History: Cancer Additional Family Medical History / Comment(s): 2 sisters had cancer(breast,lung). Brother(s) Family Medical History: Cancer Additional Family Medical History / Comment(s): BONE CANCER. Medications and Allergies Home Medications Medication Instructions Recorded Confirmed Type Multivitamins, Thera [Multivitamin 1 tab PO DAILY 11/11/15 07/24/24 History (formulary)] Apixaban [Eliquis] 5 mg PO BID #60 tab 11/21/23 07/24/24 Rx ALPRAZolam [Xanax] 0.5 mg PO BID 07/24/24 07/24/24 History Prevagen 1 tab PO DAILY 07/24/24 07/24/24 History atenoloL [Tenormin] 12.5 mg PO HS 07/24/24 07/24/24 History traMADol HCL 50 mg PO DAILY PRN 07/24/24 07/24/24 History Pantoprazole [Protonix] 40 mg PO AC-BRKFST #30 tab 07/26/24 Rx cefUROXime axetiL [Ceftin] 500 mg PO BID 2 Days #4 tab 07/26/24 Rx Allergies Allergy/AdvReac Type Severity Reaction Status Date / Time latex Allergy Severe Swelling Verified 07/24/24 18:35 of Lips povidone-iodine Allergy Unknown Rash/Hives/ Verified 07/24/24 18:35 [From Betadine] itching soap [From Betadine] Allergy Unknown Rash/Hives Verified 07/24/24 18:35 hydrocodone [From [place]] Allergy Itching Verified 07/24/24 18:35 sulfamethoxazole Allergy Rash/Hives Verified 07/24/24 18:35 [From Bactrim] trimethoprim [From Bactrim] Allergy Rash/Hives Verified 07/24/24 18:35 NSAIDS (Non-Steroidal AdvReac Unknown HX OF Verified 07/24/24 18:35 Anti-Inflamma STOMACH ULCER Surgical - Exam - General no distress, no pain - Eyes normal ocular movement, no pale - ENT normal nares, normal mucosa - Respiratory normal expansion, normal respiratory effort - Abdomen Abdomen: soft, non tender, no distended - Psychiatric oriented to time, oriented to person, oriented to place Assessment and Plan Assessment: D4-year[age] female patient well-known to Dr. Villegas with history of recurrent kidney stones with recent right-sided PCNL earlier this year. I reviewed her CT, she has multiple right-sided renal stone possible right ureteral stone that are fairly small but no hydronephrosis. From my and her pain is not renal in etiology as it is more of the upper chest rather than flank, and patient indicated this is not similar to her kidney stone pain. She is okay for discharge from urology standpoint, I did advise her to follow-up with Dr. Villegas as an outpatient given her persistent recurrent stones
[2024-11-13 13:41] VITALS: BMI 28.7
[~2024-11-16] MED LIST changes: -DEXAMETHASONE SOD PHOSPHATE 4 MG/ML 1 ML VIAL IV ONE; +LIDOCAINE 1% (10MG/ML) FOR IV START INTRADERMA PRN; +LIDOCAINE 1% INJ 10MG/ML (20 ML MDV) ONE; -MIDAZOLAM 2 MG/2 ML VIAL IV PRN; -ONDANSETRON 4 MG/2 ML VIAL IVP ONE; +PROPOFOL 10 MG/ML 20 ML VIAL IV ONE; -fentaNYL (PF) 50 MCG/ML 2 ML AMP IV PRN
[2024-11-16 12:46] VITALS: TEMP 98.4
[2024-11-16] MEDS: LACTATED RINGERS 1,000 ML IV SCH (12:54)
[2024-11-16] MEDS: IV FLUID CONTINUATION 1,000 ML IV ONE (12:54)
--- NOTE | 2024-11-16 13:05 | P.GSHP ---
History of Present Illness H&P Date: 11/16/24 Chief Complaint: Epigastric pain 84-year-old female here for EGD. Patient complaints of chronic nausea and epigastric pain. History of previous gastric bypass. Last CAT scan performed in July shows no definite explanation for her pain. Patient says her symptoms started after dealing with kidney stones last year. Past Medical History Past Medical History: Atrial Fibrillation, Hypertension Additional Past Medical History / Comment(s): Current kidney stones. 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 History of Any Multi-Drug Resistant Organisms: None Reported Past Surgical History: Bariatric Surgery, Joint Replacement, Orthopedic Surgery Additional Past Surgical History / Comment(s): IVC FILTER RIGHT GROIN, GASTRIC BYPASS (NOV 2009) AND 9 DAYS LATER SURGERY FOR BOWEL OBSTRUCTION, BILATERAL KNEE REPLACEMENTS, CYST REMOVED FROM LEFT WRIST, RIGHT ROTATOR CUFF REPAIR, right hip replacement. KIDNEY STONE PROCEDURES Past Anesthesia/Blood Transfusion Reactions: No Reported Reaction, Motion Sickness Additional Past Anesthesia/Blood Transfusion Reaction / Comment(s): no problems with prior blood transfusion Smoking Status: Never smoker - Past Family History Son(s) Family Medical History: Cancer Mother Family Medical History: Cancer Additional Family Medical History / Comment(s): OVARIAN Cancer. Sister(s) Family Medical History: Cancer Additional Family Medical History / Comment(s): 2 sisters had cancer(breast,lung). Brother(s) Family Medical History: Cancer Additional Family Medical History / Comment(s): BONE CANCER. Medications and Allergies Home Medications Medication Instructions Recorded Confirmed Type Multivitamins, Thera [Multivitamin 1 tab PO DAILY 11/11/15 11/16/24 History (formulary)] Apixaban [Eliquis] 5 mg PO BID #60 tab 11/21/23 11/16/24 Rx ALPRAZolam [Xanax] 0.5 mg PO BID 07/24/24 11/16/24 History Prevagen 1 tab PO DAILY 07/24/24 11/16/24 History atenoloL [Tenormin] 12.5 mg PO HS 07/24/24 11/16/24 History traMADol HCL 50 mg PO DAILY PRN 07/24/24 11/16/24 History Pantoprazole [Protonix] 40 mg PO -BRKFST #30 tab 07/26/24 11/16/24 Rx Allergies Allergy/AdvReac Type Severity Reaction Status Date / Time latex Allergy Severe Swelling Verified 11/16/24 12:31 of Lips povidone-iodine Allergy Unknown Rash/Hives/ Verified 11/16/24 12:31 [From Betadine] itching soap [From Betadine] Allergy Unknown Rash/Hives Verified 11/16/24 12:31 hydrocodone [From [place]] Allergy Itching Verified 11/16/24 12:31 sulfamethoxazole Allergy Rash/Hives Verified 11/16/24 12:31 [From Bactrim] trimethoprim [From Bactrim] Allergy Rash/Hives Verified 11/16/24 12:31 NSAIDS (Non-Steroidal AdvReac Unknown HX OF Verified 11/16/24 12:31 Anti-Inflamma STOMACH ULCER Surgical - Exam Vital Signs Temp Pulse Resp BP Pulse Ox 98.4 F 82 18 178/74 98 11/16/24 12:45 11/16/24 12:45 11/16/24 12:45 11/16/24 12:45 11/16/24 12:45 Physical exam: General: Well-developed, well-nourished HEENT: Normocephalic, sclerae nonicteric Abdomen: Nontender, nondistended Extremities: No edema Neuro: Alert and oriented Assessment and Plan (1) Epigastric pain Narrative/Plan: Will proceed with EGD at this time. Current Visit: Yes Status: Acute Code(s): R10.13 - EPIGASTRIC PAIN SNOMED Code(s): 58379867
--- NOTE | 2024-11-16 13:11 | P.PCN ---
Date of Procedure: 11/16/24 Procedure(s) Performed: Preoperative Dx: Epigastric pain Postoperative Dx: Minimal gastritis, normal gastrojejunostomy Procedure: EGD with Bx Anesthesia: Sedation Endoscopist: Dr. Liang Specimens: Fundus Endoscopic Procedure: The patient was on the endoscopy table in the left decubitus position. The Olympus gastroscope was inserted into the oropharynx and passed under direct visualization to the gastrojejunostomy. The scope was advanced into the jejunum and passed approximately 15 to 20 cm. No obstruction or abnormalities were noted. At the anastomosis there was minimal inflammatory changes without ulceration. There was mild inflammation in the fundus. A biopsy of the fundus took place. There was no visible hiatal hernia. The patient's esophagus appeared normal. The patient was then taken to the recovery room in stable condition per anesthesia guidelines. Recommendations: Await biopsy results. Continue Protonix. Add Carafate. No obvious endoscopic abnormalities to explain the patient's symptoms currently.
[2024-11-16 13:17] VITALS: RESP 16
[2024-11-16 13:47] VITALS: BP 134/70; PULSE 90
== END ==
LOC: ORWHC2ENDO 11:50
PROVIDERS: ATTEND Surgery
DX: K29.70 Gastritis, unspecified, without bleeding (principal); I48.91 Unspecified atrial fibrillation; I10 Essential (primary) hypertension; E78.5 Hyperlipidemia, unspecified; F41.9 Anxiety disorder, unspecified; Z79.01 Long term (current) use of anticoagulants; Z79.899 Other long term (current) drug therapy; Z87.11 Personal history of peptic ulcer disease; Z98.84 Bariatric surgery status; Z91.040 Latex allergy status; Z88.8 Allergy status to other drugs, medicaments and biological substances; Z88.6 Allergy status to analgesic agent; Z88.1 Allergy status to other antibiotic agents; Z88.5 Allergy status to narcotic agent; Z88.2 Allergy status to sulfonamides
CPT/HCPCS: 88305; 43239; J2003; J2704

== ENCOUNTER → 2025-06-01 | Outpatient (CLI) | payer MEDICARE | END | disposition home or self-care (01) | LOC: RADUSWWP 12:30 | PROVIDERS: ATTEND Internal Medicine | DX: Z53.9 Procedure and treatment not carried out, unspecified reason (principal) ==

== ENCOUNTER → 2025-06-01 | Outpatient (CLI) | payer MEDICARE ==
--- NOTE | 2025-06-01 13:41 | US ---
EXAMINATION TYPE: US carotid duplex BILAT DATE OF EXAM: 06/01/2025 COMPARISON: 02/05/23 CLINICAL INDICATION: Female, 85 years old with history of G45.1 CAROTID ARTERY SYNDROME (HEMISPHERIC) ; stenosis Additional History: G45.9 Transient Ischemic Attack (TIA) various Most positive vascular findings of extracranial vessels; specified laterality eye & ear disorders TECHNIQUE: Grayscale, color Doppler and spectral Doppler evaluation of the bilateral carotid systems and vertebral arteries. Indirect Doppler criteria was utilized. FINDINGS: EXAM MEASUREMENTS: RIGHT: Peak Systolic Velocity (PSV) cm/sec ----- Right CCA: 75.6 ----- Right ICA: 106.9 ----- Right ECA: 55.6 ICA/CCA ratio: 1.4 RIGHT: End Diastole cm/sec ----- Right CCA: 19.7 ----- Right ICA: 38.3 ----- Right ECA: 9.5 LEFT: Peak Systolic Velocity (PSV) cm/sec ----- Left CCA: 77.0 ----- Left ICA: 108.0 ----- Left ECA: 55.6 ICA/CCA ratio: 1.4 LEFT: End Diastole cm/sec ----- Left CCA: 23.8 ----- Left ICA: 44.9 ----- Left ECA: 5.1 VERTEBRALS (direction of flow): Right Vertebral: Antegrade Left Vertebral: Antegrade Rhythm: Normal [employer] NOTES: plaque seen throughout bilateral CCA's, bulbs, and ICA's. Color Doppler imaging shows patency with blood flow throughout the carotid artery. Spectral waveforms are within normal limits. IMPRESSION: Right: No hemodynamically significant stenosis. Left: No hemodynamically significant stenosis. Criteria for Assigning % of Stenosis / Diameter reduction (Estimation based on the indirect measurements of the internal carotid artery velocities (ICA PSV). 1. Normal (no stenosis)=ICA PSV < 180 cm/s: ratio < 2.0: ICA EDV<40 cm/s. 2. Less than 50% stenosis=ICA PSV < 180 cm/s: ratio < 2.0: ICA EDV<40 cm/s. 3. 50 to 69% stenosis=ICA PSV of 180 to 230 cm/s: ration 2.0 ? 4.0: ICA EDV 40-100 cm/s. PSV 125-180 cm/sec and ICA/CCA PSV Ratio ? 2.0 is also consistent with 50-69% stenosis 4. Greater than 70% stenosis to near occlusion= ICA PSV > 230 cm/s: ratio > 4.0: ICA EDV > 100 cm/s. 5. Near occlusion= ICA PSV velocities may be low or undetectable: variable ratio and ICA EDV. 6. Total occlusion=unable to detect flow. [facility], , 06/01/2025 1:39 PM
--- NOTE | 2025-06-01 14:19 | US ---
EXAMINATION TYPE: US abdomen limited DATE OF EXAM: 06/01/2025 COMPARISON: 07/26/24 CLINICAL INDICATION: Female, 85 years old with history of G45.1 CAROTID ARTERY SYNDROME (HEMISPHERIC) ; abdominal pain after eating TECHNIQUE: Grayscale and color Doppler imaging of the right upper quadrant was performed. FINDINGS: EXAM MEASUREMENTS: Liver Length: 13.0 cm Gallbladder Wall: 0.23 cm CBD: 0.32 cm Right Kidney: 10.6 x 3.9 x 4.7 cm CARROTER NOTES: Severely limited exam due to bowel gas Pancreas: parts seen appear wnl, limited due to bowel gas Liver: wnl Gallbladder: appears wnl Evidence for sonographic Girard's sign: No CBD: wnl Right Kidney: wnl IMPRESSION: No evidence for acute process. [facility], , 06/01/2025 2:17 PM
[2025-06-01 18:57] LABS: Basophils # (A) 0.07 X 10*3/uL (0.00-0.10); Basophils % (A) 1.2 %; Eosinophils # (A) 0.38 X 10*3/uL (0.04-0.35); Eosinophils % (A) 6.6 %; HCT 37.6 % (37.2-46.3); HGB 11.4 g/dL (12.0-15.0); Immature Grans, Automated 0.20 %; Lymphocytes # (A) 1.97 X 10*3/uL (0.90-5.00); Lymphocytes % (A) 34.1 %; MCH 29.8 pg (27.0-32.0); MCHC 30.3 g/dL (32.0-37.0); MCV 98.2 FL (80.0-97.0); Monocytes # (A) 0.65 X 10*3/uL (0.20-1.00); Monocytes % (A) 11.2 %; NRBC Per 100 WBC 0 X 10*3/uL (0.00-0.01); Neutrophils # (A) 2.70 X 10*3/uL (1.80-7.70); Neutrophils % (A) 46.7 %; Platelet Count 229 X 10*3/uL (140-440); RBC 3.83 X 10*6/uL (4.10-5.20); RDW 15.5 % (11.5-14.5); WBC 5.78 X 10*3/uL (4.50-10.00)
[2025-06-01 19:14] LABS: ALT 23 U/L (8-44); AST 31 U/L (13-35); Albumin 3.9 g/dL (3.8-4.9); Albumin/Globulin Ratio 1.26 Ratio (1.60-3.17); Alkaline Phosphatase 79 U/L (41-126); Anion Gap 10.00 mmol/L (4.00-12.00); BUN/Creat Ratio 26.58 Ratio (12.00-20.00); Blood Urea Nitrogen 31.9 mg/dL (9.0-27.0); Calcium 9.0 mg/dL (8.7-10.3); Carbon Dioxide 25.0 mmol/L (21.6-31.8); Chloride 109 mmol/L (96-109); Cholesterol 202.00 mg/dL (0.00-200.00); Globulin 3.1 g/dL (1.6-3.3); Glucose 92 mg/dL (70-110); HDL Cholesterol 57.80 mg/dL (40.00-60.00); LDL Cholesterol,Calculated 128.8 mg/dL (0.0-131.0); Potassium 4.5 mmol/L (3.5-5.5); Sodium 144 mmol/L (135-145); Total Protein 7.0 g/dL (6.2-8.2); Triglycerides 77.10 mg/dL (0.00-149.00); VLDL Calculation 15.42 mg/dL (5.00-40.00)
== END | disposition home or self-care (01) ==
LOC: RADUSWWP 12:25
PROVIDERS: ATTEND Internal Medicine
DX: G45.1 Carotid artery syndrome (hemispheric) (principal); E78.00 Pure hypercholesterolemia, unspecified; N18.31 Chronic kidney disease, stage 3a
CPT/HCPCS: 76705; 80053; 80061; 85025; 93880

== ENCOUNTER 2025-06-02 10:56 | Emergency (ER) | payer MEDICARE ==
[2025-06-02 11:00] VITALS: RESP 16
--- NOTE | 2025-06-02 11:38 | ED ---
Extremity Problem HPI - General Chief complaint: Extremity Problem,Nontraumatic Stated complaint: Right thigh pain Time Seen by Provider: 06/02/25 11:00 Source: patient, RN notes reviewed Mode of arrival: wheelchair Limitations: no limitations - History of Present Illness Initial comments: This is an 85-year-old female who presents to the emergency department for right leg pain. Patient had a right hip replacement around 8 years ago and ever since then she has had occasional problems with this leg. However, for the last 1 to 2 months she has had burning and shooting pain to the right thigh. States that this is only present when she palpates the area. It is not worse with movement or ambulation. Denies any rashes, swelling, or external abnormalities to this area. The pain never travels past the knee. MD Complaint: extremity pain - Related Data Home Medications Medication Instructions Recorded Confirmed Multivitamins, Thera [Multivitamin 1 tab PO DAILY 11/11/15 11/16/24 (formulary)] ALPRAZolam [Xanax] 0.5 mg PO BID 07/24/24 11/16/24 Prevagen 1 tab PO DAILY 07/24/24 11/16/24 atenoloL [Tenormin] 12.5 mg PO HS 07/24/24 11/16/24 traMADol HCL 50 mg PO DAILY PRN 07/24/24 11/16/24 Previous Rx's Medication Instructions Recorded Apixaban [Eliquis] 5 mg PO BID #60 tab 11/21/23 Pantoprazole [Protonix] 40 mg PO AC-BRKFST #30 tab 07/26/24 Sucralfate [Carafate] 1 gm PO BID #60 tablet 11/16/24 Capsaicin Cream [Trixaicin Cream] 1 applic TOPICAL QID PRN #60 gm 06/02/25 Lidocaine 5% Oint [Xylocaine 5% 1 applic TOPICAL TID PRN #50 gm 06/02/25 Oint] Allergies Allergy/AdvReac Type Severity Reaction Status Date / Time latex Allergy Severe Swelling Verified 06/02/25 10:59 of Lips povidone-iodine Allergy Unknown Rash/Hives/ Verified 06/02/25 10:59 [From Betadine] itching soap [From Betadine] Allergy Unknown Rash/Hives Verified 06/02/25 10:59 hydrocodone [From [place]] Allergy Itching Verified 06/02/25 10:59 sulfamethoxazole Allergy Rash/Hives Verified 06/02/25 10:59 [From Bactrim] trimethoprim [From Bactrim] Allergy Rash/Hives Verified 06/02/25 10:59 NSAIDS (Non-Steroidal AdvReac Unknown HX OF Verified 06/02/25 10:59 Anti-Inflamma STOMACH ULCER Review of Systems ROS Statement: Those systems with pertinent positive or pertinent negative responses have been documented in the HPI. ROS Other: All systems not noted in ROS Statement are negative. Past Medical History Past Medical History: Atrial Fibrillation, Hypertension Additional Past Medical History / Comment(s): Current kidney stones. 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 History of Any Multi-Drug Resistant Organisms: None Reported Past Surgical History: Bariatric Surgery, Joint Replacement, Orthopedic Surgery Additional Past Surgical History / Comment(s): IVC FILTER RIGHT GROIN, GASTRIC BYPASS (NOV 2009) AND 9 DAYS LATER SURGERY FOR BOWEL OBSTRUCTION, BILATERAL KNEE REPLACEMENTS, CYST REMOVED FROM LEFT WRIST, RIGHT ROTATOR CUFF REPAIR, right hip replacement. KIDNEY STONE PROCEDURES Past Anesthesia/Blood Transfusion Reactions: No Reported Reaction, Motion Sickness Additional Past Anesthesia/Blood Transfusion Reaction / Comment(s): no problems with prior blood transfusion Past Psychological History: Anxiety Smoking Status: Never smoker - Past Family History Son(s) Family Medical History: Cancer Mother Family Medical History: Cancer Additional Family Medical History / Comment(s): OVARIAN Cancer. Sister(s) Family Medical History: Cancer Additional Family Medical History / Comment(s): 2 sisters had cancer(breast,lung). Brother(s) Family Medical History: Cancer Additional Family Medical History / Comment(s): BONE CANCER. General Exam Limitations: no limitations General appearance: alert, in no apparent distress Head exam: Present: atraumatic, normocephalic, normal inspection Respiratory exam: Present: normal lung sounds bilaterally. Absent: respiratory distress, wheezes, rales, rhonchi, stridor Cardiovascular Exam: Present: regular rate, normal rhythm Extremities exam: Present: other (Tenderness to palpation over the right thigh. No swelling, erythema, or induration. Full range of motion. No calf tenderness. 2+ DP and PT pulses) Neurological exam: Present: alert, oriented X3, CN II-XII intact Psychiatric exam: Present: normal affect, normal mood Skin exam: Present: warm, dry, intact, normal color. Absent: rash Course Vital Signs 06/02/25 06/02/25 10:57 13:07 Temperature 97.9 F 98 F Pulse Rate 88 80 Respiratory 16 16 Rate Blood Pressure 114/66 112/72 O2 Sat by Pulse 98 98 Oximetry Medical Decision Making - Medical Decision Making This is an 85-year-old female who presents to the emergency department for right leg pain. Was pt. sent in by a medical professional or institution? @ -No Did you speak to anyone other than the patient for history? @ -No Did you review nursing and triage notes? @ -Yes, and I agree, it is accurate with regards to the patient's symptoms. Were old charts reviewed? @ -No Differential Diagnosis? @ -Leg fracture, leg sprain, DVT, PVD, arterial insufficiency, iliac artery aneurysm, cellulitis, compartment syndrome, tendinopathy, nerve entrapment, piriformis syndrome, osteoarthritis, rhabdomyolysis, myositis, cramping from an electrolyte imbalance, this is not meant to be an all inclusive list. EKG interpreted by me (3pts min.)? @ -Not obtained X-rays interpreted by me (1pt min.)? @ -X-ray of the right hip and pelvis obtained. My interpretation identifies no acute fractures. X-ray of the lumbar spine obtained. My interpretation identifies no acute fractures. CT interpreted by me (1pt min.)? @ -Not obtained U/S interpreted by me (1pt. min.)? @ -Duplex ultrasound of the right lower extremity obtained. My interpretation identifies no evidence of a DVT. What testing was considered but not performed? (CT, X-rays, U/S, labs)? Why? @ -None What meds were considered but not given? Why? @ -None Did you discuss the management of the patient with other professionals? @ -No Did you reconcile home meds? @ -No Was smoking cessation discussed for >3mins.? @ -No Was critical care preformed (if so, how long)? @ -No Were there social determinants of health that impacted care today? How? (Homelessness, low income, unemployed, alcoholism, drug addiction, transportation, low edu. Level, literacy, decrease access to med. care, halfway, rehab)? @ -No Was there de-escalation of care discussed even if they declined? (Discuss DNR or withdrawal of care, Hospice)? @ -No What co-morbidities impacted this encounter? (DM, HTN, Smoking, COPD, CAD, Cancer, CVA, Hep., AIDS, mental health diagnosis, sleep apnea, morbid obesity)? @ -A-fib Was patient admitted / discharged? @ -Discharged. X-ray of the right hip/pelvis and lumbar spine obtained revealing degenerative changes without any acute findings. Duplex ultrasound of the right lower extremity reveals no evidence of a DVT. The description and location of her symptoms is suggestive of a meralgia paresthetica or potentially sciatica coming from the back. Discussed a course of steroids, however she does not believe she can tolerate prednisone. She has had Decadron in the past without any problems. IM Decadron administered. Capsaicin cream and lidocaine cream prescribed for meralgia paresthetica. Also advised she avoid wearing belts and tight fitting clothing for the meantime. Patient discharged home in stable condition and advised to follow-up with her PCP. Case discussed with ED attending Dr. Baer. Return precautions reviewed in depth, the patient is instructed to return to the emergency department with any new, worsening, or concerning symptoms. Patient verbalized understanding. Undiagnosed new problem with uncertain prognosis? @ -None Drug Therapy requiring intensive monitoring for toxicity (Heparin, Nitro, Insulin, Cardizem)? @ -None Were any procedures done? @ -None Diagnosis/symptom? @ -Right leg pain, meralgia paresthetica Acute, or Chronic, or Acute on Chronic? @ -Acute Uncomplicated (without systemic symptoms) or Complicated (systemic symptoms)? @ -Uncomplicated Side effects of treatment? @ -Not Exacerbation, Progression, or Severe Exacerbation] @ -Not applicable Poses a threat to life or bodily function? @ -No - Radiology Data Radiology results: report reviewed, image reviewed Disposition Clinical Impression: Right thigh pain, Meralgia paresthetica of right side Disposition: HOME SELF-CARE Instructions (If sedation given, give patient instructions): Meralgia Paresthetica (ED) Additional Instructions: Return to the emergency department with any new, worsening, or concerning symptoms. Try to avoid any tight fitting clothing or using belts for the meantime. You can try applying both topical creams to the outside of the thigh to see if that helps with the sensation. Follow-up with orthopedics as listed below. Follow up with your primary care as well. Prescriptions: Capsaicin Cream [Trixaicin Cream] 1 applic TOPICAL QID PRN #60 gm PRN Reason: Pain Lidocaine 5% Oint [Xylocaine 5% Oint] 1 applic TOPICAL TID PRN #50 gm PRN Reason: Pain Is patient prescribed a controlled substance at d/c from ED?: No Referrals: Jackie Perez MD [Primary Care Provider] - 1-2 days Time of Disposition: 12:50
--- NOTE | 2025-06-02 11:49 | XR ---
Lumbar spine. HISTORY: Leg pain. COMPARISON: 05/15/2024. TECHNIQUE: 3 views lumbar spine were obtained. FINDINGS: The lumbar vertebral segments are normal in height and alignment there is no fracture or subluxation. There is persistent severe disc space narrowing, vacuum phenomena, hypertrophic spurring at the L1-2, L2-3, L3-4, L4-5 levels consistent with severe degenerative disc disease. There is an IVC filter unchanged in position. There are surgical clips in the epigastric region. 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 No interval change compare d to previous. [facility], , 06/02/2025 11:47 AM
--- NOTE | 2025-06-02 11:51 | XR ---
EXAMINATION TYPE: XR Hip RT and AP Pelvis DATE OF EXAM: 06/02/2025 COMPARISON: 03/27/2019 CLINICAL INDICATION: Female, 85 years old with history of Leg pain; TECHNIQUE: A single AP view of the pelvis is obtained. Two views of the right hip are obtained. FINDINGS: There is no acute fracture/dislocation evident in the pelvis. The hip and sacroiliac join ts appear symmetric and unremarkable. The overlying soft tissue appears unremarkable. Two views of right hip show no acute fracture or dislocation. There is a right hip prosthesis in sati sfactory position. There is marked arteriovascular calcification. There is marked degenerative disc disease in lower lumbar spine. IMPRESSION: 1. No change in the right hip prosthesis. No acute fracture or dislocation. 2. Diffuse arteriovascular calcification. 3. Marked degenerative disc disease in lower lumbar spine. [facility], , 06/02/2025 11:49 AM
--- NOTE | 2025-06-02 12:35 | US ---
EXAMINATION TYPE: US venous doppler duplex LE RT DATE OF EXAM: 06/02/2025 12:26 PM COMPARISON: NONE CLINICAL INDICATION: Female, 85 years old with history of Leg pain; Pain. pt has IVC filter. Pt is on eliquis. TECHNIQUE: The lower extremity deep venous system is examined utilizing real time linear array sonog giorgio with graded compression, color doppler sonography, and spectral doppler. SIDE PERFORMED: Right FINDINGS: VESSELS IMAGED: Common Femoral Vein Deep Femoral Vein Greater Saphenous Vein * Femoral Vein Popliteal Vein Small Saphenous Vein * Proximal Calf Veins (* superficial vessels) Right Leg: Exam is limited due to edema. No evidence of DVT. PTVS and peroneal veins were not visualized. No abnormality seen right anterior quintanilla. IMPRESSION: Limited right lower extremity venous Doppler due to the patient's leg edema. There is no evidence of DVT from the common femoral vein to the popliteal vein [facility], Workstation: [id number] 06/02/2025 12:33 PM
[2025-06-02] MEDS: DEXAMETHASONE SOD PHOSPHATE 10 MG/ML 1 ML VIAL IM STA (12:56)
[2025-06-02 13:10] VITALS: BP 112/72; PULSE 80; TEMP 98
== END 2025-06-02 13:10 | disposition home or self-care (01) ==
LOC: EC 10:56
DX: M79.651 Pain in right thigh (principal); G57.11 Meralgia paresthetica, right lower limb; Z88.1 Allergy status to other antibiotic agents; Z88.2 Allergy status to sulfonamides; Z88.5 Allergy status to narcotic agent; Z88.6 Allergy status to analgesic agent; Z91.040 Latex allergy status; Z88.8 Allergy status to other drugs, medicaments and biological substances
CPT/HCPCS: 72100; 73502; 93971; 99284; 96372; J1100